=== PATIENT | male | born 1970 | race Two or more races ===

== ENCOUNTER 2024-09-03 20:46 | Emergency (ER) | payer MEDICAID, OTHER, SELFPAY ==
--- NOTE | ~2024-09-03 | XR_ITS ---
CLINICAL HISTORY: sob 1 view chest x-ray Comparison: None Findings: No consolidation or effusion. Mild bilateral emphysematous changes. No pneumothorax. Cardiac silhouette and mediastinal contours are at the upper limits of normal for technique. Osseous structures are unremarkable for technique. IMPRESSION: No consolidation. This document has been electronically signed by: Raul Robetrs MD on 09/03/2024 21:26:20
[2024-09-03 20:51] VITALS: BP 141/98; PULSE 89; RESP 18; TEMP 36.3; O2SAT 97; BMI 29.6
--- NOTE | 2024-09-03 20:51 | ECG_ITS ---
Test Reason : TACHYCARDIA Blood Pressure : */* mmHG Vent. Rate : 74 BPM Atrial Rate : 74 BPM P-R Int : 166 ms QRS Dur : 86 ms QT Int : 368 ms P-R-T Axes : 41 48 21 degrees QTcB Int : 408 ms Normal sinus rhythm Normal ECG No previous ECGs available Referred By: Josseline Gunter Electronically Signed By: Corbin Meraz
--- NOTE | 2024-09-03 20:53 | ED.GENADULT ---
HPI - General Adult General Chief complaint: General Medical Stated complaint: tachycardia Time Seen by Provider: 09/03/24 21:41 Source: patient Mode of arrival: ambulatory Limitations: no limitations History of Present Illness ED Provider: HPI narrative: Patient's history of hypertension and palpitation came from [place] unable to get his medication filled asking for refill of the medication patient did not take his medication for last 2 days on arrival patient's blood pressure was 141/98 pulse rate of 89 no chest pain no shortness a breath Related Data Previous Rx's ?Medication ?Instructions ?Recorded olmesartan 40 mg tablet 40 mg PO DAILY #90 tabs 09/03/24 propranolol 10 mg tablet 10 mg PO BID #180 tabs 09/03/24 Allergies Allergy/AdvReac Type Severity Reaction Status Date / Time No Known Allergies Allergy Verified 09/03/24 20:52 Review of Systems Review of Systems: Yes all other systems are reviewed and are negative [facility] Social History Social History Smoked in Last 30 Days: No Use of substances other than those prescribed or required for medical reasons: No Advance Directives: No Advance Directives Information Provided: No Do you have a plan to hurt others: No Plan Physical Exam ED Vital Signs: Vital Signs - 24 hr 09/03/24 20:51 09/03/24 22:29 09/03/24 22:36 Temperature 97.4 F 98.9 F 98.9 F Pulse Rate 89 83 83 Respiratory Rate 18 18 18 Blood Pressure 141/98 H 141/94 H 141/94 H Pulse Oximetry 97 96 96 Oxygen Delivery Method Room Air Room Air Room Air BMI result Body Mass Index 29.6 Appearance: Alert. Oriented X3. No acute distress. Eyes: PERRLA, No Nystagmus ENT: Pharynx normal. Oral Mucosa moist Neck: Normal inspection. Neck supple. CVS: Normal heart rate and rhythm. Pulses normal. Respiratory: No respiratory distress. Equal air entry bilateral, no wheezing/rales/rhonchi Abdomen: Soft and nontender. Bowel sounds are present, no mass palpable, no CVA tenderness Skin: Skin warm and dry. Normal skin color. Normal skin turgor. Extremities: No lower extremity edema. No calf tenderness Neuro: Oriented X 3. No motor deficit. No sensory deficit.No cerebellar signs , cranial nerves II-XII intact Course Course Course Narrative: This is a rapid medical exam performed by Josseline Guntre PA-C. The patient is a 54-year-old male with a history of hypertension, who is here with the tachycardia. Patient states he is visiting the area, he ran out of his blood pressure medication, he is noted to have palpitations. He denies chest pain. To note the patient does take beta-blockers. Plan to screen basic labs, a troponin EKG and chest x-ray. The patient was stable and can return to the waiting room pending his full medical assessment. Medications Administered Discontinued Medications Generic Name Dose Route Start Last Admin Trade Name Freq PRN Reason Stop Dose Admin Losartan Potassium 50 mg 09/03/24 22:14 09/03/24 22:21 Losartan Potassium 50 Mg Tablet PO 09/03/24 22:15 50 mg ONCE ONE Administration Protocol Propranolol HCl 10 mg 09/03/24 22:14 09/03/24 22:21 Propranolol Hcl 10 Mg Tablet PO 09/03/24 22:15 10 mg ONCE ONE Administration Protocol Medical Decision Making Medical Decision Making MDM Narrative: Patient's medication was refilled feeling much better , labs are stable Lab Data [facility] Lab Attestation statement: I reviewed the patient's lab results. 09/03/24 21:19 09/03/24 21:19 Labs: Lab Results 09/03/24 Range/Units 21:19 WBC 5.9 (4.8-10.8) X10*3/uL RBC 5.03 (4.60-5.80) X10*6/uL Hgb 13.9 L (14.0-18.0) g/dl Hct 41.3 L (42.0-52.0) % MCV 82.1 (80.0-98.0) fL MCH 27.6 (27.0-33.0) pg MCHC 33.7 (31.0-36.0) g/dl RDW 15.9 (11.0-16.0) % Plt Count 415 H (160-400) X10*3/uL MPV 8.8 L (9.4-12.4) fL Immature Gran % (Auto) 0.3 (0.0-0.4) % Neut % (Auto) 47.8 (45-73) % Lymph % (Auto) 35.0 (20-40) % Mercer % (Auto) 12.0 H (2-11) % Eos % (Auto) 3.9 (0-4) % Baso % (Auto) 1.0 (0-2) % Lymph # (Auto) 2.1 (1.2-4.9) X10*3/uL Mercer # (Auto) 0.7 (0.1-1.2) X10*3/uL Eos # (Auto) 0.2 (0.0-0.4) X10*3/uL Baso # (Auto) 0.1 (0.0-0.2) X10*3/uL Abs Immat Gran (auto) 0.02 (0.00-0.03) X10*3/uL Absolute Neuts (auto) 2.8 (2.0-8.3) x10*3/uL Absolute Nucleated RBC 0.000 (0.0-0.012) X10*3/uL Nucleated RBC % (auto) 0.0 (0.0-0.2) /100WBC Sodium 137 (135-145) mmol/L Potassium 4.7 (3.3-5.1) mmol/L Chloride 105 (96-108) mmol/L Carbon Dioxide 24 (22-29) mmol/L Anion Gap 13 (12-20) BUN 14 (9-16) mg/dL Creatinine 1.04 (0.5-1.4) mg/dL Estim Creat Clear Calc 98.9 Estimated GFR > 60 Random Glucose 98 (60-115) mg/dL Calcium 9.8 (8.4-10.2) mg/dL Magnesium 2.0 (1.6-2.6) mg/dL Total Bilirubin 0.3 (0.0-1.0) mg/dL AST 41 H (5-37) U/L ALT 54 H (0-40) U/L Alkaline Phosphatase 129 H (39-117) U/L Troponin I High Sens < 2.7 (<3.5-35.0) ng/L Total Protein 8.1 H (6.5-8.0) g/dL Albumin 4.4 (3.5-5.0) g/dL Discharge Plan Discharge Clinical Impression: Hypertension, Palpitations Patient Disposition: Home, Self-Care Instructions: Heart Palpitations (ED), Chronic Hypertension (DC) Additional Instructions: Take medication as prescribed Follow with PCP Prescriptions: New propranolol 10 mg tablet 10 mg PO BID Qty: 180 3RF olmesartan 40 mg tablet 40 mg PO DAILY Qty: 90 3RF Interventions: ED Discharge Assessment Last Done: 09/03/24 22:36 Discharge Date/Time: 09/03/24 22:36 Print Language: Portuguese
[2024-09-03 21:31] LABS: MANUAL DIFF FLAG NO
[2024-09-03 21:35] LABS: Basophils Absolute Auto 0.1 X10*3/uL (0.0-0.2); Eosinophils Absolute Auto 0.2 X10*3/uL (0.0-0.4); Eosinophils Percent Auto 3.9 % (0-4); Hematocrit 41.3 % (42.0-52.0); Hemoglobin 13.9 g/dl (14.0-18.0); Imm Gran Abs Auto 0.02 X10*3/uL (0.00-0.03); Imm Gran Pct Auto 0.3 % (0.0-0.4); Lymphocytes Absolute Auto 2.1 X10*3/uL (1.2-4.9); Mean Corpuscular HGB Conc 33.7 g/dl (31.0-36.0); Mean Corpuscular Hemoglobin 27.6 pg (27.0-33.0); Mean Corpuscular Volume 82.1 fL (80.0-98.0); Mean Platelet Volume 8.8 fL (9.4-12.4); Monocytes Absolute Auto 0.7 X10*3/uL (0.1-1.2); Neutrophils Absolute Auto 2.8 x10*3/uL (2.0-8.3); Neutrophils Percent Auto 47.8 % (45-73); Platelet Count 415 X10*3/uL (160-400); Red Blood Count 5.03 X10*6/uL (4.60-5.80); Red Cell Distribution Width 15.9 % (11.0-16.0); White Blood Count 5.9 X10*3/uL (4.8-10.8)
[2024-09-03 21:49] LABS: Alanine Aminotransferase 54 U/L (0-40); Albumin Level 4.4 g/dL (3.5-5.0); Alkaline Phosphatase 129 U/L (39-117); Anion Gap 13 (12-20); Aspartate Amino Transferase 41 U/L (5-37); Bilirubin Total 0.3 mg/dL (0.0-1.0); Blood Urea Nitrogen 14 mg/dL (9-16); Calcium 9.8 mg/dL (8.4-10.2); Carbon Dioxide 24 mmol/L (22-29); Chloride 105 mmol/L (96-108); Creatinine Clr Calc Pharmacy 98.9; Estimated Glomerular Filt Rate > 60; Glucose Random 98 mg/dL (60-115); Potassium 4.7 mmol/L (3.3-5.1); Sodium 137 mmol/L (135-145); Total Protein 8.1 g/dL (6.5-8.0)
[2024-09-03 21:58] LABS: Troponin-I High Sensitivity < 2.7 ng/L (<3.5-35.0)
--- NOTE | 2024-09-03 22:03 | PC.NURSE ---
[place] [facility] [place] assumed care at this time. Pt reports he ran out of meds while here visiting his mom. Denies any symptoms. Provider to bedside for primary eval.
[2024-09-03] MEDS: Propranolol HCL 10 MG TABLET PO (22:21)
[2024-09-03] MEDS: Losartan Potassium 50 MG TABLET PO (22:21)
[2024-09-03 22:29] VITALS: BP 141/94; PULSE 83; RESP 18; TEMP 37.2; O2SAT 96
[2024-09-03 22:36] VITALS: BP 141/94; PULSE 83; RESP 18; TEMP 37.2; O2SAT 96
== END 2024-09-03 22:36 | disposition home or self-care (01) ==
PROVIDERS: Physician Assistant Medical; Emergency Provider Internal Medicine
DX: R00.0 Tachycardia, unspecified (principal); I10 Essential (primary) hypertension; R00.2 Palpitations; Z79.899 Other long term (current) drug therapy
CPT/HCPCS: 36415; 71045; 80053; 83735; 84484; 85025; 93005; 99283; 99284

== ENCOUNTER → 2024-09-03 20:51 | Outpatient (BNV) | payer SELFPAY | PROVIDERS: Emergency Provider Internal Medicine; Visit Provider Internal Medicine Cardiovascular Disease | DX: R00.0 Tachycardia, unspecified (principal) | CPT/HCPCS: 93010 ==

== ENCOUNTER → 2024-09-03 20:51 | Outpatient (BNV) | payer SELFPAY | PROVIDERS: Emergency Provider Internal Medicine; Visit Provider Radiology Neuroradiology | DX: R06.02 Shortness of breath (principal) | CPT/HCPCS: 71045 ==

== ENCOUNTER → 2024-12-30 22:31 | Outpatient (BNV) | payer MEDICAID, SELFPAY | PROVIDERS: Emergency Provider Emergency Medicine; Visit Provider Radiology Diagnostic Radiology | DX: M25.522 Pain in left elbow (principal) | CPT/HCPCS: 73080 ==

== ENCOUNTER 2024-12-30 23:18 | Emergency (ER) | payer MEDICAID, OTHER, SELFPAY ==
--- NOTE | ~2024-12-30 | XR_ITS ---
CLINICAL HISTORY: pain 3 views left elbow Comparison: None Findings: There is an ossific fragment which appears corticated posterior to the elbow joint in the region of the triceps tendon likely heterotopic ossification or chronic avulsion fracture. There may be mild posterior soft tissue swelling. Joint spaces and joint alignment are normal. No elbow effusion is seen. 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 This document has been electronically signed by: Sohan Oneill MD on 12/31/2024 00:15:38
[2024-12-30 23:21] VITALS: BP 133/72; PULSE 72; RESP 20; TEMP 36.6; O2SAT 99; BMI 32.4
--- NOTE | 2024-12-31 01:14 | ED.EXTPRO ---
HPI - Extremity Problem General Chief complaint: Extremity Injury, Upper Stated complaint: right elbow pain Time Seen by Provider: 12/31/24 00:37 Source: patient Mode of arrival: ambulatory Limitations: no limitations History of Present Illness ED Provider: Dr. Lima Pham HPI Narrative: Patient comes to the emergency room complaining of left elbow pain. 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 Patient states that he has been using ibuprofen without any significant relief. Patient states that at home he tried lifting a box and heard a crack at his elbow. Patient states that he called his orthopedic surgeon in [facility] and he was asked to try avoiding moving his arm/immobilize and NSAIDs. Patient states that he has history of bilateral bicipital tears. However, patient states that he did not get surgery because he can not afford. Related Data Previous Rx's ?Medication ?Instructions ?Recorded olmesartan 40 mg tablet 40 mg PO DAILY #90 tabs 09/03/24 propranolol 10 mg tablet 10 mg PO BID #180 tabs 09/03/24 ketorolac 10 mg tablet 10 mg PO Q8H PRN pain #12 tabs 12/31/24 Allergies Allergy/AdvReac Type Severity Reaction Status Date / Time No Known Allergies Allergy Verified 12/30/24 23:26 Review of Systems Review of Systems: Constitutional : No Weight loss, No Fever, No Chills, No Night Sweats, No Fatigue, No Malaise ENT/Mouth : No Hearing loss, No Ear Pain, No Nasal Congestion, No Sinus Pain, No Hoarseness, No sore throat, No Rhinorrhea, No Swallowing Difficulty Eyes: No Eye Pain, No Swelling, No Redness, No Foreign Body, No Discharge, No Vision Changes Cardiovascular : No Chest Pain, No SOB, No Dyspnea on Exertion, No Orthopnea, No Edema, No Palpitations Respiratory : No Cough, No Sputum, No Wheezing, No Smoke Exposure, No Dyspnea Gastrointestinal : No Nausea, No Vomiting, No Diarrhea, No Constipation, No abdominal Pain, No Hematochezia, No Melena Genitourinary : no irregular bleeding, No Dysuria, No Urinary Frequency, No Hematuria, No Urinary Incontinence, No Urgency, No Flank Pain, No Urinary Flow Changes, No Hesitancy Musculoskeletal : Complaining of left elbow pain, No Myalgias, No Joint Swelling Skin : No Skin Lesions, No rash Neuro : No Weakness, No Numbness, No Paresthesias, No Loss of Consciousness, No Dizziness, No Headache Psych : No Anxiety/Panic, No Depression, No SI/HI/AH/VH, No Social Issues, Heme/Lymph: No Bruising, No Bleeding,No Lymphadenopathy Endocrine : No Polyuria, No Polydipsia, No Temperature Intolerance [facility] Social History Social History Advance Directives: No Do you have a plan to hurt others: No Plan Physical Exam Vital Signs: Vital Signs: Last Vital Signs Temp 97.8 F 12/30/24 23:21 Pulse 72 12/30/24 23:21 Resp 20 12/30/24 23:21 BP 133/72 12/30/24 23:21 Pulse Ox 99 12/30/24 23:21 O2 Del Method Room Air 12/30/24 23:21 BMI result Body Mass Index 32.4 Const: Other: Appearance: Alert. Oriented X3. No acute distress. Eyes: Pupils equal, round and reactive to light. ENT: Pharynx normal. Neck: Normal inspection. Neck supple. No lymph nodes noted. No crepitus CVS: Normal heart rate and rhythm. Pulses normal. Normal S1 and S2 Respiratory: No respiratory distress. Breath sounds normal. No Wheezing. No rales Abdomen: Soft and nontender. No rigidity. No distention. Skin: Skin warm and dry. Normal skin color. Normal skin turgor. Extremities: No lower extremity edema. No Lacerations. No Rash. Patient is able to flex and extend the elbows with normal range of motion. However, it hurts doing so on the left. Patient has a small effusion. No ecchymosis, no erythema, no additional warmth to palpation over the joint. Neuro: Oriented X 3. No motor deficit. No sensory deficit. Moving all extremities. No slurred speech. CN 2 through 12 grossly intact Psych: calm, cooperative, normal affect Medical Decision Making Medical Decision Making MDM Narrative: X-rays of the elbow did not show any acute abnormality. Patient will have a chronic appearing ossific fragment in the region of the triceps tendon, likely a chronic avulsion fracture Given patient's history and physical exam, it is likely that patient has a trace tendon rupture/tear. Patient instructed to follow-up with orthopedics. Patient was given a dose of IM ketorolac and also a sling Patient will likely need an MRI. Differential Diagnosis Differential Diagnoses: The differential diagnosis associated with the presentation includes (Triceps tendon tear, olecranon fracture, bursitis, contusion) Radiology Impression Discussion of test interpretation with radiology: I have reviewed the radiologist's reading. Radiologist Impression: There is an ossific fragment which appears corticated posterior to the elbow joint in the region of the triceps tendon likely heterotopic ossification or chronic avulsion fracture. There may be mild posterior soft tissue swelling. Joint spaces and joint alignment are normal. No elbow effusion is seen. 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 Discharge Plan Discharge Clinical Impression: Injury of tendon of triceps Patient Disposition: Home, Self-Care Instructions: How to Use a Sling (ED) Additional Instructions: Please follow-up with your primary care physician tomorrow. If you have any worsening or new symptoms, please return to the emergency room or call 911 Prescriptions: New ketorolac 10 mg tablet 10 mg PO Q8H PRN (Reason: pain) Qty: 12 0RF Rx Instructions: Do not take this medication with ibuprofen or NSAIDs, only Tylenol if needed. No Action propranolol 10 mg tablet 10 mg PO BID Qty: 180 3RF olmesartan 40 mg tablet 40 mg PO DAILY Qty: 90 3RF Referrals: Bessie Alanis PA-C [Physician [facility], Orthopedics] Referral Note: Chronic avulsion fracture versus triceps tendon rupture/injury Stand Alone Forms: Work/School Release Print Language: Emirati
[2024-12-31 01:40] VITALS: BP 132/78; PULSE 75; RESP 16; TEMP 36.8; O2SAT 99
== END 2024-12-31 01:40 | disposition home or self-care (01) ==
PROVIDERS: Emergency Provider Emergency Medicine
DX: S46.301A Unspecified injury of muscle, fascia and tendon of triceps, right arm, initial encounter (principal); M25.522 Pain in left elbow; X50.0XXA Overexertion from strenuous movement or load, initial encounter; Y93.9 Activity, unspecified; Y92.9 Unspecified place or not applicable; Y99.0 Civilian activity done for income or pay
CPT/HCPCS: 73080; 96372; 99283; 99284; J1885

== ENCOUNTER 2025-01-05 14:02 | Outpatient (AMB) | payer MEDICAID, SELFPAY ==
--- NOTE | 2025-01-05 14:05 | MHC.OFFVIS ---
Vital Signs 01/05/25 14:22 Height 6 ft Weight 225 lb BMI 30.5 Intake Visit Reasons: left bicep injury, DOI 12/30/24 Intake Note: Guerrero is a 54 year old right hand dominant male who presents today for a evaluation of his left elbow pain, DOI 12/30/24. History of right shoulder surgery Patient states he lives in a 3rd floor which has a couple steps. He was coming down stairs with his phone in his left hand and his right hand was holding the bar which his slipped one the last couple steps until her tried to brace himself. He is taking naproxen with relief. 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 Remote Encoding Operations Supervisor Services: Remote Encoding Operations Supervisor Present (Latoya ([id number])) Allergies No Known Allergies Allergy (Verified 01/05/25 14:17) HPI HPI left bicep injury, DOI 12/30/24: Details: Mr. Bimal Lemus is a 54-year-old right-hand dominant male who presents to the office today for a left tricep injury that he sustained on 12/30/2024 after falling down the stairs. He felt immediate pain and developed bruising along the posterior medial aspect of the elbow. He also reports weakness with the left upper extremity after this injury. He denies any numbness or tingling. 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 Palpable defect of the triceps tendon insertion. Weakness with resisted extension. Denies numbness or tingling. NVI. Assessment & Plan Assessment & Plan (1) Rupture of left triceps tendon: Code(s): S46.312A - Strain of muscle, fascia and tendon of triceps, left arm, initial encounter Category: Medical Plan Dr. Mancia was available to see the patient with me in the office today in a collaborative treatment plan was created. Dr. Mancia and I discussed in detail the procedure and what to expect pre and post operatively. We discussed the risks, benefits and alternatives to the surgery as well as the rehabilitation course. The risks; which include, but are not limited to infection, bleeding, nerve injury, ongoing pain, swelling, and stiffness, perioperative risk of injury to bones and soft tissues, and blood clots. I?ve answered all questions and with their understanding they have consented to move forward with a left triceps tendon repair with Dr. Mancia. Additionally, I have ordered a stat MRI to evaluate the left triceps tendon rupture. Orders: Orders MR elbow LT w con Today S46.312A - Strain of muscle, fascia and tendon of triceps, left arm, initial encounter Coding Level of Care Code New Pt Level 4 (19257) Diagnoses Rupture of left triceps tendon S46.312A
[2025-01-05 14:22] VITALS: BMI 30.5
--- OUTSIDE RECORDS SUMMARY | 2025-01-05 14:54 | XMS_ITS | Clinical Summary ---
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 Name Role Phone Unavailable Primary Care Provider Unavailabl e Social History Tobacco Use Types Packs/Day Years Used Date Smoking Tobacco: Never Assessed Sex and Gender Information Value Date Recorded Sex Assigned at Not on file Legal Sex Male 12:39 PM EDT Gender Identity Not on file Sexual Orientation Not on file Plan of Treatment Upcoming Encounters Date Type Department Care Team ([facility] st Contact Info) Description 01/12/2025 1:45 PM EDT Telemedicine [facility] [address] [place] [address] Viktor Kelley MD [address] [place], [place] [id number] Health Maintenance Due Date Last Done Comments CT Colonography 1970 Colonoscopy 1970 Colorectal Cancer Screening 1970 Depression Screening 1970 FIT DNA/Cologuard 1970 FIT 1970 FOBT 1970 HIV Screening 1970 Lipid Panel 1970 SDOH Screening 1970 Sigmoidoscopy 1970 Disability Screening 1970 Alcohol/Substance Use Screening 1982 Tobacco Screening 1982 Hepatitis C Screening 1988 DTaP/Tdap/Td Vaccines (1 - Tdap) 1989 Hepatitis B Vaccines (1 of 3 - 19+ 3-dose series) 1989 Pneumococcal Vaccine: 50+ Ye ars (1 of 1 - PCV) 2020 Zoster Vaccines (1 of 2) 2020 COVID-19 Vaccine ( - 2023-2 5 season) 2024 Influenza Vaccine (#1) 2025 RSV Patients and Pa tients Aged 60 years or older (1 - 1-dose 75+ series) 2045 HIB Vaccines Aged Out No longer eligi ble based on patient's age to complete this topic HPV Vaccines Aged Out No longer eligi ble based on patient's age to complete this topic Hepatitis A Vaccines Aged Out No long er eligible based on patient's age to complete this topic IPV Vaccines Aged Out No longer eligi ble based on patient's age to complete this topic Meningococcal B Vaccine Aged Out No l onger eligible based on patient's age to complete this topic Meningococcal Vaccine Aged Out No berna rogelio eligible based on patient's age to complete this topic RSV under 20 months Aged Out No longe r eligible based on patient's age to complete this topic Rotavirus Vaccines Aged Out No longer eligible based on patient's age to complete this topic Insurance [facility]
== END 2025-01-05 15:22 | disposition home or self-care (01) ==
LOC: HO.HOS 14:03
PROVIDERS: Visit Provider Physician Assistant
DX: S46.312A Strain of muscle, fascia and tendon of triceps, left arm, initial encounter (principal)
CPT/HCPCS: 99204

== ENCOUNTER → 2025-01-05 14:02 | Outpatient (BNVA) | payer MEDICAID, OTHER, SELFPAY | PROVIDERS: Visit Provider Physician Assistant | DX: M25.522 Pain in left elbow (principal); S46.312A Strain of muscle, fascia and tendon of triceps, left arm, initial encounter | CPT/HCPCS: 99212 ==

== ENCOUNTER 2025-02-02 14:02 | Outpatient (REF) | payer MEDICAID, OTHER, SELFPAY ==
[2025-02-02 16:25] LABS: MANUAL DIFF FLAG NO
[2025-02-02 16:55] LABS: Hematocrit 36.3 % (42.0-52.0); Hemoglobin 11.6 g/dl (14.0-18.0); Imm Gran Abs Auto 0.05 X10*3/uL (0.00-0.03); Imm Gran Pct Auto 0.9 % (0.0-0.4); Lymphocytes Absolute Auto 2.2 X10*3/uL (1.2-4.9); Mean Corpuscular HGB Conc 32.0 g/dl (31.0-36.0); Mean Corpuscular Hemoglobin 26.2 pg (27.0-33.0); Mean Corpuscular Volume 82.1 fL (80.0-98.0); NRBC Abs Auto 0.000 X10*3/uL (0.0-0.012); NRBC Pct Auto 0.0 /100WBC (0.0-0.2); Platelet Count 392 X10*3/uL (160-400); Red Blood Count 4.42 X10*6/uL (4.60-5.80); White Blood Count 5.9 X10*3/uL (4.8-10.8)
[2025-02-02 17:25] LABS: Alanine Aminotransferase 38 U/L (0-40); Albumin Level 4.4 g/dL (3.5-5.0); Alkaline Phosphatase 92 U/L (39-117); Anion Gap 14 (12-20); Aspartate Amino Transferase 26 U/L (5-37); Blood Urea Nitrogen 18 mg/dL (9-16); Calcium 9.0 mg/dL (8.4-10.2); Carbon Dioxide 23 mmol/L (22-29); Chloride 105 mmol/L (96-108); Cholesterol 237 mg/dL (<200); Estimated Glomerular Filt Rate > 60; HDL Cholesterol 60 mg/dL (>40); Potassium 3.9 mmol/L (3.3-5.1); Sodium 138 mmol/L (135-145); Total Protein 7.1 g/dL (6.5-8.0); Triglycerides 91 mg/dL (<150)
== END 2025-02-02 14:03 | disposition home or self-care (01) ==
LOC: HO.HHCL 14:02
PROVIDERS: Referring Provider Nurse Practitioner Family; Visit Provider Nurse Practitioner Family
DX: I10 Essential (primary) hypertension (principal)
CPT/HCPCS: 36415; 80053; 80061; 85025

== ENCOUNTER 2025-02-26 13:56 | Outpatient (RCR) | payer MEDICAID, OTHER, SELFPAY ==
--- NOTE | 2025-02-05 14:58 | MHC.OT.EP ---
[facility] Office [address] [phone] F: [phone] F: [phone] Occupational Therapy Plan of Care Patient Name: Guerrero Lemus Date of Evaluation: 02/05/25 Diagnosis: Left Tricep Tendon Rupture Pain Location: Minimal pain in posterior elbow at distal tricep (medially), tender to palpate Pain Score: 3 Pain Scale Used: Numeric (0 - 10) Aggravating Factors: Avoiding heavy lifting Alleviating Factors: Ibuprofen, ice Assessment: 54 yo male presents to OT for conservative treatment of left tricep tendon rupture. He was initially seen in ED and referred for surgery, but no-showed for surgery x2 and now referred to OT. MRI ordered (not completed because of work limitations). On assessment today, he has mild pain in distal tricep with tenderness to palpate and soft tissue mass present at posterior elbow. He has full AROM on elbow, MMT NT, but gross grasp intact and patient avoiding heavy use. We will continue OT for conservative treatment and progress strengthening through protocol. Frequency and Duration: The patient will be seen 2x/wk for 6 weeks Short Term Goals: Ind w/ soft tissue massage and edema management Ind w/ joint protection/activity modification for protection Alf Goals: Ind w/ progression of strengthening Ease w/ IADL and work tasks Treatment Plan: Therapeutic Exercise Therapeutic Activity Home Exercise Program Patient Education Edema Control ADL Training Ultrasound MHP Cold Packs Soft Tissue Mobilization Kinesiotaping Electronically Signed By: Toshia Jurado OTR/L CHT Please Sign and return to therapist. Thank you once again for your referral.
--- NOTE | 2025-03-03 14:56 | MHC.OT.DC ---
[facility] Office [address] [phone] F: [phone] F: [phone] Occupational Therapy Discharge Note Patient Name: Guerrero Lemus Provider: Bessie Alanis PA-C Diagnosis: Left Tricep Tendon Rupture Date of Evaluation: 02/05/25 Date of Discharge: 03/02/25 Treatments to Date: 3 Cancellations to Date: 3 No Shows to Date: 4 Discharge Status: Independent with HEP Visit Non-compliance Discharge Summary: Guerrero was referred to OT for left elbow pain, had left tricep tendon rupture, missed two surgical appts and no longer surgical candidate. He was seen for initial OT eval and had two follow up visits, but has missed several appts (3 cancels and 4 no-shows). At last visit reported low pain in elbow, not localized to posterior arm but moreso in lateral and medial elbow and reports he continues to lift heavy at work. We have had difficulty redirecting back to task through therapy, somewhat limiting and vague at times w/ history and use. Continues to do heavy lifting and reports 40-45lb lifting daily, but it is unclear if it is for work or as a favor for employer. He has been educated on joint protection and activity modification, but we will be discharging from therapy at this time per policy. Electronically Signed By: CIERRA Meléndez/Tabatha CHT Reviewed/agree with student documentation: Therapist: Please Sign and return to therapist, thank you for your referral.
== END 2025-03-03 14:56 | disposition home or self-care (01) ==
LOC: HO.OT 13:56
PROVIDERS: Visit Provider Physician Assistant
DX: S46.312D Strain of muscle, fascia and tendon of triceps, left arm, subsequent encounter (principal)
CPT/HCPCS: 97110; 97140; 97165

== ENCOUNTER 2025-04-08 11:10 | Outpatient (AMB) | payer OTHER, MEDICAID, SELFPAY ==
--- NOTE | 2025-04-08 11:11 | MHC.OFFVISWM ---
Intake Visit Reasons: Colonoscopy Screening Intake Note: Patient new consult for 1st pre Colonoscopy screening. Patient cc: Physician Assistant Certified Required: No Accompanied by: Self / Same As Patient Allergies No Known Allergies Allergy (Verified 04/08/25 11:11) PFSH Social History Alcohol intake: never Patient Tobacco Use Status: Never used Tobacco Current occupational status: employed Current occupation: [employer]
--- NOTE | 2025-04-08 11:14 | A.OFFVIS_ITS ---
Vital Signs 04/08/25 11:17 Height 6 ft Weight 226 lb BMI 30.6 BP 124/73 Blood Pressure Location Lt brachial Position Sitting Pulse 79 Pulse Oximetry (%) 98 Oxygen Delivery Method Room Air Intake Visit Reasons: Colonoscopy Screening Intake Note: Patient new consult for pre Colonoscopy screening. Patient cc: acid reflux, between diarrhea and constipation with some rectal bleeding in the pass. Senior Mortgage Underwriter Required: Yes Senior Mortgage Underwriter Services: Senior Mortgage Underwriter Present Senior Mortgage Underwriter Name: [id number] Accompanied by: Self / Same As Patient Allergies No Known Allergies Allergy (Verified 04/08/25 11:11) HPI HPI Colonoscopy Screening: Details: Patient is a 55-year-old Upper Sorbian speaking male with PMH of diabetes, hypertension, hyperlipidemia. Referred for pre colonoscopy screening. Somewhat of a difficult visit as patient arrived late and initially declined need for cone runner services. Challenges with HPI despite use of cone runner. Guerrero reports a lifelong pattern of alternating diarrhea and constipation, with diarrhea predominating. Current bowel movements are typically each morning, but there is occasional loss of control noted. The most recent episode of diarrhea reportedly lasted about three days and spontaneously resolved. Two years ago, there was an episode of rectal bleeding as well as hematemesis, with associated hospitalization at that time. The patient denies ongoing rectal bleeding. Abdominal pain is present during changes in bowel habits and resolves after bowel movements. There is intermittent morning nausea without vomiting, often improved with cold water or omeprazole; however, the patient notes minimal relief from omeprazole overall. No significant regurgitation except after late meals or certain foods (beans, vegetables, meat); symptoms appear to be exacerbated by stress. The patient has a remote diagnosis of erosive (non- ulcerative) gastritis via prior upper endoscopy in [facility], with two negative H. pylori biopsies. No history of colonoscopy. The patient?s appetite is stable, but diet is limited to intermittent fasting with minimal breakfast (oats with coffee and milk, some bread). Weight gain from 170 to 236 lbs since moving to the is noted, attributed to lifestyle changes and associated with development of prediabetes and obesity. Relevant comorbidities include prediabetes and self-reported obesity. Patient denies: fever/chills, vomiting, appetite changes, dysphasia, unintentional wt loss or melena/hematochezia. 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 Physical Exam Vital Signs: Last Vital Signs Pulse 79 04/08/25 11:17 BP 124/73 04/08/25 11:17 Pulse Ox 98 04/08/25 11:17 Oxygen Delivery Method Room Air 04/08/25 11:17 BMI result Body Mass Index 30.6 Const General: healthy appearing, no acute distress and well developed Nutritional Appearance: average body habitus Orientation/consciousness: patient oriented x3 HEENT Head: Yes normal to inspection, Yes normocephalic and Yes atraumatic Face and sinus: Yes normal facial exam Eyes General: appearance normal, both eyes and all related structures Neck Neck: Yes normal visual inspection Resp Effort & Inspection: normal respiratory effort, able to speak in complete sentences, no tracheal deviation and symmetric chest movement Neuro General: patient oriented x3 Gait exam (Neuro): Normal gait present Psych Appearance: grossly normal Mental Status: mental status grossly normal Speech and movement: Normal speech and movement present Affect: Anxious affect present Attitude: cooperative Thought process: Normal thought process present Thought content: Normal thought content present Insight: Fair insight present (Psych) Judgement: Good judgement present (Psych) Assessment & Plan Assessment & Plan (1) Colon cancer screening: Code(s): Z12.11 - Encounter for screening for malignant neoplasm of colon Category: Medical Plan: age-appropriate; personal hx of chronic bowel changes. Family hx colon ca (maternal cousin, aunt) Colonoscopy ordered for CRC screening and evaluation of symptoms Education provided on colonoscopy process and importance of screening. Will review prep at follow up. (2) Acid reflux: Code(s): K21.9 - Gastro-esophageal reflux disease without esophagitis Category: Medical Qualifiers: Esophagitis presence: esophagitis presence not specified Qualified Code(s): K21.9 - Gastro-esophageal reflux disease without esophagitis Plan: Past EGD with subjective erosive mucosal changes, negative H. pylori; ongoing dyspeptic symptoms responsive to acid suppression Additional Testing: - Monitor for recurrence of overt GI bleeding or new symptoms post-colonoscopy Medication Management: - Omeprazole 40 mg QD; effectiveness variable per patient, monitor for continued need/adherence Lifestyle Recommendations: - Avoid known food triggers; continue avoidance of NSAIDs Follow-Up: - Further upper GI evaluation if new symptoms or bleeding recurs (3) Diarrhea: Code(s): R19.7 - Diarrhea, unspecified Category: Medical Qualifiers: Diarrhea type: unspecified type Qualified Code(s): R19.7 - Diarrhea, unspecified Plan: Lifelong alternating bowel habit, recent diarrhea; family history of colon cancer; age-appropriate for CRC screening Additional Testing: - Stool studies ordered: screen for inflammation, celiac serology - Colonoscopy planned for diagnostic and screening purposes Medication Management: - Continue omeprazole PRN for upper GI symptoms Lifestyle Recommendations: - Reinforce importance of balanced diet, regular meal times, weight loss counseling may be indicated at follow-up Follow-Up: - Schedule follow-up after lab and stool study results for colonoscopy preparation and further evaluation Plan Follow-up next available appt to review prep. Time: I spent a total of 45 minutes on the date of encounter which includes: Preparing to see the patient (reviewed previous documentation, test results and medical history) Performing a medically appropriate exam and/or evaluation Ordering medications, tests, and procedures Documenting clinical information in the health record Orders: Orders Transglutaminase IgA 04/08/25 R19.7 - Diarrhea, unspecified Calprotectin, Fecal 04/08/25 R19.7 - Diarrhea, unspecified C Reactive Protein 04/08/25 R19.7 - Diarrhea, unspecified IRON PROFILE Today D64.9 - Anemia, unspecified Vitamin B12 and Folate Today D64.9 - Anemia, unspecified Referrals GI Procedure Notification K21.9 - Gastro-esophageal reflux disease without esophagitis, Z12.11 - Encounter for screening for malignant neoplasm of colon Coding Level of Care Code New Pt New Pt Level 4 (28223) Patient Type New Diagnoses Colon cancer screening Z12.11 Gastroesophageal reflux disease, unspecified whether esophagitis present K21.9 Esophagitis presence: esophagitis presence not specified Diarrhea, unspecified type R19.7 Diarrhea type: unspecified type
[2025-04-08 11:17] VITALS: BP 124/73; PULSE 79; O2SAT 98; BMI 30.6
--- OUTSIDE RECORDS SUMMARY | 2025-04-08 15:11 | XMS_ITS | Clinical Summary ---
Author Organization [employer] Address [address] [place] [address] Care Team Providers Care Clockmaker Name Role Phone Viktor Kelley MD Primary Care Prov ider Allergies No known active allergies Medications propranolol (Inderal) 20 MG tablet Take 1 tablet (20 mg) by mouth Once per day. 90 tablet 5 Active hydrALAZINE (Apresoline) 25 MG tablet Take 25 mg by mouth Once per day. Active metFORMIN (Glucophage) 500 MG tablet Take 1 tablet by mouth every 6 (six) hours during the day. 5 Active valsartan (Diovan) 320 MG tabletIndication s:Hypertension, unspecified type Take 1 tablet (320 mg) by mouth Once per day. 30 tablet 1 5 Active lidocaine (Lidoderm) 5 % patchIndications :Left elbow pain Apply 1 patch topically Once per day. Remove & discard patch within 12 hours or as directed by . 30 patch 2 5 02/12/20 26 Active tiZANidine (Zanaflex) 2 MG tablet Take 1 tablet (2 mg) by mouth every 8 (eight) hours if needed for muscle spasms for up to 10 days. 30 tablet 5 Active Active Problems Problem Noted Date Diagnosed Date Chronic pain of both knees 03/11/2025 Assessment & Plan (03/11/2025 7:44 PM EDT): Will refer to ortho for evaluation Hypertension 02/02/2025 Assessment & Plan (02/02/2025 4:02 PM EDT): Pt reports usually at control with olmesartan 40 mg, propranolol LA 20 mg, recently elevated bp and with advice from product development scientist from home pt increased to BID temporarily, due to this, pt is out of meds and bp is now elevated See note for previous med trials Will change to valsartan due to early fill Consider adding hydrochlorothiazide. If not at goal Pt already has referral placed for cardiology Family history of hypercholesterolemia Encounter for medical examination to establish c are 01/12/2025 Assessment & Plan (01/12/2025 2:34 PM EDT): ER last year: august due to running out of medication Hospitalization: PMHx: HTN, cholesterol, prediabetes, biceps tear, gastric ulcer Pshx: left rotator cuff All: - Meds: olmersartan 40mg daily, propanolol 10mg 2 tabs, omega 3, esomeprazole Colonoscopy: due Primary hypertension 01/12/2025 Assessment & Plan (03/11/2025 7:43 PM EDT): Controlled, continue low sodium diet and exercise as tolerated, follow up in 4 months Assessment & Plan (01/12/2025 2:37 PM EDT): Will renew olmersartan 40mg and propanolol, continue low sodium diet and exercise as tolerated Screening for colon cancer 01/12/2025 Epigastric pain 01/12/2025 Encounters Date Type Department Care Team Description 03/09/2025 3:30 PM EDT Office Visit [facility] [address] [place] [address] Viktor Kelley MD Primary hypertension (Primary Dx); Chronic pain of both knees; Varicose veins of bilateral lower extremities with other complications 03/09/2025 Travel 03/06/2025 Telephone [facility] [address] [place] [address] Viktor Kelley MD chart prep 03/02/2025 Travel 02/12/2025 Telephone [facility] [address] [place] [address] Erasmo Cee MD PA 02/11/2025 4:00 PM EDT Office Visit [facility] [address] [place] [address] Erasmo Cee MD Left elbow pain (Primary Dx); Injury of left elbow, initial encounter 02/11/2025 Travel 02/02/2025 3:40 PM EDT Office Visit [facility] [address] [place] [address] Adelita Knutson NP Hypertension, unspecified type (Primary Dx); Family history of hypercholesterolemia 02/02/2025 Travel 01/12/2025 1:45 PM EDT Telemedicine [facility] [address] [place] [address] Viktor Kelley MD Encounter for medical examination to establish care (Primary Dx); Primary hypertension; Screening for colon cancer; Epigastric pain; Eye exam, routine 01/12/2025 Travel from Last 3 Months Family History Medical History Relation Name Comments Hypertension Brother Hypertension Father Leukemia Mother Prostate cancer Mother's Brother Colon cancer Mother's Sister Relation Name Status Comments Brother Father Mother Mother's Brother Mother's Sister Social History Tobacco Use Types Packs/Day Years Used Date Smoking Tobacco: Never Passive Smoke Exposure: Never Smokeless Tobacco: Never Tobacco Cessation:Counseling Given: Not Answered Alcohol Use Standard Drinks/Week Comments Never 0 (1 standard drink = 0.6 oz pur e alcohol) Depression Answer Date Recorded Patient Health Questionnaire-9 Score 1 01/12/2025 Patient Health Questionnaire-9 Score 1 01/12/2025 Last PHQ-9: Questionnaire Data Not on file 0 01/12/2025 Housing Stability Answer Date Recorded What is your housing situation today? I have janice barboza 01/12/[address] you li ve. Do you have problems with any of the following? None of the above 01/12/2025 Food Insecurity Answer Date Recorded Within the past 12 months, y ou worried that your food would run out before you got money to buy more: Never True 01/12/2025 Within the past 12 months,th e food you bought just didn't last and you didn't have enough money to get more: Never True Transportation Answer Date Recorded In the past 12 months, has l ack of transportation kept you from medical appts, meetings, work or from getting things needed for daily living? No 01/12/2025 Utilities Answer Date Recorded In the past 12 months, has t he electric, gas, oil or water company threatened to shut off services in your home? No 01/12/2025 Depression Answer Date Recorded Patient Health Questionnaire-2 Score 1 01/12/2025 Internet Access Answer Date Recorded Internet Access Q1 Yes 01/12/2025 Internet Access Q2 Not on file 01/12/2025 Sex and Gender Information Value Date Recorded Sex Assigned at Male 01/09/2025 3:50 PM EDT Legal Sex Male 12:39 PM EDT Gender Identity Male 01/09/2025 3:50 PM EDT Sexual Orientation Don't know 01/09/2025 3: 51 PM EDT Last Filed Vital Signs Vital Sign Reading Time Taken Comments Blood Pressure 132/80 03/09/2025 3:39 PM EDT Pulse 78 03/09/2025 3:39 PM EDT Temperature 36.6 C (97.8 F) 03/09/2025 3:39 PM EDT Respiratory Rate 18 03/09/2025 3:39 PM EDT Oxygen Saturation 97% 03/09/2025 3:39 PM EDT Inhaled Oxygen Concentration - - Weight 104 kg (230 lb) 03/09/2025 3:39 PM EDT Height - - Body Mass Index - - Plan of Treatment Upcoming Encounters Date Type Department Care Team (Late st Contact Info) Description 04/30/2025 1:45 PM EST Office Visit [facility] [address] [place] [address] Katie Roque, OD [address] [place] [address] Health Maintenance Due Date Last Done Comments CT Colonography 1970 Colonoscopy 1970 Colorectal Cancer Screening 1970 FIT DNA/Cologuard 1970 FIT 1970 FOBT 1970 HIV Screening 1970 Sigmoidoscopy 1970 Hepatitis C Screening 1988 DTaP/Tdap/Td Vaccines (1 - Tdap) 1989 Hepatitis B Vaccines (1 of 3 - 19+ 3-dose series) 1989 Pneumococcal Vaccine: 50+ Years (1 of 1 - PCV) 2020 Zoster Vaccines (1 of 2) 2020 COVID-19 Vaccine (1 - 2023-2 5 season) 2025 Influenza Vaccine (#1) 2025 Alcohol/Substance Use Screening 01/12/2026 01/12/2025 Depression Screening 01/12/2026 01/12/2025, 01/12/2025 SDOH Screening 01/12/2026 01/12/2025 Tobacco Screening 02/11/2026 02/11/2025 Disability Screening 03/02/2026 03/02/2025 Lipid Panel 02/02/2030 02/02/2025 RSV Patients and Patients Aged 60 years or older (1 - [...] on patient's age to complete this topic Procedures Procedure Name Priority Date/Time Associated Diagnosis Comments LIPID PANEL, STANDARD Routine 02/02/2025 2:11 PM EDT Hypertension, unspecified type CBC WITH AUTO DIFFERENTIAL Routine 02/02/2025 2:11 PM EDT Hypertension, unspecified type COMPREHENSIVE METABOLIC PANEL Routine 02/02/2025 2:11 PM EDT Hypertension, unspecified type from Last 3 Months Results * (ABNORMAL) CBC auto differential (02/02/2025 2:11 PM EDT) White Blood Count 5.9 4.8 - 10.8 X10*3/uL [facility] Red Blood Count 4.42(L) 4.60 - 5.80 X10*6/uL [facility] Hemoglobin 11.6(L) 14.0 - 18.0 g/dl [facility] Hematocrit 36.3(L) 42.0 - 52.0 % [facility] Mean Corpuscular Volume 82.1 80.0 - 98.0 fL [facility] Mean Corpuscular Hemoglobin 26.2(L) 27.0 - 33.0 pg [facility] Mean Corpuscular HGB Conc 32.0 31.0 - 36.0 g/dl [facility] Red Cell Distribution Width 16.1(H) 11.0 - 16.0 % [facility] Platelet Count 392 160 - 400 X10*3/uL [facility] Mean Platelet Volume 9.4 9.4 - 12.4 fL [facility] Neutrophils Percent Auto 48.5 45 - 73 % [facility] Imm Gran Pct Auto 0.9(H) 0.0 - 0.4 % [facility] Lymphocytes Percent Auto 38.0 20 - 40 % [facility] Monocytes Percent Auto 10.9 2 - 11 % [facility] Eosinophils Percent Auto 1.2 0 - 4 % [facility] Basophils Percent Auto 0.5 0 - 2 % [facility] NRBC Pct Auto 0.0 0.0 - 0.2 /100WBC [facility] Neutrophils Absolute Auto 2.9 2.0 - 8.3 x10*3/uL [facility] Imm Gran Abs Auto 0.05(H) 0.00 - 0.03 X10*3/uL [facility] Lymphocytes Absolute Auto 2.2 1.2 - 4.9 X10*3/uL [facility] Monocytes Absolute Auto 0.6 0.1 - 1.2 X10*3/uL [facility] Eosinophils Absolute Auto 0.1 0.0 - 0.4 X10*3/uL [facility] Basophils Absolute Auto 0.0 0.0 - 0.2 X10*3/uL [facility] NRBC Abs Auto 0.000 0.0 - 0.012 X10*3/uL [facility] Blood Venous blood specimen / Unknown 02/02/2025 2:11 PM EDT 02/02/2025 4:24 PM EDT us Adelita Knutson [employer] LAB BLOOD ORDERABLES Final Resul t Performing Organization Address [facility] de Phone Number [facility] [address] [place] [phone] * (ABNORMAL) Lipid Panel, Standard (02/02/2025 2:11 PM EDT) Triglycerides 91 <150 mg/dL [facility] Comment:Desirable Triglyceri de: less than 150 mg/dLBorderline High Triglyceride 150-199 mg/dLHigh Triglyceride: 200-499 mg/dLVery High Triglyceride: greater than or equal to 5OO mg/dL Cholesterol 237(H) <200 mg/dL [facility] Comment:Desirable Cholestero l: less than 200 mg/dLBorderline High Cholesterol: 200-239 mg/dLHigh Cholesterol: greater than 239 mg/dL LDL Cholesterol Calculated 159(H) <100 mg/dL [facility] Comment:Desirable LDL: less than 100 mg/dLNear Optimal/Above Optimal LDL: 110- 129 mg/dLBorderline High LDL: 130-159 mg/dLHigh LDL: 160-189 mg/dLVery High LDL: greater than or equal to 190 mg/dL HDL Cholesterol 60 >40 mg/dL [facility] Comment:Desirable HDL: great er than 40 mg/dL Note: This HDL assay may give artificially low results in patients with liver disease. Blood Venous blood specimen / Unknown 02/02/2025 2:11 PM EDT 02/02/2025 4:27 PM EDT us Adelita Knutson NP LAB BLOOD ORDERABLES Final Resul t Performing Organization Address [facility] Co de Phone Number [facility] [address] [place] [phone] * (ABNORMAL) Comprehensive Metabolic Panel (02/02/2025 2:11 PM EDT) Sodium 138 135 - 145 mmol/L [facility] Potassium 3.9 3.3 - 5.1 mmol/L [facility] Chloride 105 96 - 108 mmol/L [facility] Carbon Dioxide 23 22 - 29 mmol/L [facility] Anion Gap 14 12 - 20 [facility] Urea Nitrogen (BUN) 18(H) 9 - 16 mg/dL [facility] Creatinine, Serum 0.91 0.5 - 1.4 mg/dL [facility] Estimated Glomerular Filt Rate >60 [facility] Comment:Chronic Kidney Disea se: Estimated GFR < 60 mL/min/[id number] Kidney Disease: Estimated GFR < 15 mL/min/1.73m2 Glucose 107 60 - 115 mg/dL [facility] Calcium 9.0 8.4 - 10.2 mg/dL [facility] Bilirubin, Total 0.2 0.0 - 1.0 mg/dL [facility] Aspartate Amino Transferase 26 5 - 37 U/L [facility] Alanine Aminotransferase 38 0 - 40 U/L [facility] Total Protein 7.1 6.5 - 8.0 g/dL [facility] Albumin Level 4.4 3.5 - 5.0 g/dL [facility] Alkaline Phosphatase 92 39 - 117 U/L [facility] Blood Venous blood specimen / Unknown 02/02/2025 2:11 PM EDT 02/02/2025 4:27 PM EDT us Adelita Knutson NP LAB BLOOD ORDERABLES Final Resul t [facility] [address] [place] [phone] from Last 3 Months Insurance [facility] Care Teams Clockmaker Relationship Specialty Start Date End Date Viktor Kelley MD [address] [place] [phone] PCP - General Internal Medicine 02/11/25
== END 2025-04-08 12:08 | disposition home or self-care (01) ==
LOC: HO.HGI 11:10
PROVIDERS: PCP Internal Medicine; Visit Provider Nurse Practitioner Family
DX: Z01.818 Encounter for other preprocedural examination (principal); Z12.11 Encounter for screening for malignant neoplasm of colon; R19.7 Diarrhea, unspecified; K21.9 Gastro-esophageal reflux disease without esophagitis
CPT/HCPCS: 99204

== ENCOUNTER → 2025-04-08 11:10 | Outpatient (BNVA) | payer OTHER, SELFPAY | PROVIDERS: PCP Internal Medicine; Visit Provider Nurse Practitioner Family | DX: Z01.818 Encounter for other preprocedural examination (principal); K21.9 Gastro-esophageal reflux disease without esophagitis; R19.7 Diarrhea, unspecified; Z80.0 Family history of malignant neoplasm of digestive organs | CPT/HCPCS: 99202 ==

== ENCOUNTER 2025-05-01 10:54 | Outpatient (REF) | payer OTHER, SELFPAY ==
[2025-05-01 13:47] LABS: Iron 32 mcg/dL (45-160); Percent Iron Saturation 9 % (15-50); Total Iron Binding Capacity 375 mcg/dL (228-428); Unsaturated Iron Binding 343 ug/dL
[2025-05-01 14:25] LABS: PSA,Total (Free>4and<10) 1.19 ng/mL (0.00-4.00)
[2025-05-01 14:43] LABS: Folate 14.3 ng/mL (> or = 4.0); Vitamin B12 697 pg/mL (200-900)
[2025-05-12 14:38] LABS: Testosterone, Free 74.7 pg/mL (35.0-155.0)
== END 2025-05-01 10:55 | disposition home or self-care (01) ==
LOC: HO.HHCL 10:54
PROVIDERS: PCP Internal Medicine; Referring Provider Nurse Practitioner Family; Visit Provider Internal Medicine
DX: I10 Essential (primary) hypertension (principal); R19.7 Diarrhea, unspecified; D64.9 Anemia, unspecified; Z76.89 Persons encountering health services in other specified circumstances
CPT/HCPCS: 36415; 82306; 82607; 82746; 83036; 83540; 84153; 84402; 84403; 86140; 86364

== ENCOUNTER 2025-05-05 07:43 | Outpatient (REF) | payer OTHER, MEDICAID, SELFPAY ==
--- OUTSIDE RECORDS SUMMARY | 2025-05-01 09:30 | XMS_ITS | Encounter Summary ---
Author Organization [employer] Address [address] [place] [id number] Care Team Providers Care Apartment Coordinator Name Role Phone Raul Emerson Primary Care Provider [phone] Reason for Referral * Consultation (Routine) - Authorized Specialty Diagnoses / Procedures Referred By Christy smiley Referred To Contact Dental Coal Bagger / Dentistry Diagnoses Encounter to establish care with new doctor Raul Emerson FNP [address] [place] [address] Phone: tel: fax: Referral ID Status Reason Start Date Expiration Date Visits Requested Visits Authorized [id number] Authorized Consult and Treat 05/01/2025 05/01/2026 1 1 * Consultation (Routine) - Authorized Specialty Diagnoses / Procedures Referred By Christy smiley Referred To Contact Nutrition Diagnoses Primary hypertension Prediabetes Class 1 obesity due to excess calories without serious comorbidity with body mass index (BMI) of 31.0 to 31.9 in adult Raul Emerson FNP [address] [place] [address] Phone: tel: fax: Referral ID Status Reason Start Date Expiration Date Visits Requested Visits Authorized [id number] Authorized Consult and Treat 05/01/2025 05/01/2026 1 1 Encounter Details Date Type Department Care Team (Latest Contact Info) Description 05/01/2025 9:30 AM EST Office Visit [facility] MEDICINE [address] [place] [address] iK Raul, ANESTHESIOLOGY FACULTY [address] [place] [address] Primary hypertension (Primary Dx); Moderate mixed hyperlipidemia not requiring statin therapy; Prediabetes; Class 1 obesity due to excess calories without serious comorbidity with body mass index (BMI) of 31.0 to 31.9 in adult; Coronary artery disease due to lipid rich plaque; Chronic bilateral low back pain without sciatica; Encounter to establish care with new doctor; Newly diagnosed diabetes (HCC) Social History Tobacco Use Types Packs/Day Years Used Date Smoking Tobacco: Never Passive Smoke Exposure: Never Smokeless Tobacco: Never Alcohol Use Standard Drinks/Week Comments Never 0 (1 standard drink = 0.6 oz pur e alcohol) Alcohol Answer Date Recorded How often do you have a drink containing alcohol ? 0 05/01/2025 How many drinks containing a lcohol do you have on a typical day when you are drinking? 0 05/01/2025 How often do you have six or more drinks on one occasion? 0 05/01/2025 Depression Answer Date Recorded Patient Health Questionnaire-9 Score 0 05/01/2025 Patient Health Questionnaire-9 Score 0 05/01/2025 Last PHQ-9: Questionnaire Data Not on file 1 07/01/2024 Housing Stability Answer Date Recorded What is [...] Answer Date Recorded Patient Health Questionnaire-2 Score 0 05/01/2025 Internet Access Answer Date Recorded Internet Access Q1 No 05/01/2025 Internet Access Q2 I do not want or need it 04/18 Sex and Gender Information Value Date Recorded Sex Assigned at Male 01/09/2025 3:50 PM EDT Legal Sex Male 12:39 PM EDT Gender Identity Male 01/09/2025 3:50 PM EDT Sexual Orientation Don't know 01/09/2025 3: 51 PM EDT documented as of this encounter Last Filed Vital Signs Vital Sign Reading Time Taken Comments Blood Pressure 128/80 05/01/2025 10:27 AM EST Pulse 97 05/01/2025 9:42 AM EST Temperature 37 C (98.6 F) 05/01/2025 9:42 AM EST Respiratory Rate 16 05/01/2025 9:42 AM EST Oxygen Saturation 98% 05/01/2025 9:42 AM EST Inhaled Oxygen Concentration - - Weight 105 kg (232 lb 3.2 oz) 05/01/2025 9:42 AM EST Height 182.9 cm (6') 05/01/2025 9:42 AM EST Body Mass Index 31.49 05/01/2025 9:42 AM EST documented in this encounter Functional Status * Over the past 2 weeks, how often have you been bothered by any of the following problems? Question Answer Date of Assessment Author Patient Health Questionnaire -2 Score 0 05/01/2025 9:44 AM Taras Jara [place] * Little interest or pleasure in doing things Answer Date of Assessment Author Not at all 05/01/2025 9:44 AM Arvind Jara [place] * Feeling down, depressed, or hopeless Answer Date of Assessment Author Not at all 05/01/2025 9:44 AM Arvind Jara [place] * Trouble falling or staying asleep, or sleeping too much Answer Date of Assessment Author Not at all 05/01/2025 9:44 AM Arvind Jara [place] * Feeling tired or having little energy Answer Date of Assessment Author Not at all 05/01/2025 9:44 AM Arvind Jara MA * Poor appetite or overeating Answer Date of Assessment Author Not at all 05/01/2025 9:44 AM Arvind Jara [place] * Feeling bad about yourself - or that you are a failure or have let yourself or your family down Answer Date of Assessment Author Not at all 05/01/2025 9:44 AM Arvind Jara [place] * Trouble concentrating on things, such as reading the newspaper or watching television Answer Date of Assessment Author Not at all 05/01/2025 9:44 AM Arvind Jara [place] * Moving or speaking so slowly that other people could have noticed? Or the opposite - being so fidgety or restless that you have been moving around a lot more than usual. Answer Date of Assessment Author Not at all 05/01/2025 9:44 AM Arvind Jara MA * Thoughts that you would be better off or hurting yourself in some way Answer Date of Assessment Author Not at all 05/01/2025 9:44 AM Arvind Jara MA * Patient Health Questionnaire-9 Score Answer Date of Assessment Author 0 05/01/2025 9:44 AM Arvind Jara MA * Over the last 2 weeks, how often have you been bothered by any of the following problems? Question Answer Date of Assessment Author Feeling nervous, anxious, or on edge 0 05/01/2025 9:44 AM Taras Jara MA Not being able to stop or co ntrol worrying 0 05/01/2025 9:44 AM Taras Jara MA Worrying too much about diff erent things 0 05/01/2025 9:44 AM Taras Jara MA Trouble relaxing 0 05/01/2025 9:44 AM Taras Nava MA Being so restless that it is hard to sit still 0 05/01/2025 9:44 AM Taras Jara MA Becoming easily annoyed or irritable 0 05/01/2025 9:44 AM Taras Jara MA Feeling afraid as if somethi ng awful might happen 0 05/01/2025 9:44 AM Taras Jara MA HARRISON-7 Total Score 0 05/01/2025 9:44 AM EST Taras Gayle MA documented as of this encounter Progress Notes * KAVYA Hernandez - 05/01/2025 9:30 AM EST Subjective: Guerrero Lemus is a 55 y.o. male who presents to the office for a transfer patient visit. Previous PCP [facility]. Interim history: 03/11/25 Referral to vascular surgery for varicose veins 02/05/25 OTC: Identified Left triceps tendon rupture [Continues to do heavy lifting at work] 12/30/24 ED Left elbow & bicep pain s/p fall (also history of right shoulder surgery) X-ray: ossific fragment posterior to elbow joint in region of triceps tendon Generally feeling better 09/09/24 SOB, chest x-ray: Mild bilateral emphysematous changes 09/03/24 ECG , Normal sinus rhythm Current concerns: Hypertension Hyperlipidemia Prediabetes Chronic gastritis Guerrero Lemus, 55 years Hypertension - History of hypertension, monitoring blood pressure daily in the morning, at 11 AM, and at 4 PM - Previously taking olmesartan for 10 years, recently ran out about one week ago - Switched to valsartan, took first dose at 8:00 AM on the day prior to the encounter - Reports olmesartan works better for blood pressure control - Has used propranolol intermittently for supraventricular arrhythmia, not taken on the day of encounter - Received hydralazine in the emergency department in the past, discontinued - Family history of cardiac attack and hypertension Type 2 Diabetes Mellitus - Diagnosed with diabetes, started metformin 3 years ago - Currently taking metformin 500 mg three times daily, sometimes 1000 mg - Reports high A1c, referred to endocrinology for management - Family history of diabetes Musculoskeletal Pain - Reports bilateral knee pain, described as gonadotropin for water and inside war so hard - History of left shoulder surgery in 2014 - Reports back pain, sometimes radiating down the legs - Uses naproxen and tizanidine for pain and muscle relaxation, taken as needed - Reports jaw locking and muscle discomfort, uses tizanidine rarely Gastritis - History of acute and chronic gastritis - Reports stomach mucus and discomfort - Prefers gentle medications for digestive comfort Dental Pain - Reports pain in teeth, history of dental caries and tooth extraction - Recent episode of significant dental pain Vision Issues - Reports difficulty focusing, especially when driving - [place] [facility] [place] in January, no details of injury provided - No current employment, actively seeking work - Denies alcohol, tobacco, and drug use - Denies current sexual activity Problem List[1] Surgical History[2] Left shoulder (2013) Family History[3] Social History Living situation: by self Employment/Education: Looking for work; 2 Masters Diet/exercise: Meat, cheese, beans, fruit / walking Substance use: -alcohol Never -tobacco Never -opioids Never Sexual activity: No Partners last 12 months: 0 STI Panel: Pt does not wish these tests Mental health: Patient Health Questionnaire-9 Score: 0 (05/01/2025 9:44 AM) Patient Health Questionnaire-2 Score: 0 (05/01/2025 9:44 AM) Thoughts that you would be better off or hurting yourself in some way: Not at all (05/01/2025 9:44 AM) Allergies[4] Review of Systems Constitutional: Negative. Negative for activity change, appetite change, fatigue and fever. HENT: Negative. Negative for congestion, dental problem, ear pain, rhinorrhea, sinus pressure, sinus pain, sore throat and tinnitus. Eyes: Negative. Respiratory: Negative. Negative for cough, chest tightness, shortness of breath and wheezing. Cardiovascular: Negative for chest pain and leg swelling. Gastrointestinal: Negative for abdominal pain, blood in stool, constipation, diarrhea, nausea and vomiting. Endocrine: Negative. Negative for polydipsia, polyphagia and polyuria. Genitourinary: Negative. Negative for decreased urine volume, difficulty urinating, frequency, hematuria, testicular pain and urgency. Musculoskeletal: Positive for back pain. Negative for joint swelling and neck pain. Chronic knee pain has an appointment with orthopedics Skin: Negative. Negative for pallor and rash. Allergic/Immunologic: Negative. Neurological: Negative for dizziness, tremors, syncope, weakness and headaches. Hematological: Negative. Psychiatric/Behavioral: Negative. Negative for agitation, confusion, self- injury, sleep disturbanceand suicidal ideas. The patient is not nervous/anxious. Vitals: 05/01/25 0942 BP: (!) 140/89 BP Location: Left arm Patient Position: Sitting BP Cuff Size: Adult Pulse: 97 Resp: 16 Temp: 98.6 ??F (37 ??C) TempSrc: Oral SpO2: 98% Weight: 232 lb 3.2 oz (105 kg) Height: 6' (1.829 m) Physical Exam Constitutional: Appearance: Normal appearance. He is obese. HENT: Head: Normocephalic. Right Ear: Tympanic membrane, ear canal and external ear normal. Left Ear: Tympanic membrane, ear canal and external ear normal. Nose: Nose normal. Mouth/Throat: Mouth: Mucous membranes are moist. Pharynx: Oropharynx is clear. Eyes: Extraocular Movements: Extraocular movements intact. Pupils: Pupils are equal, round, and reactive to light. Cardiovascular: Rate and Rhythm: Normal rate and regular rhythm. Pulses: Normal pulses. Heart sounds: Normal heart sounds. No murmur heard. No gallop. Pulmonary: Effort: Pulmonary effort is normal. No respiratory distress. Breath sounds: Normal breath sounds. No stridor. No wheezing or rhonchi. Abdominal: General: Bowel sounds are normal. There is no distension. Palpations: Abdomen is soft. There is no mass. Tenderness: There is no abdominal tenderness. There is no right CVA tenderness, left CVA tendernessor guarding. Hernia: No hernia is present. Musculoskeletal: General: Normal range of motion. Cervical back: Normal range of motion and neck supple. Skin: General: Skin is warm. Capillary Refill: Capillary refill takes less than 2 seconds. Neurological: General: No focal deficit present. Mental Status: He is alert and oriented to person, place, and time. Cranial Nerves: No cranial nerve deficit. Sensory: No sensory deficit. Motor: No weakness. Psychiatric: Mood and Affect: Mood normal. Behavior: Behavior normal. Primary hypertension: - Hypertension managed with olmesartan and valsartan. Blood pressure measured at 140/89 mmHg duringencounter. Patient prefers olmesartan, reports difficulty obtaining medication, and has been alternating with valsartan. Hydralazine discontinued. - Adjust antihypertensive regimen. Recommended to avoid obtaining medications from outside the country. Continue monitoring blood pressure at home three times daily. Will review regimen at next follow-up in one month. Moderate mixed hyperlipidemia not requiring statin therapy: - Hyperlipidemia present, not currently requiring statin therapy. Prediabetes: - Prediabetes managed with metformin. Fhxrr-uk-[id number] A1c measured at 6.7%. Advised to lower A1c to 5.7%. Patient taking metformin 500 mg three times daily. - May increase metformin dosage. Recommended dietary modification and referral to polytechnic registrar. Follow-up in one month to reassess A1c. Class 1 obesity due to excess calories without serious comorbidity with BMI of 31.0 to 31.9 in adult: - Obesity present, BMI 31.0-31.9. No serious comorbidity. - Referral to polytechnic registrar for dietary counseling. Encouraged walking for exercise. Coronary artery disease due to lipid rich plaque: - Coronary artery disease present, managed with aspirin 81 mg daily per boiler fitter recommendationfor prevention of thromboembolic events. - Continue aspirin 81 mg daily. Advised to take naproxen only as needed and avoid combining with aspirin. Monitor for symptoms. Chronic bilateral low back pain without sciatica: - Chronic bilateral low back pain without sciatica. Pain managed with naproxen and tizanidine as needed. - Prescribed tizanidine 2 mg for muscle relaxation, to be used rarely and preferably at night. Advised to take naproxen only when needed and not to combine with aspirin. Encounter to establish care with new doctor: - Establishing care with new provider. - Scheduled follow-up in one month to review hypertension and diabetes management. Chronic gastritis: - Chronic gastritis reported, patient prefers medications gentle on digestive system. Dental pain: - Dental pain present, reports pain and history of caries. - Referral made to dentist. Advised to call if not contacted within one week. Dental appointment scheduled for June 04, 2025. Vision concerns: - Difficulty with focus and vision reported. - Optometry appointment scheduled for June 04, 2025. Assessment & Plan Primary hypertension Orders: Referral to Nutrition Therapy; Future olmesartan (Benicar) 40 MG tablet; Take 1 tablet (40 mg) by mouth Once per day. Moderate mixed hyperlipidemia not requiring statin therapy Prediabetes Orders: POCT Hgb A1c POCT glucose manually resulted Referral to Nutrition Therapy; Future Class 1 obesity due to excess calories without serious comorbidity with body mass index (BMI) of 31.0 to 31.9 in adult Orders: Referral to Nutrition Therapy; Future Coronary artery disease due to lipid rich plaque Orders: aspirin chewable tablet 81 mg Chronic bilateral low back pain without sciatica Orders: naproxen (Naprosyn) 500 MG tablet; Take 1 tablet (500 mg) by mouth 2 times daily. Encounter to establish care with new doctor Orders: Referral to [facility] Dental Adult; Future Vitamin D, 25-Hydroxy, Total, Immunoassay; Future Newly diagnosed diabetes (HCC) Orders: metFORMIN (Glucophage) 1000 MG tablet; Take 1 tablet (1,000 mg) by mouth with breakfast and with evening meal. Routine Screening and Health Maintenance Optometry: Yes appointment in May Dental: Yes Made referral ASCVD risk: 55 y.o. male Lab Review: labs reviewed, I note that lipids LDL result does not yet meet goal, liver functions are normal, comprehensive metabolic panel normal, Hgb 11.6, Plt normal. Routine Cancer Screening Colon CA: Appointment in June PSA: Current Medications[5] There is no immunization history on file for this patient. Patient would like to put off immunizations for a future visit. Follow up in about 4 weeks (around 05/29/2025). [facility] GREEN CHAIN OFF BEARER Attestation GREEN CHAIN OFF BEARER Resident Attestation: Patient was seen and evaluated by Raul HOFF, in collaboration with Zulay Chavez MD who has reviewed my assessment and plan. I, Zulay Chavez MD , have reviewed the resident's note and agree with the assessment &plan of care as documented above. This note was drafted using Wally (AI) technology. The patient/patient's guardian has been informed and has consented to the use of this technology: Yes [1] Patient Active Problem List Diagnosis Encounter for medical examination to establish care Primary hypertension Screening for colon cancer Epigastric pain Hypertension Family history of hypercholesterolemia Chronic pain of both knees [2] No past surgical history on file. [3] Family History Problem Relation Name Age of Onset Leukemia Mother Hypertension Father Hypertension Brother Colon cancer Mother's Sister Prostate cancer Mother's Brother [4] No Known Allergies [5] Current Outpatient Medications Medication Sig Dispense Refill lidocaine (Lidoderm) 5 % patch Apply 1 patch topically Once per day. Remove & discard patch within 12 hours or as directed by MD. 30 patch 2 metFORMIN (Glucophage) 500 MG tablet Take 1 tablet by mouth every 6 (six) hours during the day. naproxen (Naprosyn) 500 MG tablet Take 1 tablet (500 mg) by mouth 2 times daily. 60 tablet 1 propranolol (Inderal) 20 MG tablet TAKE 1 TABLET BY MOUTH EVERY DAY 90 tablet 0 tiZANidine (Zanaflex) 2 MG tablet Take 1 tablet (2 mg) by mouth every 8 (eight) hours if needed formuscle spasms (Chronic lower back pain). 30 tablet 0 valsartan (Diovan) 320 MG tablet Take 1 tablet (320 mg) by mouth Once per day. 30 tablet 1 Current Facility-Administered Medications Medication Dose Route Frequency Provider Last Rate Last Admin aspirin chewable tablet 81 mg 81 mg Oral Once KAVYA Hrenandez documented in this encounter Miscellaneous Notes * Assessment & Plan Note - KAVYA Hernandez - 05/01/2025 9:30 AM EST Associated Problem(s): Primary hypertension Orders: Referral to Nutrition Therapy; Future olmesartan (Benicar) 40 MG tablet; Take 1 tablet (40 mg) by mouth Once per day. documented in this encounter Plan of Treatment Upcoming Encounters Date Type Department Care Team (Late st Contact Info) Description 05/11/2025 1:00 PM EST Office Visit [facility] OPTOMETRY [address] [place] [address] Katie Roque, OD [address] [place] [address] 06/05/2025 10:30 AM EST Office Visit [facility] MEDICINE [address] [place] [address] Raul Emerson FNP [address] [place] [address] Scheduled Referrals Name Type Priority Associated Diagnoses Orde r Schedule Referral to Nutrition Therapy Outpatient Referral Routine Primary hypertension Prediabetes Class 1 obesity due to excess calories without serious comorbidity with body mass index (BMI) of 31.0 to 31.9 in adult Expected: 05/01/2025 (Approximate), Expires: 05/01/2026 Referral to [facility] Dental Adult Outpatient Referral Routine Encounter to establish care with new doctor Expected: 05/01/2025 (Approximate), Expires: 05/01/2026 documented as of this encounter Procedures Procedure Name Priority Date/Time Associated Diagnosis Comments VITAMIN D,25-OH,TOTAL,IA Routine 05/01/2025 11:05 AM EST Encounter to establish care with new doctor POCT GLYCATED HEMOGLOBIN, TOTAL Routine 05/01/2025 9:45 AM EST Prediabetes POCT GLUCOSE Routine 05/01/2025 9:44 AM EST Prediabetes documented in this encounter Results * Vitamin D, 25-Hydroxy, Total, Immunoassay (05/01/2025 11:05 AM EST) Vitamin D 25-OH Total 118.2 >30 ng/mL [facility] Comment: Health Based Reference Values*< 20 ng/mL [id number] ng/mL Insufficient> 30 ng/mL Sufficient*Rebeka TREADWELL. N Engl J Med. 2007;357:266-280There is no well-established upper level of normal vitamin Dlevels. Some laboratories use 50 ng/mL as an upper limit ofnormal. However, toxicity is patient-dependent and may occurat any level. Careful correlation with the patient'spresentation is necessary and, if there is concern forvitamin D toxicity, treatment should be consideredirrespective of the serum level.Care must be taken in interpreting Vitamin D results fromdifferent laboratories and methodologies. Published datademonstrated that results from patients undergoinghemodialysis may show a negative bias when tested withvarious automated 25-OH vitamin D assays when compared toLC-MS/MS.When testing samples from patients whose predominant form ofVitamin D is Vitamin D2, such as patients receiving VitaminD2 supplementation, results that are subtherapeutic shouldbe confirmed with another method such as LC-MS/MS. Blood Venous blood specimen / Unknown 05/01/2025 11:05 AM EST 05/01/2025 1:11 PM EST Result [facility] Raul Emerson ANESTHESIOLOGY FACULTY LAB BLOOD ORDERABLES Final Re sult [facility] [address] [place] [address] [phone] * (ABNORMAL) POCT Hgb A1c (05/01/2025 9:45 AM EST) Hemoglobin A1C 6.7(A) 4.0 - 5.7 % QC Media Lot # [id number] Lot# Expiration Date ,764,[id number] Blood 05/01/2025 9:45 AM EST Result [facility] Raul SCHNEIDERP POINT OF CARE TEST ENTER/EDIT ORDERABLES Final Result * (ABNORMAL) POCT glucose manually resulted (05/01/2025 9:44 AM EST) Pathologist [facility] Glucose Blood, POC 212(A) 60 - 200 mg/dL QC Media Lot # [id number] Lot# Expiration Date 992,026 Blood Capillary blood specimen / Unknown 05/01/2025 9:44 AM EST Result [facility] Raul SCHNEIDERP POINT OF CARE TEST ENTER/EDIT ORDERABLES Final Result documented in this encounter Visit Diagnoses Diagnosis Primary hypertension- Primary Unspecified essential hypertension Moderate mixed hyperlipidemia not requiring statin therapy Prediabetes Other abnormal glucose Class 1 obesity due to excess calories without serious comorbidity with body mass index (BMI) of 31.0 to 31.9 in adult Coronary artery disease due to lipid rich plaque Chronic bilateral low back pain without sciatica Encounter to establish care with new doctor Newly diagnosed diabetes (HCC) Type II or unspecified type diabetes mellitus without mention of complication, not stated as uncontrolled documented in this encounter Additional Health Concerns Assessment Noted Time PHQ-9 Depression Total Score: 0 05/01/20 25 9:44 AM EST documented as of this encounter Care Teams Apartment Coordinator Relationship Specialty Start Date End Date Raul Emerson FNP [address] [place] [address] PCP - General Family Medicine 05/01/25 documented as of this encounter
--- OUTSIDE RECORDS SUMMARY | 2025-05-06 02:19 | XMS_ITS | Encounter Summary ---
Author Organization [employer] Address [address] [place] [address] Care Team Providers Care Net Mobile Developer Name Role Phone Raul Emerson KAVYA Primary Care Provider [phone] Encounter Details Date Type Department Care Team (Latest Contact Info) Description 05/04/2025 Travel Social History Tobacco Use Types Packs/Day Years [...] PM EDT documented as of this encounter Plan of Treatment Upcoming Encounters Date Type Department Care Team (Late st Contact Info) Description 05/11/2025 1:00 PM EST Office Visit [facility] OPTOMETRY [address] [place] [address] Katie Roque, OD [address] [place] [address] 06/05/2025 10:30 AM EST Office Visit [facility] MEDICINE [address] [place] [address] Raul Emerson FNP [address] [place] [address] documented as of this encounter Visit Diagnoses Not on filedocumented in this encounter Additional Health Concerns Assessment Noted Time PHQ-9 Depression Total Score: 0 05/01/20 9:44 AM EST documented as of this encounter Care Teams Net Mobile Developer Relationship Specialty Start Date End Date Raul Emerson FNP [address] [place] [address] PCP - General Family Medicine 05/01/25 documented as of this encounter
--- OUTSIDE RECORDS SUMMARY | 2025-05-06 02:19 | XMS_ITS | Encounter Summary ---
Author Organization [employer] Address [address] [place] [address] 7 [place] [address] Care Team Providers Care Guest Experience Representative Name Role Phone Raul Emerson Primary Care Provider [phone] Encounter Details Date Type Department Care Team ([facility] st Contact Info) Description 05/04/2025 Results Follow-Up [facility] MEDICINE [address] [place] [address] Raul Emerson FNP [address] [place] [address] POCT Hgb A1c, POCT glucose manually resulted, Vitamin D, 25-Hydroxy, Total, Immunoassay Social History Tobacco Use Types Packs/Day Years [...] the past 12 months, has t he [employer], gas, oil or water company threatened to [...] PM EDT documented as of this encounter Miscellaneous Notes * Telephone Encounter - Billie Miner RN - 05/05/2025 9:56 AM EST Tc to pt to let them know per PCP Please contact Mr. Lemus and communicate the followin) Tellhim to stop taking Vitamin D supplementation for now; his Vit D levels are very high. 2) Ask him how much Vitamin D he is taking daily; and please let me know how much. 3) Let him know that the following tests were normal: CRP (indicating a lack of abnormal inflammation), B12 levels, PSA (Good level; NOT concerning for prostate cancer); standard screening again in 1 - 2 years. 4) Iron was low; I've ordered an iron supplement to be taken with vitamin C; take these together every other day. 5) I've also ordered two more lab tests: 1) a CBC w/ differential to look at his Red blood cells and a Fecal occult blood test; he'll need to stop by the lab to have these done. 6) I'd like to see him in 4weeks around mid May. Thank you, Raul . No answer, lvm to return call and ask to speak to [facility] nurses. * Telephone Encounter - Billie Miner RN - 05/05/2025 9:56 AM EST ----- Message from Raul Emerson sent at 05/04/2025 6:59 AM EST ----- Please contact Mr. Lemus and communicate the followin) Tell him to stop taking Vitamin D supplementation for now; his Vit D levels are very high. 2) Ask him how much Vitamin D he is taking daily; and please let me know how much. 3) Let him know that the following tests were normal: CRP (indicating a lack of abnormal inflammation), B12 levels, PSA (Good level; NOT concerning for prostate cancer); standard screening again in 1 - 2 years. 4) Iron was low; I've ordered an iron supplement to be taken with vitamin C; take these together every other day. 5) I've also ordered two more lab tests: 1) a CBC w/ differential to look at his Red blood cells and a Fecal occult blood test; he'll need to stop by the lab to have these done. 6) I'd like to see him in 4 weeks around may. Thank you, Raul ----- Message ----- From: Taras Gayle MA Sent: 05/01/2025 9:45 AM EST To: KAVYA Hernandez * Result Encounter Note - KAVYA Hernandez - 05/04/2025 6:59 AM EST Please contact Mr. Lemus and communicate the followin) Tell him to stop taking Vitamin D supplementation for now; his Vit D levels are very high. 2) Ask him how much Vitamin D he is taking daily; and please let me know how much. 3) Let him know that the following tests were normal: CRP (indicating a lack of abnormal inflammation), B12 levels, PSA (Good level; NOT concerning for prostate cancer); standard screening again in 1- 2 years. 4) Iron was low; I've ordered an iron supplement to be taken with vitamin C; take these together every other day. 5) I've also ordered two more lab tests: 1) a CBC w/ differential to look at his Red blood cells and a Fecal occult blood test; he'll need to stop by the lab to have these done. 6) I'd like to see him in 4 weeks around mid May. Thank you, Raul documented in this encounter Plan of Treatment Upcoming Encounters Date Type Department Care Team (Late st Contact Info) Description 05/11/2025 1:00 PM EST Office Visit [facility] OPTOMETRY [address] [place], [place] [id number] Katie Roque, OD [address] [place] [address] 06/05/2025 10:30 AM EST Office Visit [facility] MEDICINE [address] [place] [address] Raul Emerson FNP [address] [place] [address] Scheduled Orders Name Type Priority Associated Diagnoses Orde r Schedule CBC auto differential Lab Routine Encounter to establish care with new doctor Expected: 05/04/2025 (Approximate), Expires: 05/04/2026 Fecal Globin By Immunochemistry Lab Routine Encounter to establish care with new doctor Expected: 05/04/2025 (Approximate), Expires: 05/04/2026 PTH, Intact (ICMA) And Ionized Calcium Lab Routine High vitamin D level Expected: 05/04/2025 (Approximate), Expires: 05/04/2026 documented as of this encounter Visit Diagnoses Diagnosis Encounter to establish care with new doctor- Primary Low iron Unspecified iron deficiency anemia High vitamin D level Hypervitaminosis D documented in this encounter Additional Health Concerns Assessment Noted Time PHQ-9 Depression Total Score: 0 05/01/20 25 9:44 AM EST documented as of this encounter Care Teams Guest Experience Representative Relationship Specialty Start Date End Date Raul Emerson FNP [address] [place] [address] PCP - General Family Medicine 05/01/25 documented as of this encounter
--- OUTSIDE RECORDS SUMMARY | 2025-05-06 02:20 | XMS_ITS | Encounter Summary ---
Author Organization [employer] Address [address] [place] [address] 7 [place] [address] Care Team Providers Care Financial Project Manager Name Role Phone Raul Emerson Primary Care Provider [phone] Reason for Visit * Reason Onset Date Comments Med Refill 05/04/2025 Encounter Details Date Type Department Care Team ([facility] st Contact Info) Description 05/04/2025 Telephone [facility] [address] [place] [address] Raul Emerson FNP [address] [place] [address] Med Refill Social History Tobacco Use Types Packs/Day Years [...] encounter Miscellaneous Notes * Telephone Encounter - Samina Hernandez LPN - 05/04/2025 3:21 PM EST Received fax from Pharmacy, Vitamin C is not available in 100 mg comes as 250 mg 500mg documented in this encounter Plan of Treatment Upcoming Encounters Date Type Department Care Team (Late st Contact Info) Description 05/11/2025 1:00 PM EST Office Visit [facility] OPTOMETRY [address] [place] [address] Katie Roque, OD [address] [place] [address] 06/05/2025 10:30 AM EST Office Visit [facility] MEDICINE [address] [place] [address] Raul Emerson, KAVYA [address] [place] [address] documented as of this encounter Visit Diagnoses Not on filedocumented in this encounter Additional Health Concerns Assessment Noted Time PHQ-9 Depression Total Score: 0 05/01/20 9:44 AM EST documented as of this encounter Care Teams Financial Project Manager Relationship Specialty Start Date End Date Raul Emerson FNP [address] [place] [address] PCP - General Family Medicine 05/01/25 documented as of this encounter
--- OUTSIDE RECORDS SUMMARY | 2025-05-06 02:20 | XMS_ITS | Encounter Summary ---
Author Organization [employer] Address [address] [facility] 7 [place] [address] Care Team Providers Care Rn Registry Name Role Phone Raul Emerson KAVYA Primary Care Provider Encounter Details Date Type Department Care Team (Latest Contact Info) Description 05/01/2025 Travel Social History Tobacco Use Types Packs/Day [...] PM EDT documented as of this encounter Functional Status * Over the [...] Jara [place] documented as of this encounter Plan of Treatment Upcoming Encounters Date Type Department Care Team (Late st Contact Info) Description 05/11/2025 1:00 PM EST Office Visit [facility] OPTOMETRY [address] [place] [address] Katie Roque, OD [address] [place] [address] 06/05/2025 10:30 AM EST Office Visit [facility] MEDICINE [address] [place] [address] Raul Emerson FNP [address] [place] [address] documented as of this encounter Visit Diagnoses Not on filedocumented in this encounter Additional Health Concerns Assessment Noted Time PHQ-9 Depression Total Score: 0 05/01/20 9:44 AM EST documented as of this encounter Care Teams Rn Registry Relationship Specialty Start Date End Date Raul Emerson FNP [address] [place] [phone] PCP - General Family Medicine 05/01/25 documented as of this encounter
--- OUTSIDE RECORDS SUMMARY | 2025-05-06 02:22 | XMS_ITS | Clinical Summary ---
Author Organization [employer] Address [address] [place] [address] 7 [place] [address] Care Team Providers Care Material Spreader Name Role Phone Raul Emerson KAVYA Primary Care Provider [phone] Allergies No known active allergies Medications lidocaine (Lidoderm) 5 % patchIndication s:Left elbow pain Apply 1 patch topically Once per day. Remove & discard patch within 12 hours or as directed by MD. 30 patch 2 02/12/20 25 026 Active naproxen (Naprosyn) 500 MG tabletIndicatio ns:Chronic bilateral low back pain without sciatica Take 1 tablet (500 mg) by mouth 2 times daily. 60 tablet 1 5 12:10 PM EST 05/01/20 25 026 Active tiZANidine (Zanaflex) 2 MG tablet Take 1 tablet (2 mg) by mouth every 8 (eight) hours if needed for muscle spasms (Chronic lower back pain). 30 tablet 05/01/20 25 Active olmesartan (Benicar) 40 MG tabletIndicatio ns:Primary hypertension Take 1 tablet (40 mg) by mouth Once per day. 30 tablet 3 05/01/20 25 026 Active metFORMIN (Glucophage) 1000 MG tabletIndicatio ns:Newly diagnosed diabetes (HCC) Take 1 tablet (1,000 mg) by mouth with breakfast and with evening meal. 60 tablet 11 5 12:10 PM EST 05/01/20 25 026 Active ferrous sulfate, as mg of FE, (Conor-In-Veronica) 75 (15 Fe) MG/ML dropsIndication s:Low iron Take 4 mL every other day on an empty stomach; take with vitamin C. 150 mL 1 05/04/20 25 Active Ascorbic Acid (vitamin C) 100 MG tabletIndicatio ns:Low iron Take this vitamin C 1 x every other day with the iron supplement 30 tablet 1 05/04/20 25 Active propranolol (Inderal) 20 MG tablet Take 1 tablet (20 mg) by mouth Once per day. 90 tablet 01/13/20 25 025 Discontinued(R eorder (will not trigger notification to Pharmacy)) hydrALAZINE (Apresoline) 25 MG tablet Take 25 mg by mouth Once per day. 025 Discontinued(O ther) metFORMIN (Glucophage) 500 MG tablet Take 1 tablet by mouth every 6 (six) hours during the day. 01/29/20 025 Discontinued(A lternate therapy) valsartan (Diovan) 320 MG tabletIndicatio ns:Hypertension , unspecified type Take 1 tablet (320 mg) by mouth Once per day. 30 tablet 1 02/03/20 25 025 Discontinued(A lternate therapy) tiZANidine (Zanaflex) 2 MG tablet Take 1 tablet (2 mg) by mouth every 8 (eight) hours if needed for muscle spasms for up to 10 days. 30 tablet 02/12/20 25 025 Discontinued propranolol (Inderal) 20 MG tablet TAKE 1 TABLET BY MOUTH EVERY DAY 90 tablet 04/20/20 25 025 Discontinued tiZANidine (Zanaflex) 2 MG tablet TAKE 1 TABLET BY MOUTH EVERY 8 HOURS NEEDED FOR MUSCLE SPASMS FOR UP TO 10 DAYS 30 tablet 04/23/20 25 025 Discontinued(R eorder (will not trigger notification to Pharmacy)) Hospital, Clinic, or Other Facility Administered Medication Ordered Dose Route Frequency Start Date End Date Status aspirin chewable tablet 81 mgIndications:Coronary artery disease due to lipid rich plaque 81 mg PO Once 05/01/2025 Active Active Problems Problem Noted Date Diagnosed Date Chronic pain of both knees 03/11/2025 Assessment & Plan (03/11/2025 7:44 PM EDT): Will refer to ortho for evaluation Hypertension 02/02/2025 Assessment & Plan (02/02/2025 4:02 PM EDT): Pt reports usually at control with olmesartan 40 mg, propranolol LA 20 mg, recently elevated bp and with advice from seasonal tax preparer from home pt increased to BID temporarily, [...] due Primary hypertension 01/12/2025 Assessment & Plan (05/01/2025 11:50 AM EST): Orders: Referral to Nutrition Therapy; Future olmesartan (Benicar) 40 MG tablet; Take 1 tablet (40 mg) by mouth Once per day. Assessment & Plan (03/11/2025 7:43 PM EDT): Controlled, continue low sodium diet and exercise as tolerated, follow up in 4 months Assessment & Plan (01/12/2025 2:37 PM EDT): Will renew olmersartan 40mg and propanolol, continue low sodium diet and exercise as tolerated Screening for colon cancer 01/12/2025 Epigastric pain 01/12/2025 Encounters Date Type Department Care Team Description 05/04/2025 Telephone [facility] MED & PEDS [address] [place] [address] Raul Emerson FNP Med Refill 05/04/2025 Travel 05/04/2025 Results Follow-Up [facility] MEDICINE [address] [place] [address] Raul Emerson FNP POCT Hgb A1c, POCT glucose manually resulted, Vitamin D, 25-Hydroxy, Total, Immunoassay 05/01/2025 9:30 AM EST Office Visit [facility] MEDICINE [address] [place] [phone] Raul Emerson FNP Primary hypertension (Primary Dx); Moderate mixed hyperlipidemia not requiring statin therapy; Prediabetes; Class 1 obesity due to excess calories without serious comorbidity with body mass index (BMI) of 31.0 to 31.9 in adult; Coronary artery disease due to lipid rich plaque; Chronic bilateral low back pain without sciatica; Encounter to establish care with new doctor; Newly diagnosed diabetes (HCC) 05/01/2025 Travel 04/30/2025 Telephone [facility] MEDICINE [address] [place] [phone] Viktor Kelley MD Chart Prep 04/30/2025 Orders Only [facility] MED & PEDS [address] [place] [address] Viktor Kelley MD Primary hypertension (Primary Dx) 04/24/2025 Travel 04/23/2025 Travel 04/22/2025 Refill [facility] WALK-IN CENTER [address] [place] [phone] Erasmo Cee MD 04/21/[address] [address] Viktor Kelley MD Results 04/17/2025 Refill [facility] MED & PEDS [address] [place] [address] Viktor Kelley MD 03/09/2025 3:30 PM EDT Office Visit [facility] MED & PEDS [address] [place] [address] Viktor Kelley MD Primary hypertension (Primary Dx); Chronic pain of both knees; Varicose veins of bilateral lower extremities with other complications 03/09/2025 Travel 03/06/2025 Telephone [facility] MED & PEDS [address] [place] [address] Viktor Kelley MD chart prep 03/02/2025 Travel 02/12/2025 Telephone [facility] WALK-IN CENTER [address] [place] [address] Erasmo Cee MD PA 02/11/2025 4:00 PM EDT Office Visit [facility] WALK-IN CENTER [address] [place] [address] Erasmo Cee MD Left elbow pain (Primary Dx); Injury of left elbow, initial encounter 02/11/2025 Travel from Last 3 Months Family History [...] Mass Index 31.49 05/01/2025 9:42 AM EST Plan of Treatment Upcoming Encounters Date Type Department Care Team (Late st Contact Info) Description 05/11/2025 1:00 PM EST Office Visit [facility] OPTOMETRY [address] [place] [address] Katie Roque, OD [address] [place] [address] 06/05/2025 10:30 AM EST Office Visit [facility] MEDICINE [address] [place] [address] Raul Emerson FNP [address] [place] [address] Health Maintenance Due Date Last Done Comments CT Colonography 1970 Colonoscopy 1970 Colorectal Cancer Screening 1970 FIT DNA/Cologuard 1970 FIT 1970 FOBT 1970 HIV Screening 1970 Sigmoidoscopy 1970 Diabetes: Foot Exam 1980 Eye Exam 1980 Hepatitis C Screening 1988 DTaP/Tdap/Td Vaccines (1 - Tdap) 1989 Diabetes: Urine Protein Screening 1989 Hepatitis B Vaccines (1 of 3 - 19+ 3-dose series) 1989 Pneumococcal Vaccine: 50+ Years (1 of 2 - PCV) 1989 RSV Patients and Patients Aged 60 years or older (1 - Risk 50-74 years 1-dose series) 2020 Zoster Vaccines (1 of 2) 2020 COVID-19 Vaccine (1 - 2024-2 6 season) 2025 Influenza Vaccine (#1) 2025 Diabetes: Hemoglobin A1C 08/01/2025 025, 05/01/2025 Lipid Panel 02/02/2026 02/02/2025 Alcohol/Substance Use Screening 05/01/2026 05/01/2025 Depression Screening 05/01/2026 05/01/2025, 05/01/2025 Disability Screening 05/01/2026 05/01/2025 SDOH Screening 05/01/2026 05/01/2025 Tobacco Screening 05/01/2026 05/01/2025 HIB Vaccines Aged Out No longer eligi [...] Procedure Name Priority Date/Time Associated Diagnosis Comments TISSUE TRANSGLUTAMINASE AB, IGA Routine 05/01/2025 11:05 AM EST Primary hypertension VITAMIN B12/FOLATE, SERUM PANEL Routine 05/01/2025 11:05 AM EST Primary hypertension C-REACTIVE PROTEIN Routine 05/01/2025 11 :05 AM EST Primary hypertension IRON AND TOTAL IRON BINDING CAPACITY Routine 05/01/2025 11:05 AM EST Primary hypertension VITAMIN D,25-OH,TOTAL,IA Routine 025 11:05 AM EST Encounter to establish care with new doctor PSA, TOTAL WITH REFLEX TO PSA, FREE Routine 05/01/2025 11:05 AM EST Primary hypertension HEMOGLOBIN A1C Routine 05/01/2025 11:05 AM EST Primary hypertension POCT GLYCATED HEMOGLOBIN, TOTAL Routine 05/01/2025 9:45 AM EST Prediabetes POCT GLUCOSE Routine 05/01/2025 9:44 AM EST Prediabetes LIPID PANEL, STANDARD Routine 02/02/2025 2:11 PM EDT Hypertension, unspecified type from Last 3 Months or Most Recently Relevant to Health Maintenance Results * Vitamin D, 25-Hydroxy, Total, Immunoassay (05/01/2025 11:05 AM EST) Vitamin D 25-OH Total 118.2 >30 ng/mL [facility] Comment: Health Based Reference Values*< 20 ng/mL Zlopicnlj13-55 ng/mL Insufficient> 30 ng/mL Sufficient*Rebeka TREADWELL. N [...] 11:05 AM EST 05/01/2025 1:11 PM EST Raul Emerson [employer]OTEL SERVICES SALES REPRESENTATIVE LAB BLOOD ORDERABLES Final Re sult Performing Organization Address [facility]/ZIP Co de Phone Number [facility] [address] [place] [phone] * Vitamin B12 (Cobalamin) and Folate Panel, Serum (05/01/2025 11:05 AM EST) Vitamin B12 697 200 - 900 pg/mL [facility] Comment:NORMAL 200-900 PG/ML INDETERMINATE 160-199 PG/ML DEFICIENT < 160 PG/ML Folate 14.3 > or = 4.0 ng/mL [facility] Comment:Reference Values:> o r = 4.0 ng/mL< 4.0 ng/mL suggests folate deficiency Methotrexate, aminopterin and folinic acid(leucovorin) are chemotherapeutic agents whose molecularstructures are similar to folate; therefore, the Architectfolate assay cannot be used for patients using these drugs. 05/01/2025 11:0 5 AM EST 05/01/2025 1:11 PM EST Generic External Data Provider LAB BLOOD ORDERAB LES Final Result Performing Organization Address [facility] Co de Phone Number [facility] [address] [place] [phone] * PSA, Total With Reflex to PSA, Free (05/01/2025 11:05 AM EST) PSA,Total (Free>4and<10) 1.19 0.00 - 4.00 ng/mL [facility] Comment:A Free PSA was not p erformed: The percentage of Free PSA can be used to enhance the differentiation of prostate cancer from benign prostatic disease in subjects whose PSA levels are between 4.0 and 10.0 ng/mL. For subjects whose PSA levels are below 4.0 or above 10.0 ng/mL, the risk of prostate cancer is determined on the basis of the PSA alone. Therefore the % Free PSA is recommended only for those subjects whose PSA levels are between 4.0 and 10.0 ng/mL.PSA methodology: Rae Alinity i ChemiluminescentMicroparticle Immunoassay (CMIA) 05/01/2025 11:0 5 AM EST 05/01/2025 1:16 PM EST us Viktor Ch MD LAB BLOOD ORDERABL ES Final Result Performing Organization Address [facility] de Phone Number [facility] [address] [place] [phone] * (ABNORMAL) Iron And Total Iron Binding Capacity (05/01/2025 11:05 AM EST) Iron 32(L) 45 - 160 mcg/dL [facility] Total Iron Binding Capacity 375 228 - 428 mcg/dL [facility] Percent Iron Saturation 9(L) 15 - 50 % [facility] Unsaturated Iron Binding 343 ug/dL [facility] 05/01/2025 11:0 5 AM EST 05/01/2025 1:16 PM EST us Generic External Data Provider LAB BLOOD ORDERAB LES Final Result Performing Organization Address [facility] Co de Phone Number [facility] [address] [place] [phone] * Tissue Transglutaminase Antibody, IgA (05/01/2025 11:05 AM EST) Transglutaminase IgA <1.0 U/mL [facility] Comment:Value Interpretation ----- <15.0 Antibody not detected> or = 15.0 Antibody detectedTHIS TEST WAS PERFORMED AT:[employer] [place] [id number] NAIR MD 05/01/2025 11:0 5 AM EST 05/01/2025 1:16 PM EST Generic External Data Provider LAB BLOOD ORDERAB LES Final Result Performing Organization Address [facility] Co de Phone Number [facility] [address] [place] [phone] * C-reactive Protein (05/01/2025 11:05 AM EST) C Reactive Protein 0.20 < or = 0.50 mg/dL [facility] 05/01/2025 11:0 5 AM EST 05/01/2025 1:16 PM EST Point Blank Range External Data Provider LAB BLOOD ORDERAB LES Final Result Performing Organization Address [facility] de Phone Number [facility] [address] [place] [phone] * (ABNORMAL) Hemoglobin A1c (05/01/2025 11:05 AM EST) Hemoglobin A1c 7.0(H) <6.0 % [facility] Comment:Hemoglobin A1C Refer ence Range Adults: 4.8 - 6.0 % Non diabetic: < 6.0 % Goal: < 7.0 %Additional Action Suggested: > 8.0 %Note: Hemoglobin A1c results are invalid for patients with abnormal amounts of HbF. Blood transfusions may impact the HbA1c concentration in the patient sample. Estimated Average Glucose 154 mg/dL [facility] Comment:eAG = Estimated ave rage glucose which is %A1C expressed asaverage glucose, using the formula of the [id number] Glucose study (ADAG), Diabetes Care, Vol.31,#8,2007 Blood Venous blood specimen / Unknown 05/01/2025 11:05 AM EST 05/01/2025 1:11 PM EST Viktor Ch MD LAB BLOOD ORDERABL ES Final Result [facility] [address] [place] [phone] * (ABNORMAL) POCT Hgb A1c (05/01/2025 9:45 AM EST) Hemoglobin A1C 6.7(A) 4.0 - 5.7 % QC Media Lot # [id number] Lot# Expiration Date 762 Blood 05/01/2025 9:45 AM EST Raul Emerson [facility] POINT OF CARE TEST ENTER/EDIT ORDERABLES Final Result * (ABNORMAL) POCT glucose manually resulted (05/01/2025 9:44 AM EST) Glucose Blood, POC 212(A) 60 - 200 mg/dL QC Media Lot # [id number] Lot# Expiration Date 06, Blood Capillary blood specimen / Unknown 05/01/2025 9:44 AM EST Raul Emerson [facility] POINT OF CARE TEST ENTER/EDIT ORDERABLES Final Result * (ABNORMAL) Lipid Panel, Standard (02/02/2025 2:11 PM EDT) Triglycerides 91 <150 mg/dL [facility] Comment:Desirable Triglyceri de: less than 150 mg/dLBorderline High Triglyceride 150-199 mg/dLHigh Triglyceride: 200-499 mg/dLVery High Triglyceride: greater than or equal to 5OO mg/dL Cholesterol 237(H) <200 mg/dL [facility] Comment:Desirable Cholestero l: less than 200 mg/dLBorderline High Cholesterol: 200-239 mg/dLHigh Cholesterol: greater than 239 mg/dL LDL Cholesterol Calculated 159(H) <100 mg/dL [facility] Comment:Desirable LDL: less than 100 mg/dLNear Optimal/Above Optimal LDL: 110- 129 mg/dLBorderline High LDL: 130-159 mg/dLHigh LDL: 160-189 mg/dLVery High LDL: greater than or equal to 190 mg/dL HDL Cholesterol 60 >40 mg/dL [facility] Comment:Desirable HDL: great er than 40 mg/dL Note: This HDL assay may give artificially low results in patients with liver disease. Blood Venous blood specimen / Unknown 02/02/2025 2:11 PM EDT 02/02/2025 4:27 PM EDT us Adelita Knutson SENIOR QC TECHNICIAN LAB BLOOD ORDERABLES Final Resul t [facility] [address] [place] [phone] from Last 3 Months or Most Recently Relevant to Health Maintenance Insurance [facility] Care Teams Material Spreader Relationship Specialty Start Date End Date Raul Emerson FNP [address] [place] [phone] PCP - General Family Medicine 05/01/25
== END 2025-05-05 07:44 | disposition home or self-care (01) ==
LOC: HO.HOSX 07:43
PROVIDERS: Visit Provider Physician Assistant
DX: I83.11 Varicose veins of right lower extremity with inflammation (principal)
CPT/HCPCS: 99202

== ENCOUNTER 2025-05-05 13:37 | Outpatient (AMB) | payer OTHER, SELFPAY ==
--- NOTE | 2025-05-05 13:39 | A.OFFVIS_ITS ---
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 Wears compression stocking and elevates when possible. 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 He reports a long history of leg symptoms, including heaviness and edema at the ankles, which began approximately 20 years ago. His symptoms are exacerbated by prolonged standing for 2-3 hours without a break. A Doppler ultrasound performed approximately 10 years ago reportedly showed deep venous reflux described as borderline and incompetent iliac vein valves. His prior treatment regimen included Hesperidin (diosmin), vitamin C, vitamin E, low-dose aspirin for hypertension, and compression socks. The patient reports that the edema has increased over time, and he has used compression stockings for the last 2 years. 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 His work history includes physically demanding jobs that have contributed to his symptoms. It has been affecting there daily activities including doing physically demanding work. It is noted more so in right leg. Patient denies any previous venous surgery or injections. Patient denies any history of DVT/ PE. Patient denies any history of phlebitis. Trial of compression includes - [id number] They now present for vascular evaluation regarding their varicose veins. 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 Review of Systems Const Reports as per HPI ENT Reports no additional complaints Card Denies chest pain, Denies chest pain at rest and Denies chest pain with activity Resp Denies chest congestion and Denies cough GI Reports no additional complaints Musc Details: pain over varicosities, aching of lower extremities, swelling, cramping, heaviness and tiredness, itching Denies abnormal gait Skin/Breast Reports pruritus and Denies wounds Neuro Reports no additional complaints and Denies abnormal gait Psych Denies no additional complaints Physical Exam Vital Signs: BMI result Body Mass Index 30.6 Const General: cooperative, healthy appearing and comfortable Orientation/consciousness: oriented to person, oriented to place and oriented to time Neck Carotids: no bruits Chest Chest palpation & inspection: normal inspection of the chest and normal palpation of entire chest wall Resp Effort & Inspection: normal respiratory effort and able to speak in complete sentences Cardio Rate: regular rate Heart sounds: S1 normal heart sound present and S2 normal heart sound present Peripheral pulses: Peripheral pulses 2+ throughout GI Inspection: Yes normal to inspection Skin Other: +2 edema, multiple spider telangiectasias CEAP Classification C4 - skin color changes Ep - Etiology Primary As - superficial veins P - reflux General skin exam: dry skin Neuro General: oriented to person, oriented to place and oriented to time Extrem Right lower extremity: full ROM, normal capillary refill and edema Left lower extremity: full ROM, normal capillary refill and edema Psych Mental Status: mental status grossly normal Assessment & Plan Assessment & Plan (1) Varicose veins of right lower extremity with inflammation: Code(s): I83.11 - Varicose veins of right lower extremity with inflammation Category: Medical Plan: In short, the patient has evidence of venous insufficiency. I have discussed the pathophysiology with the patient. In addition I have provided informational material regarding venous disease to the patient. We have discussed conservative measures including compression, elevation, and exercise. I have also provided a handout regarding appropriate use of compression stockings and where to purchase good compression stockings as well. I have taken the liberty of ordering venous insufficiency testing with the patient. They will follow up with me after testing. The patient had an opportunity to ask questions regarding the treatment plan. All questions were answered. Imaging studies, laboratory studies and physical exam results were discussed and reviewed in detail. No major barriers to understanding were identified. The patient expressed understanding and agreement with the above treatment plan. The patient is aware they should contact our office by phone for worsening of the current condition or the appearance of new symptoms. Thank you for allowing me to participate in the vascular care of this patient. If you have any questions or concerns regarding the treatment for the above condition please do not hesitate to contact me. The office telephone contact is [phone]. This note is constructed using voice recognition software. While every effort has been made to ensure accuracy, insulation blanket maker errors may have been included. Thank you for allowing me to participate in the care of your patient. Yours sincerely, Dharmesh Hills MD, FACS, R.P.V.I. Orders: Orders US venous duplex LE Today I83.11 - Varicose veins of right lower extremity with inflammation Coding Level of Care Code New Pt Level 4 (85176) Diagnoses Varicose veins of right lower extremity with inflammation I83.11
[2025-05-05 13:44] VITALS: BMI 30.6
== END 2025-05-05 14:24 | disposition home or self-care (01) ==
LOC: HO.HVS 13:37
PROVIDERS: PCP Internal Medicine; Visit Provider Surgery Vascular Surgery
DX: I83.11 Varicose veins of right lower extremity with inflammation (principal)
CPT/HCPCS: 99204

== ENCOUNTER 2025-05-11 14:04 | Outpatient (REF) | payer OTHER, SELFPAY ==
--- NOTE | ~2025-05-11 | XR_ITS ---
EXAMINATION: X-ray bilateral knees CLINICAL INFORMATION: Pain COMPARISON: None TECHNIQUE: Right knee 3 views. Left knee 4 views. FINDINGS: Right knee: Mild medial compartment arthritis. Marginal spurring in the lateral compartment. Mild genu varus. Patellofemoral arthritis seen on the lateral view, limited evaluation. No visible acute fracture or dislocation. Possible small effusion. Left knee: Mild medial compartment arthritis. There appears to be undulation of the lateral aspect of the tibial articular surface, which may be degenerative. Mild lateral compartment arthritis. Patellofemoral arthritis on the lateral view, suboptimally evaluated. No visible acute fracture or dislocation. Small effusion. XR/XR knee LT 3V IMPRESSION: Right knee: Tricompartment arthritis. Small effusion. Left knee: Tricompartment arthritis. Apparent undulation/bony depression of the medial aspect of the tibial plateau, could be degenerative. Small effusion. Electronically signed by: Kenyon Frye MD 05/11/2025 03:16 PM [facility]
--- NOTE | ~2025-05-11 | XR_ITS ---
EXAMINATION: X-ray bilateral knees CLINICAL INFORMATION: Pain COMPARISON: None TECHNIQUE: Right knee 3 views. Left knee 4 views. FINDINGS: Right knee: Mild medial compartment arthritis. Marginal spurring in the lateral compartment. Mild genu varus. Patellofemoral arthritis seen on the lateral view, limited evaluation. No visible acute fracture or dislocation. Possible small effusion. Left knee: Mild medial compartment arthritis. There appears to be undulation of the lateral aspect of the tibial articular surface, which may be degenerative. Mild lateral compartment arthritis. Patellofemoral arthritis on the lateral view, suboptimally evaluated. No visible acute fracture or dislocation. Small effusion. XR/XR knee RT 3V IMPRESSION: Right knee: Tricompartment arthritis. Small effusion. Left knee: Tricompartment arthritis. Apparent undulation/bony depression of the medial aspect of the tibial plateau, could be degenerative. Small effusion. Electronically signed by: Kenyon Frye MD 05/11/2025 03:16 PM [facility]
--- OUTSIDE RECORDS SUMMARY | 2025-05-11 13:00 | XMS_ITS | Encounter Summary ---
Author Organization [employer] Address [address] [place] [address] [address] [place] [address] Care Team Providers Care Fitness Supervisor Name Role Phone Raul Emerson KAVYA Primary Care Provider [phone] Encounter Details Date Type Department Care Team (Latest Contact Info) Description 05/11/2025 1:00 PM EST Office Visit [facility] OPTOMETRY [address] [place] [address] TarkaKatie, OD [address] [place] [address] Type 2 diabetes mellitus 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 [...] Exam Right Left Vitreous Clear Clear Disc [place] with distinct margins, (-) NVD [place] with distinct margins, (-) NVD C/D Ratio [...] film Refraction Manifest Refraction (Subjective) Sphere Cylinder [place] Dist VA Add Right [place] -0.25 088 20/20 +2.25 Left [place] -0.50 180 20/20 +2.25 Near VA Both: 20/20 Final Rx Sphere Cylinder [place] Right +2.25 -0.25 088 Left +2.25 -0.50 [...] Description 06/05/2025 10:30 AM EST Office Visit [facility] MEDICINE [address] [place] [address] Raul Emerson FNP [address] [place] [address] 07/31/2025 11:00 AM EST Nutrition [facility] DIABETES/NUTRITION [address] [place] [address] [place] [address] documented as of this encounter Goals Goal [...] documented as of this encounter Care Teams Fitness Supervisor Relationship Specialty Start Date End Date Raul Emerson FNP [address] [place] [address] PCP - General Family Medicine 05/01/25 documented as of this encounter
--- OUTSIDE RECORDS SUMMARY | 2025-05-11 19:01 | XMS_ITS | Encounter Summary ---
Author Organization [employer] Address [address] [facility] [address] [place] [address] Care Team Providers Care Sales Facilitator Name Role Phone Raul Emerson KAVYA Primary Care Provider [phone] Encounter Details Date Type Department Care Team (Latest Contact Info) Description 05/11/2025 Travel Social History Tobacco Use Types Packs/Day [...] Description 06/05/2025 10:30 AM EST Office Visit [facility] MEDICINE [address] [place] [id number] Raul Emerson FNP [address] [place] [address] 07/31/2025 11:[address] [facility] DIABETES/NUTRITION [address] [place] [id number] [place] [address] documented as of this encounter Goals Goal [...] Roque OD documented as of this encounter Visit Diagnoses Not on filedocumented in this encounter Additional Health Concerns Active [...] documented as of this encounter Care Teams Sales Facilitator Relationship Specialty Start Date End Date Raul Emerson FNP [address] [place] [phone] PCP - General Family Medicine 05/01/25 documented as of this encounter
--- OUTSIDE RECORDS SUMMARY | 2025-05-11 19:01 | XMS_ITS | Clinical Summary ---
Author Organization [employer] Address [address] [place] [address] 7 [place] [address] Care Team Providers Care Band Builder Name Role Phone Raul Emerson KAVYA Primary Care Provider [phone] Allergies No known active allergies Medications lidocaine [...] recently elevated bp and with advice from delivery mgr from home pt increased to BID temporarily, [...] Encounters Date Type Department Care Team Description 05/11/2025 1:00 PM EST Office Visit [facility] [address] [place] [address] Katie Roque, OD 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) (Primary Dx); Dry eyes, bilateral; Presbyopia 05/11/2025 Travel 05/08/2025 Telephone [facility] [address] [place] [phone] Raul Emerson FNP Referral (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 book referral for paper core machine operator left voicemail to call back to book appointment ) 05/04/2025 Telephone [facility] [address] [place] [address] Raul Emerson FNP Med Refill 05/04/2025 Travel 05/04/2025 Results Follow-Up [facility] [address] [place] [phone] Raul Emerson FNP POCT Hgb A1c, POCT glucose manually resulted, Vitamin D, 25-Hydroxy, Total, Immunoassay 05/01/2025 9:30 AM EST Office Visit [facility] [address] [place] [address] Raul Emerson FNP Primary hypertension (Primary Dx); [...] diagnosed diabetes (HCC) 05/01/2025 Travel 04/30/2025 Telephone [facility] [address] [place] [phone] Viktor Kelley MD Chart Prep 04/30/2025 Orders Only [facility] [address] [place] [address] Viktor Kelley MD Primary hypertension (Primary Dx) 04/24/2025 Travel 04/23/2025 Travel 04/22/2025 Refill [facility] [address] [place] [phone] Erasmo Cee MD 04/21/2025 Telephone [facility] [address] [place] [address] Viktor Kelley MD Results 04/17/2025 Refill [facility] [address] [place] [address] Viktor Kelley MD 03/09/2025 3:30 PM EDT Office Visit [facility] [address] [place] [address] Viktor Kelley MD Primary hypertension (Primary Dx); Chronic pain of both knees; Varicose veins of bilateral lower extremities with other complications 03/09/2025 Travel 03/06/2025 Telephone [facility] [address] [place] [address] Viktor Kelley MD chart prep 03/02/2025 Travel 02/12/2025 Telephone [facility] [address] [place] [address] Erasmo Cee MD PA 02/11/2025 4:00 PM EDT Office Visit [facility] [address] [place] [address] Erasmo Cee MD Left elbow pain (Primary Dx); Injury of left elbow, initial encounter 02/11/2025 Travel from Last 3 Months Family History Medical History Relation Name Comments Hypertension Brother Ocular albinism Brother Hypertension Father Leukemia Mother Prostate cancer [...] Description 06/05/2025 10:30 AM EST Office Visit [facility] [address] [place] [address] Raul Emerson FNP [address] [place] [address] 07/31/2025 11:00 AM EST Nutrition [facility] [address] [place] [address] Camila Garcia, RD [address] [place] [address] Health Maintenance Due Date Last Done Comments CT Colonography 1970 Colonoscopy 1970 Colorectal Cancer Screening 1970 FIT DNA/Cologuard 1970 FIT 1970 FOBT 1970 HIV Screening 1970 Sigmoidoscopy 1970 Diabetes: Foot Exam 1980 Hepatitis C Screening 1988 DTaP/Tdap/Td [...] of 2) 2020 COVID-19 Vaccine (1 - season) 2025 Influenza Vaccine (#1) 2025 Diabetes: Hemoglobin A1C 08/01/2025 05/01/2025, 04/18 Lipid Panel 02/02/2026 02/02/2025 Alcohol/Substance Use Screening 05/01/2026 05/01/2025 Depression Screening 05/01/2026 05/01/2025, 05/01/20 25 Disability Screening 05/01/2026 05/01/2025 SDOH Screening 05/01/2026 05/01/2025 Tobacco Screening 05/11/2026 05/11/2025 Eye Exam 05/11/2027 05/11/2025, 04/19, 05/11/2025, Additional history exists HIB Vaccines Aged Out No longer eligi [...] on patient's age to complete this topic Goals Goal Patient Goal Type Associated Problems [...] chronic kidney disease No Katie Roque OD Procedures Procedure Name Priority Date/Time Associated Diagnosis Comments XR KNEE 3 VIEWS RIGHT Routine 05/11/2025 2:52 PM EST XR KNEE 3 VIEWS LEFT Routine 05/11/2025 2:50 PM EST TISSUE TRANSGLUTAMINASE AB, IGA Routine 05/01/2025 11:05 [...] Recently Relevant to Health Maintenance Results * XR Knee 3 Views Right (05/11/2025 2:52 PM EST) Anatomical Region Laterality Modality Lower Extremities, Knee Right Radiogra phic Imaging 05/11/2025 2:52 PM EST Narrative 05/11/2025 3:19 PM EST [address] [address] XRay Report Signed Patient: Guerrero Baird MR#: [id number] : 1970 Acct:[id number] Age/Sex: 55 / M ADM Date: 05/11/25 Loc: HO.HHCX Attending Dr: Bessie Alanis PA-C Ordering Physician: Bessie Alanis PA-C Date of Service: 05/11/25 Procedure(s): XR knee RT 3V Accession Number(s): [id number] cc: Raul Emerson COTTON BALER; Bessie Alanis PA-C Reason for Exam: M25.569 - Pain in unspecified knee EXAMINATION: X-ray bilateral knees CLINICAL INFORMATION: Pain COMPARISON: None TECHNIQUE: Right knee 3 views. Left knee 4 views. FINDINGS: Right knee: Mild medial compartment arthritis. Marginal spurring in the lateral compartment. Mild genu varus. Patellofemoral arthritis seen on the lateral view, limited evaluation. No visible acute fracture or dislocation. Possible small effusion. Left knee: Mild medial compartment arthritis. There appears to be undulation of the lateral aspect of the tibial articular surface, which may be degenerative. Mild lateral compartment arthritis. Patellofemoral arthritis on the lateral view, suboptimally evaluated. No visible acute fracture or dislocation. Small effusion. XR/XR knee RT 3V IMPRESSION: Right knee: Tricompartment arthritis. Small effusion. Left knee: Tricompartment arthritis. Apparent undulation/bony depression of the medial aspect of the tibial plateau, could be degenerative. Small effusion. Electronically signed by: Kenyon Frye MD 05/11/2025 03:16 PM EST Dictated By: Kenyon Frye MD Signed By: <Electronically signed by Kenyon Frye MD in OV> 05/11/25 1516 DD/ 1452 TD/TT: 05/11/25 1510 Chucking And Sawing Machine Operator: SHELBY Procedure Note Donotuseinterpreter, Image - 05/11/[address] [address] XRay Report Signed Patient: Vaishali Baird#: [id number] : 1970Acct:[id number] Age/Sex: 55 / MADM Date: 05/11/25 Loc: HO.HHCX Attending Dr: Bessie Alanis PA-C Ordering Physician: Bessie Alanis PA-C Date of Service: 05/11/25 Procedure(s): XR knee RT 3V Accession Number(s): [id number] cc: Raul Emerson COTTON BALER; Bessie Alanis PA-C Reason for Exam: M25.569 - Pain in unspecified knee EXAMINATION: X-ray bilateral knees CLINICAL INFORMATION: Pain COMPARISON: None TECHNIQUE: Right knee 3 views. Left knee 4 views. FINDINGS: Right knee: Mild medial compartment arthritis. Marginal spurring in the lateral compartment. Mild genu varus. Patellofemoral arthritis seen on the lateral view, limited evaluation. No visible acute fracture or dislocation. Possible small effusion. Left knee: Mild medial compartment arthritis. There appears to be undulation of the lateral aspect of the tibial articular surface, which may be degenerative. Mild lateral compartment arthritis. Patellofemoral arthritis on the lateral view, suboptimally evaluated. No visible acute fracture or dislocation. Small effusion. XR/XR knee RT 3V IMPRESSION: Right knee: Tricompartment arthritis. Small effusion. Left knee: Tricompartment arthritis. Apparent undulation/bony depression of the medial aspect of the tibial plateau, could be degenerative. Small effusion. Electronically signed by: Kenyon Frye MD 05/11/2025 03:16 PM EST RP Dictated By: Kenyon Frye MD Signed By: <Electronically signed by Kenyon Frye MD in OV> 05/11/25 1516 DD/ 1452 TD/TT: 05/11/25 1510 Chucking And Sawing Machine Operator: SHELBY [facility] External Provider IMG XR PROCEDURES Final Result * XR Knee 3 Views Left (05/11/2025 2:50 PM EST) Anatomical Region Laterality Modality Lower Extremities, Knee Left [facility] 05/11/2025 2:50 PM EST Narrative 05/11/2025 3:19 PM EST [address] [address] XRay Report Signed Patient: Guerrero Baird MR#: [id number] : 1970 Acct:[id number] Age/Sex: 55 / M ADM Date: 05/11/25 Loc: HO.HHCX Attending Dr: Bessie Alanis PA-C Ordering Physician: Bessie Alanis PA-C Date of Service: 05/11/25 Procedure(s): XR knee LT 3V Accession Number(s): [id number] cc: Raul Emerson COTTON BALER; Bessie Alanis PA-C Reason for Exam: M25.569 - Pain in unspecified knee EXAMINATION: X-ray bilateral knees CLINICAL INFORMATION: Pain COMPARISON: None TECHNIQUE: Right knee 3 views. Left knee 4 views. FINDINGS: Right knee: Mild medial compartment arthritis. Marginal spurring in the lateral compartment. Mild genu varus. Patellofemoral arthritis seen on the lateral view, limited evaluation. No visible acute fracture or dislocation. Possible small effusion. Left knee: Mild medial compartment arthritis. There appears to be undulation of the lateral aspect of the tibial articular surface, which may be degenerative. Mild lateral compartment arthritis. Patellofemoral arthritis on the lateral view, suboptimally evaluated. No visible acute fracture or dislocation. Small effusion. XR/XR knee LT 3V IMPRESSION: Right knee: Tricompartment arthritis. Small effusion. Left knee: Tricompartment arthritis. Apparent undulation/bony depression of the medial aspect of the tibial plateau, could be degenerative. Small effusion. Electronically signed by: Kenyon Frye MD 05/11/2025 03:16 PM EST Dictated By: Kenyon Frye MD Signed By: <Electronically signed by Kenyon Frye MD in OV> 05/11/25 1516 DD/ 1450 TD/TT: 05/11/25 1510 Chucking And Sawing Machine Operator: SHELBY Procedure Note Donotuseinterpreter, Image - 05/11/[address] [address] XRay Report Signed Patient: Vaishali Baird#: [id number] : 1970Acct:[id number] Age/Sex: 55 / MADM Date: 05/11/25 Loc: HO.HHCX Attending Dr: Bessie Alanis PA-C Ordering Physician: Bessie Alanis PA-C Date of Service: 05/11/25 Procedure(s): XR knee LT 3V Accession Number(s): [id number] cc: Raul Emerson COTTON BALER; Bessie Alanis PA-C Reason for Exam: M25.569 - Pain in unspecified knee EXAMINATION: X-ray bilateral knees CLINICAL INFORMATION: Pain COMPARISON: None TECHNIQUE: Right knee 3 views. Left knee 4 views. FINDINGS: Right knee: Mild medial compartment arthritis. Marginal spurring in the lateral compartment. Mild genu varus. Patellofemoral arthritis seen on the lateral view, limited evaluation. No visible acute fracture or dislocation. Possible small effusion. Left knee: Mild medial compartment arthritis. There appears to be undulation of the lateral aspect of the tibial articular surface, which may be degenerative. Mild lateral compartment arthritis. Patellofemoral arthritis on the lateral view, suboptimally evaluated. No visible acute fracture or dislocation. Small effusion. XR/XR knee LT 3V IMPRESSION: Right knee: Tricompartment arthritis. Small effusion. Left knee: Tricompartment arthritis. Apparent undulation/bony depression of the medial aspect of the tibial plateau, could be degenerative. Small effusion. Electronically signed by: Kenyon Frye MD 05/11/2025 03:16 PM EST Dictated By: Kenyon Frye MD Signed By: <Electronically signed by Kenyon Frye MD in OV> 05/11/25 1516 DD/ 1450 TD/TT: 05/11/25 1510 Chucking And Sawing Machine Operator: SHELBY [facility] External Provider IMG XR PROCEDURES Final Result * Vitamin D, 25-Hydroxy, Total, Immunoassay (05/01/2025 11:05 AM EST) Vitamin D 25-OH Total 118.2 >30 ng/mL [facility] Comment: Health Based Reference Values*< 20 ng/mL Lplebdomt10-59 ng/mL Insufficient> 30 ng/mL Sufficient*Rebeka TREADWELL. N [...] EST 05/01/2025 1:11 PM EST Raul Emerson MIGRATION AGENT LAB BLOOD ORDERABLES Final Re sult Performing Organization Address [facility] Co de Phone Number [facility] [address] [place] [address] [phone] * Vitamin B12 (Cobalamin) and Folate Panel, Serum (05/01/2025 11:05 AM EST) Vitamin B12 697 200 - 900 pg/mL [facility] Comment:NORMAL 200-900 PG/ML INDETERMINATE 160-199 PG/ML DEFICIENT < 160 PG/ML Folate 14.3 > or = 4.0 ng/mL [facility] Comment:Reference Values:> o r = 4.0 ng/mL< 4.0 ng/mL suggests folate deficiency Methotrexate, aminopterin and folinic acid(leucovorin) are chemotherapeutic agents whose molecularstructures are similar to folate; therefore, the Architectfolate assay cannot be used for patients using these drugs. 05/01/2025 11:0 5 AM EST 05/01/2025 1:11 PM EST Generic External Data Provider LAB BLOOD ORDERAB LES Final Result Performing Organization Address [facility] Co de Phone Number [facility] [address] [place] [phone] * PSA, Total With Reflex to PSA, Free (05/01/2025 11:05 AM EST) PSA,Total (Free>4and<10) 1.19 0.00 - 4.00 ng/mL [facility] Comment:A Free PSA was not [...] 5 AM EST 05/01/2025 1:16 PM EST Viktor Ch MD LAB BLOOD ORDERABL ES Final Result Performing Organization Address [facility] de Phone Number [facility] [address] [place] [phone] * (ABNORMAL) Iron And Total Iron Binding Capacity (05/01/2025 11:05 AM EST) Iron 32(L) 45 - 160 mcg/dL [facility] Total Iron Binding Capacity 375 228 - 428 mcg/dL [facility] Percent Iron Saturation 9(L) 15 - 50 % [facility] Unsaturated Iron Binding 343 ug/dL [facility] 05/01/2025 11:0 5 AM EST 05/01/2025 1:16 PM EST us Generic External Data Provider LAB BLOOD ORDERAB LES Final Result Performing Organization Address [facility] de Phone Number [facility] [address] [place] [phone] * Tissue Transglutaminase Antibody, IgA (05/01/2025 11:05 AM EST) Transglutaminase IgA <1.0 U/mL [facility] Comment:Value Interpretation ----- <15.0 Antibody not detected> or = 15.0 Antibody detectedTHIS TEST WAS PERFORMED AT:[facility] [place] [phone] NAIR MD 05/01/2025 11:0 5 AM EST 05/01/2025 1:16 PM EST Generic External Data Provider LAB BLOOD ORDERAB LES Final Result Performing Organization Address [facility]/ZIP Co de Phone Number [facility] [address] [place] [phone] * C-reactive Protein (05/01/2025 11:05 AM EST) C Reactive Protein 0.20 < or = 0.50 mg/dL [facility] 05/01/2025 11:0 5 AM EST 05/01/2025 1:16 PM EST Generic External Data Provider LAB BLOOD ORDERAB LES Final Result Performing Organization Address [facility] de Phone Number [facility] [address] [place] [phone] * (ABNORMAL) Hemoglobin A1c (05/01/2025 11:05 AM EST) Hemoglobin A1c 7.0(H) <6.0 % [facility] Comment:Hemoglobin A1C Refer ence Range Adults: 4.8 - 6.0 % Non diabetic: < 6.0 % Goal: < 7.0 %Additional Action Suggested: > 8.0 %Note: Hemoglobin A1c results are invalid for patients with abnormal amounts of HbF. Blood transfusions may impact the HbA1c concentration in the patient sample. Estimated Average Glucose 154 mg/dL [facility] Comment:eAG = Estimated ave rage glucose which is %A1C expressed asaverage glucose, using the formula of the A7J-VecxfloZyxduhd Glucose study (ADAG), Diabetes Care, Vol.31,#8,Jan. 2007 Blood Venous blood specimen / Unknown 05/01/2025 11:05 AM EST 05/01/2025 1:11 PM EST Viktor Ch MD LAB BLOOD ORDERABL ES Final Result [facility] [address] [place] [phone] [phone] * (ABNORMAL) POCT Hgb A1c (05/01/2025 9:45 AM EST) Hemoglobin A1C 6.7(A) 4.0 - 5.7 % QC Media Lot # [id number] Lot# Expiration Date 390,350 Blood 05/01/2025 9:45 AM EST Raul Emerson MIGRATION AGENT POINT OF CARE TEST ENTER/EDIT ORDERABLES Final Result * (ABNORMAL) POCT glucose manually resulted (05/01/2025 9:44 AM EST) Glucose Blood, POC 212(A) 60 - 200 mg/dL QC Media Lot # [id number] Lot# Expiration Date 31, Blood Capillary blood specimen / Unknown 05/01/2025 9:44 AM EST Raul SCHNEIDERP POINT OF CARE TEST ENTER/EDIT ORDERABLES Final Result * (ABNORMAL) Lipid Panel, Standard (02/02/2025 2:11 PM EDT) Triglycerides 91 <150 mg/dL [facility] Comment:Desirable Triglyceri de: less than 150 mg/dLBorderline High Triglyceride 150-199 mg/dLHigh Triglyceride: 200-499 mg/dLVery High Triglyceride: greater than or equal to 5OO mg/dL Cholesterol 237(H) <200 mg/dL [facility] Comment:Desirable Cholestero l: less than 200 mg/dLBorderline High Cholesterol: 200-239 mg/dLHigh Cholesterol: greater than 239 mg/dL LDL Cholesterol Calculated 159(H) <100 mg/dL [facility] Comment:Desirable LDL: less than 100 mg/dLNear Optimal/Above Optimal LDL: 110- 129 mg/dLBorderline High LDL: 130-159 mg/dLHigh LDL: 160-189 mg/dLVery High LDL: greater than or equal to 190 mg/dL HDL Cholesterol 60 >40 mg/dL [facility] Comment:Desirable HDL: great er than 40 mg/dL Note: This HDL assay may give artificially low results in patients with liver disease. Blood Venous blood specimen / Unknown 02/02/2025 2:11 PM EDT 02/02/2025 4:27 PM EDT us Adelita Knutson COTTON BALER LAB BLOOD ORDERABLES Final Resul t [facility] [address], [place] [phone] from Last 3 Months or Most Recently Relevant to Health Maintenance Additional Health Concerns Active Problems Noted Date Diagnosed Date Help patients manage their type 2 diabetes 05/11 Weekly blood pressure task 05/11/2025 Help patients manage their type 2 diabetes 05/11 Patient has chronic kidney disease 05/11/2025 Weekly blood pressure task 05/11/2025 Patient has chronic kidney disease 05/11/2025 Insurance [facility] Care Teams Band Builder Relationship Specialty Start Date End Date Raul Emerson FNP [address] [place] [address] PCP - General Family Medicine 05/01/25
--- OUTSIDE RECORDS SUMMARY | 2025-05-11 19:01 | XMS_ITS | Encounter Summary ---
Author Organization [employer] Address [address] [place] [address] [place] [address] Care Team Providers Care Web Worker Name Role Phone Raul Emerson Primary Care Provider [phone] Reason for Visit * Reason Onset Date Comments Referral 05/08/2025 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 odilon ruiz referral for employment appeals examiner left voicemail to call back to book appointment Encounter Details Date Type Department Care Team ([facility] st Contact Info) Description 05/08/[address] [facility] [address] [place] [address] Raul Emerson FNP [address] [place] [address] Referral (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 book referral for employment appeals examiner left voicemail to call back to book appointment ) Social History Tobacco Use Types Packs/Day Years [...] encounter Miscellaneous Notes * Telephone Encounter - Darcy Stevenson - 05/08/2025 2:28 PM EST 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 book referral for employment appeals examiner left voicemail to call back to book appointment documented in this encounter Plan of Treatment Upcoming Encounters Date Type Department Care Team (Late st Contact Info) Description 06/05/2025 10:30 AM EST Office Visit [facility] [address] [place] [phone] Raul Emerson FNP [address] [place] [address] 07/31/2025 11:[address] [facility] [address] [place] [phone] [place] [address] documented as of this encounter Visit Diagnoses Not on filedocumented in this encounter Additional Health Concerns Assessment Noted Time PHQ-9 Depression Total Score: 0 05/01/20 9:44 AM EST documented as of this encounter Care Teams Web Worker Relationship Specialty Start Date End Date Raul Emerson FNP [address] [place] [address] PCP - General Family Medicine 05/01/25 documented as of this encounter
== END 2025-05-11 14:05 | disposition home or self-care (01) ==
LOC: HO.HHCX 14:04
PROVIDERS: Visit Provider Physician Assistant
DX: M25.561 Pain in right knee (principal); M25.562 Pain in left knee
CPT/HCPCS: 73562

== ENCOUNTER → 2025-05-11 14:20 | Outpatient (BNV) | payer OTHER, SELFPAY | PROVIDERS: Visit Provider Radiology Diagnostic Ultrasound | DX: M25.561 Pain in right knee (principal); M25.562 Pain in left knee | CPT/HCPCS: 73562 ==

== ENCOUNTER 2025-05-13 10:26 | Outpatient (REF) | payer OTHER, SELFPAY ==
--- OUTSIDE RECORDS SUMMARY | 2025-05-01 09:30 | XMS_ITS | Encounter Summary ---
Author Organization [employer] Address [address] [place] [id number] Care Team Providers Care Senior Underwriting Assistant Name Role Phone Mavis Scott Primary Care Provider [phone] Reason for Referral * Consultation (Routine) - Closed Specialty Diagnoses / Procedures Referred By Christy smiley Referred To Contact Physical Therapy Diagnoses Arthritis of knee Mavis Scott FNP [address] [place] [address] Phone: tel: fax: [facility] [place] [address] [place] [address] Phone: tel: fax: Referral ID Status Reason Start Date Expiration Date V isits Requested Visits Authorized [id number] Closed Specialty Services Required 05/12/2025 05/12/2026 1 1 * Consultation (Routine) - Authorized Specialty Diagnoses / Procedures Referred By Christy smiley Referred To Contact Dental Bend Sorter / Dentistry Diagnoses Encounter to establish care with new doctor Mavis Scott FNP [address] [place] [address] Phone: tel: fax: Referral ID Status Reason Start Date Expiration Date Visits Requested Visits Authorized [id number] Authorized Consult and Treat 05/01/2025 05/01/2026 1 1 * Consultation (Routine) - Authorized Specialty Diagnoses / Procedures Referred By Christy smiley Referred To Contact Nutrition Diagnoses Primary hypertension Prediabetes Class 1 obesity due to excess calories without serious comorbidity with body mass index (BMI) of 31.0 to 31.9 in adult Mavis Scott FNP [address] [place] [address] Phone: tel: fax: Referral ID Status Reason Start Date Expiration Date Visits Requested Visits Authorized [id number] Authorized Consult and Treat 05/01/2025 05/01/2026 1 1 Encounter Details Date Type Department Care Team (Latest Contact Info) Description 05/01/2025 9:30 AM EST Office Visit [facility] MEDICINE [address] [place] [id number] Mavis Scott FNP [address] [place] [address] Primary hypertension (Primary Dx); Moderate mixed hyperlipidemia not requiring statin therapy; Prediabetes; Class 1 obesity due to excess calories without serious comorbidity with body mass index (BMI) of 31.0 to 31.9 in adult; Coronary artery disease due to lipid rich plaque; Chronic bilateral low back pain without sciatica; Encounter to establish care with new doctor; Newly diagnosed diabetes (HCC); Low iron; Arthritis of knee Social History Tobacco Use Types Packs/Day Years [...] Health Questionnaire -2 Score 0 05/01/2025 9:44 Taras Beard MA * Little interest or pleasure in doing things Answer Date of Assessment Author Not at all 05/01/2025 9:44 AM Arvind Jara MA * Feeling down, depressed, or hopeless Answer Date of Assessment Author Not at all 05/01/2025 9:44 AM Taras Jara MA * Trouble falling or staying [...] on edge 0 05/01/2025 9:44 AM Taras aJra MA Not being able to stop or co ntrol worrying 0 05/01/2025 9:44 AM Taras Jara MA Worrying too much about diff erent things 0 05/01/2025 9:44 AM Taras Jara MA Trouble relaxing 0 05/01/2025 9:44 AM Taras Nava MA Being so restless that it is hard to sit still 0 05/01/2025 9:44 AM Taars Jara MA Becoming easily annoyed or irritable 0 05/01/2025 9:44 AM Taras Jara MA Feeling afraid as if somethi ng awful might happen 0 05/01/2025 9:44 AM Taras Jara MA HARRISON-7 Total Score 0 05/01/2025 9:44 AM Taras Jara MA documented as of this encounter Progress [...] - History of left shoulder surgery in 2013 - Reports back pain, sometimes radiating down [...] when driving - Scheduled for optometry evaluation Mis - Reports fall down stairs in January, [...] therapy. Prediabetes: - Prediabetes managed with metformin. Tclpo-co-wmlk A1c measured at 6.7%. Advised to lower A1c to 5.7%. Patient taking metformin 500 mg three times daily. - May increase metformin dosage. Recommended dietary modification and referral to garbage truck driver. Follow-up in one month to reassess A1c. Class 1 obesity due to excess calories without serious comorbidity with BMI of 31.0 to 31.9 in adult: - Obesity present, BMI 31.0-31.9. No serious comorbidity. - Referral to garbage truck driver for dietary counseling. Encouraged walking for exercise. Coronary artery disease due to lipid rich plaque: - Coronary artery disease present, managed with aspirin 81 mg daily per bicycle technician recommendationfor prevention of thromboembolic events. - Continue [...] care with new doctor Orders: Referral to [facility] Dental Adult; Future Vitamin D, [...] up in about 4 weeks (around 05/29/2025). [facility] RN PATIENT SERVICES Attestation RN PATIENT SERVICES Resident Attestation: Patient was seen and evaluated by Mavis HOFF, in collaboration with Zulay Chavez MD who has reviewed my assessment and plan. I, Zulay Chavez MD , have reviewed the resident's note and agree with the assessment &plan of care as documented above. This note was drafted using Ambient (AI) technology. The patient/patient's guardian has been [...] as directed by . 30 patch 2 metFORMIN (Glucophage) 500 MG [...] 81 mg 81 mg Oral Once KAVYA Hernandez documented in this encounter Miscellaneous Notes * Assessment & Plan Note - KAVYA Hernandez - 05/01/2025 9:30 AM EST Associated Problem(s): Primary hypertension Orders: Referral to Nutrition Therapy; Future olmesartan (Benicar) 40 MG tablet; Take 1 tablet (40 mg) by mouth Once per day. * Addendum Note - KAVYA Hernandez - 05/01/2025 9:30 AM ESTAddended by: MAVIS SCOTT on: 05/12/2025 07:35 AM Modules accepted: Orders documented in this encounter Plan of Treatment Upcoming Encounters Date Type Department Care Team (Late st Contact Info) Description 06/05/2025 10:30 AM EST Office Visit [facility] MEDICINE [address] [place] [address] Mavis Scott FNP [address] [place] [address] 07/31/2025 11:00 AM EST Nutrition [facility] DIABETES/NUTRITION [address] [place] [address] [place] [address] Scheduled Orders Name Type Priority Associated Diagnoses Orde r Schedule Reticulocyte Count Lab Routine Low iron Expected: 05/12/2025, Expires: 05/12/2026 Ferritin Lab Routine Low iron Expected: 05/12/2025, Expires: 05/12/2026 Transferrin Lab Routine Low iron Expected: 05/12/2025 (Approximate), Expires: 05/12/2026 Scheduled Referrals Name Type Priority Associated Diagnoses Orde r Schedule Referral to Nutrition Therapy Outpatient Referral Routine Primary hypertension Prediabetes Class 1 obesity due to excess calories without serious comorbidity with body mass index (BMI) of 31.0 to 31.9 in adult Expected: 05/01/2025 (Approximate), Expires: 05/01/2026 Referral to [facility] Dental Adult Outpatient Referral Routine Encounter to establish care with new doctor Expected: 05/01/2025 (Approximate), Expires: 05/01/2026 Referral to Physical Therapy Outpatient Referral Routine Arthritis of knee Expected: 05/12/2025 (Approximate), Expires: 05/12/2026 documented as of this encounter Goals Goal Patient Goal Type Associated Problems Recent Progress Patient-Stated? Author Help patients manage their type 2 diabetes Care Plan Help patients manage their type 2 diabetes No Katie Roque OD Weekly blood pressure task Care Plan Weekly blood pressure task No Katie Roque OD Help patients manage their type 2 diabetes Care Plan Help patients manage their type 2 diabetes No Katie Roque OD Patient has chronic kidney disease Care Plan Patient has chronic kidney disease No Katie Roque OD Weekly blood pressure task Care Plan Weekly blood pressure task No Katie Roque OD Patient has chronic kidney disease Care Plan Patient has chronic kidney disease No Katie Roque OD documented as of this encounter Procedures Procedure [...] Vitamin D 25-OH Total 118.2 >30 ng/mL [facility] Comment: Health Based Reference Values*< 20 ng/mL [id number] ng/mL Insufficient> 30 ng/mL Sufficient*Rebeka TREADWELL. N [...] AM EST 05/01/2025 1:11 PM EST Result [facility] BLOOD ORDERABLES Final Re sult [facility] [address] [place] [phone] * (ABNORMAL) POCT Hgb A1c (05/01/2025 9:45 AM EST) Hemoglobin A1C 6.7(A) 4.0 - 5.7 % QC Media Lot # [id number] Lot# Expiration Date [id number] Blood 05/01/2025 9:45 AM EST Result [facility] Mavis [facility] POINT OF CARE TEST ENTER/EDIT ORDERABLES Final Result * (ABNORMAL) POCT glucose manually resulted (05/01/2025 9:44 AM EST) Glucose Blood, POC 212(A) 60 - 200 mg/dL QC Media Lot # [id number] Lot# Expiration Date [id number] Blood Capillary blood specimen / Unknown 05/01/2025 9:44 AM EST Result [facility] POINT OF CARE TEST ENTER/EDIT ORDERABLES Final [...] mention of complication, not stated as uncontrolled Low iron Unspecified iron deficiency anemia Arthritis of knee Unspecified arthropathy, lower leg documented in this encounter Additional Health Concerns Active Problems Noted Date Diagnosed Date Help patients manage their type 2 diabetes 05/11 Weekly blood pressure task 05/11/2025 Help patients manage their type 2 diabetes 05/11 Patient has chronic kidney disease 05/11/2025 Weekly blood pressure task 05/11/2025 Patient has chronic kidney disease 05/11/2025 Assessment Noted Time PHQ-9 Depression Total Score: 0 05/01/20 9:44 AM EST documented as of this encounter Care Teams Senior Underwriting Assistant Relationship Specialty Start Date End Date Mavis Scott FNP [address] [place] [address] PCP - General Family Medicine 05/01/25 documented as of this encounter
--- OUTSIDE RECORDS SUMMARY | 2025-05-11 13:00 | XMS_ITS | Encounter Summary ---
Author Organization [employer] Address [address] [place] [address] 7 [place] [address] Care Team Providers Care Adult Day Care Worker Name Role Phone Raul Emerson KAVYA Primary Care Provider [phone] Encounter Details Date Type Department Care Team (Latest Contact Info) Description 05/11/2025 1:00 PM EST Office Visit 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 male. HPI Patient presents for comprehensive eye exam. Patient was diagnosed with diabetes and started Metformin a few weeks ago. Patient's last A1c was 7.0% on 05/01/25. Patient reports blurry vision both eyes (OU) at near. Patient does not use any glasses Patient reports excessive tearing. He has tried using Ketotifen drops and Opcon A drops. ALESIA: 7 years ago Last edited by Katie Roque, OD on 05/11/2025 2:10 PM. Current Medications[1] Medical History[2] Surgical History[3] Family History[4] Tobacco Use: Low Risk (05/11/2025) Tobacco Smoking Tobacco Use: Never Smokeless Tobacco Use: Never Passive Exposure: Never Allergies[5] ROS Positive for: Eyes Negative for: Constitutional, Gastrointestinal, Neurological, Skin, Genitourinary, Musculoskeletal,HENT, Endocrine, Cardiovascular, Respiratory, Psychiatric, Allergic/Imm, Heme/Lymph Last edited by Katie Roque, OD on 05/11/2025 1:02 PM. Base Eye Exam Visual Acuity (Snellen - Linear) Right Left Dist sc 20/20 20/20-2 Tonometry ([facility]Care , 1:38 PM) Right Left Pressure 20 20 Pupils Pupils APD Right PERRL None Left PERRL None Visual Decker Left Right Full Full Grossly full to finger motion OD/OS Extraocular Movement Right Left Full Full Neuro/Psych Oriented x3: Yes Mood/Affect: Normal Dilation Both eyes: 1.0% tropicamide @ 1:38 PM Slit Lamp and Fundus Exam External Exam Right Left External Normal Normal Slit Lamp Exam Right Left Lids/Lashes Clean and clear Clean and clear Conjunctiva/Sclera White and quiet White and quiet Cornea Clear Clear Anterior Chamber Deep and quiet, angles open Deep and quiet, angles open Iris Flat, (-) NVI Flat, (-) NVI Lens Clear Clear Fundus Exam Right Left Vitreous Clear Clear Disc [place] with distinct margins, (-) NVD [place] with distinct margins, (-) NVD C/D Ratio Vertical 0.30 0.30 C/D Ratio Horizontal 0.30 0.30 Macula Flat with even pigmentation, (-) DME Flat with even pigmentation, (-) DME Vessels Normal course and caliber, (-) NVE Normal course and caliber, (-) NVE Periphery No holes/tears/detachments 360 No holes/tears/detachments 360 Lacrimal Exam Lacrimal OU: oily tear film, debris in tear film Refraction Manifest Refraction (Subjective) Sphere Cylinder [place] Dist VA Add Right [place] -0.25 088 20/20 +2.25 Left [place] -0.50 180 20/20 +2.25 Near VA Both: 20/20 Final Rx Sphere [place]ylinder [place] Right +2.25 -0.25 088 Left +2.25 -0.50 180 Type: Reading Expiration Date: 05/11/2027 Assessment and Plan Diagnoses and all orders for this visit: 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) - No diabetic retinopathy or diabetic macular edema both eyes (OU) - Discussed importance of tight blood glucose control, medication compliance and regular follow up with PCP. Today's exam notes will be made available for PCP to review. Dry eyes, bilateral - Oily tear film, debris in tear film both eyes (OU). Patient symptomatic for excessive tearing both eyes (OU) - Recommended use of warm compresses daily both eyes (OU). Patient given handout with instructions. - Recommended the use of artificial tears in both eyes 1gtt 2-4x/day. Patient given Refresh Andrés-3 sample Presbyopia - Dispensed updated spec Rx RTC in 1 year for comprehensive eye exam or sooner as needed Katie Roque, OD 05/11/2025, 2:14 PM [1] Current Outpatient Medications Medication Sig Dispense Refill Ascorbic Acid (vitamin C) 100 MG tablet Take this vitamin C 1 x every other day with the iron supplement 30 tablet 1 ferrous sulfate, as mg of FE, (Conor-In-Veronica) 75 (15 Fe) MG/ML drops Take 4 mL every other day on an empty stomach; take with vitamin C. 150 mL 1 lidocaine (Lidoderm) 5 % patch Apply 1 patch topically Once per day. Remove & discard patch within 12 hours or as directed by MD. 30 patch 2 metFORMIN (Glucophage) 1000 MG tablet Take 1 tablet (1,000 mg) by mouth with breakfast and with evening meal. 60 tablet 11 naproxen (Naprosyn) 500 MG tablet Take 1 tablet (500 mg) by mouth 2 times daily. 60 tablet 1 olmesartan (Benicar) 40 MG tablet Take 1 tablet (40 mg) by mouth Once per day. 30 tablet 3 tiZANidine (Zanaflex) 2 MG tablet Take 1 tablet (2 mg) by mouth every 8 (eight) hours if needed formuscle spasms (Chronic lower back pain). 30 tablet 0 Current Facility-Administered Medications Medication Dose Route Frequency Provider Last Rate Last Admin aspirin chewable tablet 81 mg 81 mg Oral Once KAVYA Hernandez [2] History reviewed. No pertinent past medical history. [3] History reviewed. No pertinent surgical history. [4] Family History Problem Relation Name Age of Onset Leukemia Mother Hypertension Father Hypertension Brother Ocular albinism Brother Colon cancer Mother's Sister Prostate cancer Mother's Brother [5] No Known Allergies documented in this encounter Plan of Treatment Upcoming Encounters Date Type Department Care Team (Late st Contact Info) Description 06/05/2025 10:30 AM EST Office Visit [facility] MEDICINE [address] [place] [address] Raul Emerson FNP [address] [place] [address] 07/31/2025 11:00 AM EST Nutrition [facility] DIABETES/NUTRITION [address] [place] [address] [place] [address] documented as of this encounter Goals Goal Patient Goal Type Associated Problems Recent Progress Patient-Stated? Author Help patients manage their type 2 diabetes Care Plan Help patients manage their type 2 diabetes No Tarka, Katie, OD Weekly blood pressure task Care Plan Weekly blood pressure task No Tarka, Katie, OD Help patients manage their type 2 diabetes Care Plan Help patients manage their type 2 diabetes No Tarka, Katie, OD Patient has chronic kidney disease Care Plan Patient has chronic kidney disease No Tarka, Katie, OD Weekly blood pressure task Care Plan Weekly blood pressure task No Tarka, Katie, OD Patient has chronic kidney disease Care Plan Patient has chronic kidney disease No Tarka, Katie, OD documented as of this encounter Visit Diagnoses Diagnosis 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)- Primary Dry eyes, bilateral Presbyopia documented in this encounter Additional Health Concerns [...] documented as of this encounter Care Teams Adult Day Care Worker Relationship Specialty Start Date End Date Raul Emerson FNP [address] [place] [address] PCP - General Family Medicine 05/01/25 documented as of this encounter
--- OUTSIDE RECORDS SUMMARY | 2025-05-13 12:25 | XMS_ITS | Encounter Summary ---
Author Organization [employer] Address [address] [place] [address] 7 [place] [address] Care Team Providers Care Residential Field Manager Name Role Phone Raul Emerson Primary Care Provider [phone] Encounter Details Date Type Department Care Team ([facility] st Contact Info) Description 05/12/2025 Results Follow-Up [facility] [address] [place] [address] Raul Emerson FNP [address] [place] [address] XR Knee 3 Views Right Social History Tobacco Use Types Packs/Day Years [...] Description 06/05/2025 10:30 AM EST Office Visit [facility] [address] [place] [phone] Raul Emerson FNP [address] [place] [address] 07/31/2025 11:00 AM EST Nutrition [facility] DIABETES/NUTRITION [address] [place] [phone] Camila Garcia, [place] [address] [place] [address] documented as of this encounter Goals Goal [...] documented as of this encounter Care Teams Residential Field Manager Relationship Specialty Start Date End Date Raul Emerson FNP [address] [place] [phone] PCP - General Family Medicine 05/01/25 documented as of this encounter
--- OUTSIDE RECORDS SUMMARY | 2025-05-13 12:25 | XMS_ITS | Encounter Summary ---
Author Organization [employer] Address [address] [place] [address] 7 [place] [address] Care Team Providers Care Textile Machine Mechanic Name Role Phone Raul Emerson Primary Care Provider [phone] Encounter Details Date Type Department Care Team ([facility] st Contact Info) Description 05/12/2025 Orders Only [facility] [address] [place] [address] Raul Emerson FNP 230 [place] [address] Low iron (Primary Dx) Social History Tobacco Use Types Packs/Day Years [...] Description 06/05/2025 10:30 AM EST Office Visit [facility] [address] [place] [address] Raul Emerson FNP [address] [place] [address] 07/31/2025 11:00 AM EST Nutrition [facility] DIABETES/NUTRITION [address] [place] [address] Camila Garcia, ANDRIA [address] [place] [address] Scheduled Orders Name Type Priority Associated Diagnoses Orde r Schedule Iron And Total Iron Binding Capacity Lab Routine Low iron Expected: 05/12/2025, Expires: 05/12/2026 documented as of this encounter [...] patients manage their type 2 diabetes No YahairamarisolKatie NISSA Patient has chronic kidney disease Care Plan Patient has chronic kidney disease No Katie Roque OD Weekly blood pressure task Care Plan Weekly blood pressure task No Jude Katie, NISSA Patient has chronic kidney disease Care Plan Patient has chronic kidney disease No Thais Roquecathryn NISSA documented as of this encounter Visit Diagnoses Diagnosis Low iron- Primary Unspecified iron deficiency anemia documented in this encounter Additional Health Concerns [...] documented as of this encounter Care Teams Textile Machine Mechanic Relationship Specialty Start Date End Date Raul Emerson FNP [address] [place] [phone] PCP - General Family Medicine 05/01/25 documented as of this encounter
--- OUTSIDE RECORDS SUMMARY | 2025-05-13 12:25 | XMS_ITS | Encounter Summary ---
Author Organization [employer] Address [address] [facility] 7 [place] [address] Care Team Providers Care Pan Reclaim Processor Name Role Phone Raul Emerson KAVYA Primary Care Provider [phone] Encounter Details Date Type Department Care Team [...] Description 06/05/2025 10:30 AM EST Office Visit [facility] MED[facility] [address] [place] [address] Raul Emerson FNP 230 [place] [address] 07/31/2025 11:00 AM EST Nutrition [facility] DIABETES/NUTRITION [address] [place] [address] 230 [place] [address] documented as of this encounter Goals Goal [...] documented as of this encounter Care Teams Pan Reclaim Processor Relationship Specialty Start Date End Date Raul Emerson FNP [address] [place] [address] PCP - General Family Medicine 05/01/25 documented as of this encounter
--- OUTSIDE RECORDS SUMMARY | 2025-05-13 12:25 | XMS_ITS | Encounter Summary ---
Author Organization [employer] Address [address] [facility] 7t [place] [address] Care Team Providers Care Paper Reel Operator Name Role Phone Raul Emerson KAVYA Primary Care Provider [phone] Reason for Visit * Reason Comments Med Refill Encounter Details Date Type Department Care Team ([facility] st Contact Info) Description 05/13/2025 Refill [facility] [address] [place] [address] Adelita Knutson NP 230 [place] [address] Hypertension, unspecified type Social History Tobacco Use Types Packs/Day Years [...] Description 06/05/2025 10:30 AM EST Office Visit [facility] [address] [place] [phone] Raul Emerson FNP 230 [place] [address] 07/31/2025 11:00 AM EST Nutrition [facility] DI[facility]ETES[facility]NUTRITION [address] [place] [address] Camila Garcia, ANDRIA 230 [place] [address] documented as of this encounter Goals Goal [...] Help patients manage their type 2 diabetes Katie Hansen OD Patient has chronic kidney disease Care Plan Patient has chronic kidney disease No Yahairamarisol Katie, NISSA Weekly blood pressure task Care Plan Weekly blood pressure task No JudeKatie NISSA Patient has chronic kidney disease Care Plan Patient has chronic kidney disease No Jude Katie, NISSA documented as of this encounter Visit Diagnoses Diagnosis Hypertension, unspecified type documented in this encounter Additional Health Concerns [...] documented as of this encounter Care Teams Paper Reel Operator Relationship Specialty Start Date End Date Raul Emerson FNP [address] [place] [address] PCP - General Family Medicine 05/01/25 documented as of this encounter
--- OUTSIDE RECORDS SUMMARY | 2025-05-13 12:26 | XMS_ITS | Encounter Summary ---
Author Organization [employer] Address [address] [place] [address] [place] [address] Care Team Providers Care Lead Cargoman Name Role Phone Raul Emerson Primary Care Provider [phone] Reason for Visit * Reason Onset Date Comments Referral 05/08/2025 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 odilon ruiz referral for historiographer left voicemail to call back to book appointment Encounter Details Date Type Department Care Team ([facility] st Contact Info) Description 05/08/2025 Telephone [facility] MEDICINE [address] [place] [address] Raul Emerson FNP [address] [place] [address] Referral (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 book referral for historiographer left voicemail to call back to book [...] EST 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 book referral for historiographer left voicemail to call back to book appointment documented in this encounter Plan of Treatment Upcoming Encounters Date Type Department Care Team (Late st Contact Info) Description 06/05/2025 10:30 AM EST Office Visit [facility] MEDICINE [address] [place] [address] Raul Emerson FNP [address] [place] [address] 07/31/2025 11:00 AM EST Nutrition [facility] DIABETES/NUTRITION [address] [place] [address] 230 [place] [address] documented as of this encounter Visit Diagnoses Not on filedocumented in this encounter Additional Health Concerns Assessment Noted Time PHQ-9 Depression Total Score: 0 05/01/20 9:44 AM EST documented as of this encounter Care Teams Lead Cargoman Relationship Specialty Start Date End Date Raul Emerson FNP [address] [place] [address] PCP - General Family Medicine 05/01/25 documented as of this encounter
--- OUTSIDE RECORDS SUMMARY | 2025-05-13 12:26 | XMS_ITS | Clinical Summary ---
Author Organization [employer] Address [address] [place] [address] 7 [place] [address] Care Team Providers Care Sweatband Cutting Machine Operator Name Role Phone Raul Emerson KAVYA Primary Care Provider [phone] Allergies No known active allergies Medications lidocaine [...] recently elevated bp and with advice from steel pan form placing supervisor from home pt increased to BID temporarily, [...] Encounters Date Type Department Care Team Description 05/13/2025 Refill [facility] [address] [place] [address] Adelita Knutson NP Hypertension, unspecified type 05/12/2025 Orders Only [facility] [address] [place] [address] Raul Emerson, AUTOMOTIVE DESIGNER Low iron (Primary Dx) 05/12/2025 Results Follow-Up [facility] [address] [place] [address] Raul Emerson FNP XR Knee 3 Views Right 05/11/2025 1:00 PM EST Office Visit [facility] OPTOMETRY [address] [place] [address] Jude, Katei, OD 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) (Primary Dx); Dry eyes, bilateral; Presbyopia 05/11/2025 Travel 05/08/2025 Telephone [facility] MED[facility] [address] [place] [address] Raul Emerson FNP Referral (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 book referral for rn anesthesiology left voicemail to call back to book appointment ) 05/04/2025 Telephone [facility] [address] [place], [place] [phone] Raul Emerson FNP Med Refill 05/04/2025 Travel 05/04/2025 Results Follow-Up [facility] [address] [place] [address] Raul Emerson FNP POCT Hgb A1c, POCT glucose manually resulted, Vitamin D, 25-Hydroxy, Total, Immunoassay 05/01/2025 9:30 AM EST Office Visit [facility] [address] [place] [address] Raul Emerson FNP Primary hypertension (Primary Dx); [...] diabetes (HCC); Low iron; Arthritis of knee 05/01/2025 Travel 04/30/2025 Telephone [facility] [address] [place] [address] Viktor Kelley MD Chart Prep 04/30/2025 Orders Only [facility] [address] [place], [place] [phone] Viktor Kelley MD Primary hypertension (Primary Dx) 04/24/2025 Travel 04/23/2025 Travel 04/22/2025 Refill [facility] [address] [place] [address] Erasmo Cee MD 04/21/2025 Telephone [facility] [address] [place] [address] Viktor Kelley MD Results 04/17/2025 Refill [facility] [address] [place] [address] Viktor Kelley MD 03/09/2025 3:30 PM EDT Office Visit [facility] [address] [place] [address] Viktor Kelley MD Primary hypertension (Primary Dx); Chronic pain of both knees; Varicose veins of bilateral lower extremities with other complications 03/09/2025 Travel 03/06/2025 Telephone [facility] [address] [place] [address] Viktor Kelley MD chart prep 03/02/2025 Travel 02/12/2025 Telephone [facility] [address] [place] [address] Erasmo Cee MD PA 02/11/2025 4:00 PM EDT Office Visit [facility] [address] [place] [address] Erasmo Cee MD Left elbow pain (Primary [...] Description 06/05/2025 10:30 AM EST Office Visit [facility] [address] [place] [address] Raul Emerson FNP [address] [place] [address] 07/31/2025 11:00 AM EST Nutrition [facility] DIABETES/NUTRITION [address] [place] [address] Camila Garcia, ANDRIA [address] [place] [address] Health Maintenance Due Date Last Done Comments [...] of 2) 2020 COVID-19 Vaccine (1 - 2024- season) 2025 Influenza Vaccine (#1) 2025 Diabetes: Hemoglobin A1C 08/01/2025 05/01/2025, 04/18 Lipid Panel 02/02/2026 02/02/2025 Alcohol/Substance Use Screening 05/01/2026 05/01/2025 Depression Screening 05/01/2026 05/01/2025, 05/01/20 Disability Screening 05/01/2026 05/01/2025 SDOH Screening 05/01/2026 [...] Encounter to establish care with new doctor TESTOSTERONE, FREE (DIALYSIS) AND TOTAL,MS Routine 05/01/2025 11:05 AM EST Primary hypertension PSA, TOTAL WITH REFLEX TO PSA, FREE [...] PM EST Narrative 05/11/2025 3:19 PM EST [address] [address] XRay Report Signed Patient: Guerrero Baird MR#: [id number] : 1970 Acct:[id number] Age/Sex: 55 / M ADM Date: 05/11/25 Loc: .HHX Attending Dr: Bessie Alanis PA-C Ordering Physician: Bessie Alanis PA-C Date of Service: 05/11/25 Procedure(s): XR knee RT 3V Accession Number(s): [id number] cc: Raul Emerson NP; Bessie Alanis PA-C Reason for Exam: M25.569 [...] by: Kenyon Frye MD 05/11/2025 03:16 PM [facility] Dictated By: Kenyon Frye MD Signed By: <Electronically signed by Kenyon Frye MD in OV> 05/11/25 1516 DD/ 1452 TD/TT: 05/11/25 1510 Room Service Server: Procedure Note Donotuseinterpreter, Image - 05/11/[address] [address] XRay Report Signed Patient: Vaishali Baird#: [id number] : 1970Acct:[id number] Age/Sex: 55 / MADM Date: 05/11/25 Loc: .HHCX Attending Dr: Bessie Alanis PA-C Ordering Physician: Bessie AlanisC Date of Service: 05/11/25 Procedure(s): XR knee RT 3V Accession Number(s): [id number] cc: Raul Emerson NP; Bessie Alanis PA-C Reason for Exam: M25.569 [...] 05/11/25 1516 DD/ 1452 TD/TT: 05/11/25 1510 Room Service Server: SHELBY [facility] External Provider IMG XR PROCEDURES Final Result * XR Knee 3 Views Left (05/11/2025 2:50 PM EST) Anatomical Region Laterality Modality Lower Extremities, Knee Left [facility] 05/11/2025 2:50 PM EST Narrative 05/11/2025 3:19 [place] [address] XRay Report Signed Patient: Guerrero Baird MR#: [id number] : 1970 Acct:[id number] Age/Sex: 55 / M ADM Date: 05/11/25 Loc: HO.HHCX Attending Dr: Bessie Alanis PA-C Ordering Physician: Bessie Alanis PA-C Date of Service: 05/11/25 Procedure(s): XR knee LT 3V Accession Number(s): [id number] cc: Raul Emerson PRECISION ASSEMBLER BENCH; Bessie Alanis PA-C Reason for Exam: M25.569 [...] by: Kenyon Frye MD 05/11/2025 03:16 PM [facility] Dictated By: Kenyon Frye MD Signed By: <Electronically signed by Kenyon Frye MD in OV> 05/11/25 1516 DD/ 1450 TD/TT: 05/11/25 1510 Room Service Server: SHELBY Procedure Note Donotuseinterpreter, Image - 05/11/[address] [address] XRay Report Signed Patient: Srinivas BairdDavid#: [id number] : 1970Acct:[id number] Age/Sex: 55 / MADM Date: 05/11/25 Loc: HO.HHCX Attending Dr: Bessie Alanis PA-C Ordering Physician: Bessie Alanis PA-C Date of Service: 05/11/25 Procedure(s): XR knee LT 3V Accession Number(s): [id number] cc: Raul Emerson PRECISION ASSEMBLER BENCH; Bessie Alanis PA-C Reason for Exam: M25.569 [...] 05/11/25 1516 DD/ 1450 TD/TT: 05/11/25 1510 Room Service Server: SHELBY [facility] External Provider IMG XR PROCEDURES Final Result * Vitamin D, 25-Hydroxy, Total, Immunoassay (05/01/2025 11:05 AM EST) Vitamin D 25-OH Total 118.2 >30 ng/mL [facility] Comment: Health Based Reference Values*< 20 ng/mL Gcpbqzlet19-63 ng/mL Insufficient> 30 ng/mL Sufficient*Rebeka TREADWELL. N [...] EST 05/01/2025 1:11 PM EST Raul Emerson [facility] LAB BLOOD ORDERABLES Final Re sult [facility] [address] [place] [phone] * Vitamin B12 (Cobalamin) and Folate Panel, Serum (05/01/2025 11:05 AM EST) Vitamin B12 697 200 - 900 pg/mL [facility] Comment:NORMAL 200-900 PG/ML INDETERMINATE 160-199 PG/ML DEFICIENT < 160 PG/ML Folate 14.3 > or = 4.0 ng/mL [facility] Comment:Reference Values:> o r = 4.0 ng/mL< 4.0 ng/mL suggests folate deficiency Methotrexate, aminopterin and folinic acid(leucovorin) are chemotherapeutic agents whose molecularstructures are similar to folate; therefore, the Architectfolate assay cannot be used for patients using these drugs. 05/01/2025 11:0 5 AM EST 05/01/2025 1:11 PM EST us Generic External Data Provider LAB BLOOD ORDERAB LES Final Result Performing Organization Address [facility] Co de Phone Number [facility] [address] [place] [phone] * PSA, Total With Reflex to PSA, Free (05/01/2025 11:05 AM EST) PSA,Total (Free>4and<10) 1.19 0.00 - 4.00 ng/mL [facility] Comment:A Free PSA was [...] ORDERABL ES Final Result Performing Organization Address [facility] Co de Phone Number [facility] [address] [place] [phone] * (ABNORMAL) Iron And Total Iron Binding Capacity (05/01/2025 11:05 AM EST) Iron 32(L) 45 - 160 mcg/dL [facility] Total Iron Binding Capacity 375 228 - 428 mcg/dL [facility] Percent Iron Saturation 9(L) 15 - 50 % [facility] Unsaturated Iron Binding 343 ug/dL [facility] 05/01/2025 11:0 5 AM EST 05/01/2025 1:16 PM EST us Generic External Data Provider LAB BLOOD ORDERAB LES Final Result Performing Organization Address [facility] Co de Phone Number [facility] [address] [place] [phone] * Tissue Transglutaminase Antibody, IgA (05/01/2025 11:05 AM EST) Transglutaminase IgA <1.0 U/mL [facility] Comment:Value Interpretatio n----- <15.0 Antibody not detected> or = 15.0 Antibody detectedTHIS TEST WAS PERFORMED AT:[employer] [place] [phone] NAIR MD 05/01/2025 11:0 5 AM EST 05/01/2025 1:16 PM EST Generic External Data Provider LAB BLOOD ORDERAB LES Final Result Performing Organization Address [facility] de Phone Number [facility] [address] [place] [phone] * Testosterone, Free (Dialysis) And Total, MS (05/01/2025 11:05 AM EST) Testosterone, Total 593 250 - 1100 ng/dL [facility] Comment:For additional infor chelsea, please refer [email or web address].[facility]/faq/[email or web address](This link is being provided for informational/educational purposes only.)This test was developed and its analytical performancecharacteristics have been determined by [employer] [place], [place]. It hasnot been cleared or approved by the U.S. Food and DrugAdministration. This assay has been validated pursuantto the CLIA regulations and is used for clinicalpurposes. Testosterone, Free 74.7 35.0 - 155.0 pg/mL [facility] Comment:This test was develo ped and its analytical performancecharacteristics have been determined by [employer] [place], [place]. It hasnot been cleared or approved by the U.S. Food and DrugAdministration. This assay has been validated pursuantto the CLIA regulations and is used for clinicalpurposes.THIS TEST WAS PERFORMED AT:[facility] [place] [phone] GARRIDO MD,PHD Blood Venous blood specimen / Unknown 05/01/2025 11:05 AM EST 05/01/2025 1:11 PM EST us Viktor Ch MD LAB BLOOD ORDERABL ES Final Result Performing Organization Address [facility]/ZIP Co de Phone Number [facility] [address] [place] [phone] * C-reactive Protein (05/01/2025 11:05 AM EST) C Reactive Protein 0.20 < or = 0.50 mg/dL [facility] 05/01/2025 11:0 5 AM EST 05/01/2025 1:16 PM EST Generic External Data Provider LAB BLOOD ORDERAB LES Final Result Performing Organization Address [facility]/ZIP Co de Phone Number [facility] [address] [place] [phone] * (ABNORMAL) Hemoglobin A1c (05/01/2025 11:05 AM EST) Hemoglobin A1c 7.0(H) <6.0 % [facility] Comment:Hemoglobin A1C Refer ence Range Adults: 4.8 - 6.0 % Non diabetic: < 6.0 % Goal: < 7.0 %Additional Action Suggested: > 8.0 %Note: Hemoglobin A1c results are invalid for patients with abnormal amounts of HbF. Blood transfusions may impact the HbA1c concentration in the patient sample. Estimated Average Glucose 154 mg/dL [facility] Comment:eAG = Estimated ave rage glucose which is %A1C expressed asaverage glucose, using the formula of the T9Y-TvpcspyLzqnytk Glucose study (ADAG), Diabetes Care, Vol.31,#8,Jan. 2007 Blood Venous blood specimen / Unknown 05/01/2025 11:05 AM EST 05/01/2025 1:11 PM EST Viktor Ch MD LAB BLOOD ORDERABL ES Final Result [facility] [address] [place] [phone] * (ABNORMAL) POCT Hgb A1c (05/01/2025 9:45 AM EST) Hemoglobin A1C 6.7(A) 4.0 - 5.7 % QC Media Lot # [id number] Lot# Expiration Date [id number] Blood 05/01/2025 9:45 AM EST Raul Emerson AUTOMOTIVE DESIGNER POINT OF CARE TEST ENTER/EDIT ORDERABLES Final Result * (ABNORMAL) POCT glucose manually resulted (05/01/2025 9:44 AM EST) Glucose Blood, POC 212(A) 60 - 200 mg/dL QC Media Lot # [id number] Lot# Expiration Date [id number] Blood Capillary blood specimen / Unknown 05/01/2025 9:44 AM EST Raul Emerson AUTOMOTIVE DESIGNER POINT OF CARE TEST ENTER/EDIT ORDERABLES Final Result * (ABNORMAL) Lipid Panel, Standard (02/02/2025 2:11 PM EDT) Triglycerides 91 <150 mg/dL [facility] Comment:Desirable Triglyceri de: less than 150 mg/dLBorderline High Triglyceride 150-199 mg/dLHigh Triglyceride: 200-499 mg/dLVery High Triglyceride: greater than or equal to 5OO mg/dL Cholesterol 237(H) <200 mg/dL [facility] Comment:Desirable Cholestero l: less than 200 mg/dLBorderline High Cholesterol: 200-239 mg/dLHigh Cholesterol: greater than 239 mg/dL LDL Cholesterol Calculated 159(H) <100 mg/dL [facility] Comment:Desirable LDL: less than 100 mg/dLNear Optimal/Above Optimal LDL: 110- 129 mg/dLBorderline High LDL: 130-159 mg/dLHigh LDL: 160-189 mg/dLVery High LDL: greater than or equal to 190 mg/dL HDL Cholesterol 60 >40 mg/dL [facility] Comment:Desirable HDL: great er than 40 mg/dL Note: This HDL assay may give artificially low results in patients with liver disease. Blood Venous blood specimen / Unknown 02/02/2025 2:11 PM EDT 02/02/2025 4:27 PM EDT Adelita Knutson NP LAB BLOOD ORDERABLES Final Resul t [facility] [address] [place] [phone] from Last 3 Months or Most Recently Relevant to Health Maintenance Additional Health Concerns Active Problems Noted Date Diagnosed Date Help patients manage their type 2 diabetes 05/11 Weekly blood pressure task 05/11/2025 Help patients manage their type 2 diabetes 05/11 Patient has chronic kidney disease 05/11/2025 Weekly blood pressure task 05/11/2025 Patient has chronic kidney disease 05/11/2025 Insurance [facility] Care Teams Sweatband Cutting Machine Operator Relationship Specialty Start Date End Date Raul Emerson FNP [address] [place] [phone] PCP - General Family Medicine 05/01/25
[2025-05-13 13:10] LABS: MANUAL DIFF FLAG NO
[2025-05-13 13:23] LABS: Hematocrit 34.8 % (42.0-52.0); Hemoglobin 10.7 g/dl (14.0-18.0); Imm Gran Abs Auto 0.10 X10*3/uL (0.00-0.03); Imm Gran Pct Auto 0.7 % (0.0-0.4); Lymphocytes Absolute Auto 2.5 X10*3/uL (1.2-4.9); Mean Corpuscular HGB Conc 30.7 g/dl (31.0-36.0); Mean Corpuscular Hemoglobin 23.4 pg (27.0-33.0); Mean Corpuscular Volume 76.0 fL (80.0-98.0); NRBC Abs Auto 0.000 X10*3/uL (0.0-0.012); NRBC Pct Auto 0.0 /100WBC (0.0-0.2); Platelet Count 509 X10*3/uL (160-400); Red Blood Count 4.58 X10*6/uL (4.60-5.80); Reticulocytes Absolute 0.080 X10*6/uL (0.026-0.095); White Blood Count 13.6 X10*3/uL (4.8-10.8)
[2025-05-13 13:56] LABS: Parathyroid Hormone Intact 24.8 pg/mL (8.7-77.1)
[2025-05-13 13:57] LABS: Iron 52 mcg/dL (45-160); Percent Iron Saturation 16 % (15-50); Total Iron Binding Capacity 334 mcg/dL (228-428); Unsaturated Iron Binding 282 ug/dL
[2025-05-13 14:13] LABS: Ferritin 22 ng/mL (20-250)
[2025-05-15 12:47] LABS: Transferrin 314 mg/dL (188-341)
== END 2025-05-13 10:27 | disposition home or self-care (01) ==
LOC: HO.HHCL 10:26
PROVIDERS: Internal Medicine
DX: E61.1 Iron deficiency (principal); Z76.89 Persons encountering health services in other specified circumstances
CPT/HCPCS: 36415; 82728; 83540; 83970; 84403; 84466; 85025; 85045

== ENCOUNTER 2025-05-21 15:04 | Outpatient (AMB) | payer OTHER, SELFPAY ==
--- OUTSIDE RECORDS SUMMARY | 2024-04-18 11:20 | XMS_ITS | Continuity of Care Document ---
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 Name Role Phone Marisela Diaz MD Unavailable Unavaila ble Allergies, Adverse Reactions, Alerts Substance Reaction Status Criticality DIPHENHYDRAMINE HCL Active No Infor mation Medications Medication Instructions Dosage Effective Dates (start - stop) Status Comments amoxicillin 875 mg-potassium clavulanate 125 mg tablet take 1 tablet by oral route every 12 hours FOR 10 DAYS - Active methylprednisolone 4 mg tablets in a dose pack take as directed - Active methylprednisolone 4 mg tablets in a dose pack take as directed - Active olmesartan 40 mg tablet take 1 tablet by oral route every day 40 MG - Active esomeprazole magnesium 40 mg capsule,delayed release take 1 capsule by oral route every day 40 MG - Active METFORMIN HCL (unknown strength) take 10 milliliter by oral route 2 times every day with meals Not Available - Active Procedures Procedure Date Flu Rapid Immunoas; Flu Rapid Immunoas; Soumya Antigen COVID19 Test Offic/outpt E&m Estab Mod-hi 2 24 Dexamethasone Na Phospate Per1 Mg Therapeutic, Prophylactic, Or Diagnostic Inj Sub Q Agt-immunassay Dir Obs; Strep 4 Offic/outpt E&m New Mod-hi 45 4 Dexamethasone Na Phospate Per1 Mg Therapeutic, Prophylactic, Or Diagnostic Inj Sub Q Results Test Name Date and Time Measure Units Reference Range Abnormal Flag Status Comments Panel Description: COVID-19 (Quidel Qu Final COVID-19 (Quidel QuickVue SARS Antigen Test) 15:30:25 negative Final Performed by:[facility] ([facility]dev) Panel Description: Flu Test Final Flu Test 15:30:24 A Negative & B Negative Final Performed by:[facility] ([facility]) Advance Directives Directive Yes / No Effective Date File Name No Information Encounters Encounter Description Practice Location Reason(s) For Visit Diagnoses Date Provider Providers Copied on Encounter Offic/outpt E&m [facility] 2 [facility], [address], [place], [place], [id number], tel:[phone] [facility] COVID-19 Evaluation (chief complaint) Contact with and (suspected) exposure to COVID-19Myalgi a, unspecified siteACUTE UPPER RESPIRATORY INFECTIONALLER GIC RHINITIS, UNSPECIFIED ALLERGIC RHINITIS TYPE 4 Joe Antonio. [address] [facility], [facility] [address], [place], [place], [id number], . tel:[phone] Referring [place]: [place], [address] [address], [place], [address]. tel:[phone] Offic/outpt E&m [facility] 45 [facility], [address], [place], [place], [id number], tel:[phone] [facility] sore throat (chief complaint) Pain in throatALLERGIC RHINITIS, UNSPECIFIED ALLERGIC RHINITIS TYPE 4 Joe Antonio. [address] [facility], [facility] [address], [place], [place], [id number], . tel:[phone] Referring [place]: [place], [address] [facility] [address], [place], [address]. tel:[phone] Family History Family Member Type Diagnosis Age At Onset No Information Payers Payer name Insurance type Covered green party ID Authoriza tijailene(s) Tee Vargas Nicole [employer] CI [id number] Social History Type Description Quantity Date Captured Comments Alcohol Use Details No Caffeine Use Details Unknown Tobacco Use Status No Information Smoking Status Never smoker Sex Male Vital Signs Date / Time: Height Weight BMI Pulse Rate Blood Pressure Temperature Respiratory Rate Body Surface Area Head Circumference Head Circ. Percentile Wt./Lee. Percentile BMI percentile Pulse Ox Inhaled Ox 5:10 PM 72.00 in 100.244 kg (221.00 lbs) 29.9 7 kg/m eter (2) 60 /min 138/84 mm[Hg] 97.50 F 18 /min 97 % Chief Complaint And Reason For Visit From encounter dated '04/18/2024 16:20'. COVID-19 Evaluation (chief complaint). Description: Onset of symptoms was 5 days ago. The duration is 5 Days. Symptoms are mild-moderate. Episodes occur constantly. The patient notes steady. Context:No known exposure to COVID-19 but lives in a community w/known transmission. The patient presents with cough, fever, nasal congestion and runny nose. The patient does not present with abdominal pain,anorexia, arthralgia, back pain, chills, diarrhea, fatigue, generalized weakness, headache, loss ofsmell, lymphadenopathy, myalgia, nausea, shortness of breath, sore throat, change in taste or vomiting. Denies aggravating factors. 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 Reason For Referral Reason For Referral No Information History Of Present Illness Encounter Date Complaint History Of Prese nt Illness COVID-19 Evaluation Onset of sym ptoms was 5 days ago. The duration is 5 Days. Symptoms are mild-moderate. Episodes occur constantly. The patient notes steady. Context: No known exposure to COVID-19 but lives in a community w/known transmission. The patient presents with cough, fever, nasal congestion and runny nose. The patient does not present with abdominal pain, anorexia, arthralgia, back pain, chills, diarrhea, fatigue, generalized weakness, headache, loss of smell, lymphadenopathy, myalgia, nausea, shortness of breath, sore throat, change in taste or vomiting. Denies aggravating factors. 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 sore throat Onset: 2 months ago. Severity level: 6. Duration: 2 Months. It occurs acutely. The problem has not changed. Context: tonsils present. Symptom is aggravated by allergens. There are no relieving factors. Associated symptoms include nasal congestion, post-nasal drainage and sore throat. Pertinent negatives include abdominal pain, chills, conjunctivitis, cough (barking), cough (productive), dehydration, diaphoresis, dyspnea, fever, halitosis, headache, hoarseness, joint pain, lymphadenopathy, malaise, not drinking, not eating, oral thrush, otalgia, rash, redness, trismus and vomiting. Additional information: PT STATES HE IS ALLERGIC TO [place]. Functional Status Date Functional Assessmen t No Information Instructions Date Instruction Additional Infor mation START STEROID DOSE P ACK TOMORROWTAKE AUGMENTIN WITH FOODCONTINUE ALLERGY MEDICATIONSNO STEROIDS WILL BE GIVEN FOR A FEW MONTHS DISCUSSED ( SIDE EFFECTS)CALL OR RETURN IF ANY CONCERNS Related to ALLERGIC RHINITIS, UNSPECIFIED ALLERGIC RHINITIS TYPE START STEROID PACK F ROM TOMORROWREST. FLUIDSCONTINUE MICHEL AND FLONASE CALL OR RETURN IF ANY CONCERNS Related to ALLERGIC RHINITIS, UNSPECIFIED ALLERGIC RHINITIS TYPE Assessments Type Assessment Date assessment Contact with and (suspected) exp osure to COVID-19 assessment Myalgia, unspecified site assessment ACUTE UPPER RESPIRATORY INFECTIO N assessment ALLERGIC RHINITIS, UNSPECIFIED A LLERGIC RHINITIS TYPE Mental Status Date Cognitive Assessment Orientation - [place] ed to time, place, person, situation. Patient Care Teams Name Effective Dates (start - stop) Status Members No Information
[2025-05-21 15:09] VITALS: BP 133/61; PULSE 92; BMI 30.2
--- NOTE | 2025-05-21 15:09 | A.OFFVIS_ITS ---
Vital Signs 05/21/25 15:09 Height 6 ft Weight 223 lb BMI 30.2 BP 133/61 Blood Pressure Location Lt brachial Position Sitting Pulse 92 Intake Visit Reasons: f/u Intake Note: Patient follow up for Acid reflux and lab results/no stool results Patient cc: abdominal pain with bloating, acid reflux, soft black stool with bad smell. 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 Instructions: Doctor's Order ketorolac 10 mg PO Q8H PRN metformin 500 mg PO BID olmesartan 40 mg PO DAILY omeprazole 40 mg PO DAILY propranolol 10 mg PO BID HPI HPI f/u: Details: Patient is a 55-year-old Faroese speaking male with PMH of diabetes, hypertension, hyperlipidemia. F/U for ongoing GI sx: previously alternating diarrhea/constipation (resolved since yesterday), upper GI reflux, intermittent epigastric pain, persistent morning nausea/vomiting Pt currently reports resolution in pattern of alternating diarrhea/constipation?now soft, daily bowel movements w/o recurrence since prior episode four days ago; recent episode of rectal bleeding occurred with soft stool and previously severe constipation. Morning nausea and vomiting persist; omeprazole provides partial relief for reflux but not heartburn. Sx exacerbated by stress; dietary modifications (inc. meat/egg intake) have seemingly improved prior low Fe and general malaise. Mild epigastric pain ongoing, responds best to sucralfate suspension in past (not currently on, requests restart). Brief fever and single-day arthralgia noted during period of loose/bloody stool; afebrile and baseline now. Did not complete stool studies yet due to timing of sx and work schedule. Denies hospitalizations/urgent care visits. Faith/cultural factors acknowledged. FHx notable for GI and other cancers on maternal side. Social hx: -denies ETOH use -denies recreational drug use -non-smoker - family hx as below -denies personal hx of CA -denies significant cardiopulmonary history -tolerated anesthesia in the past without difficulty. 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 Review of Systems Const Reports as per HPI ENT Reports as per HPI Card Reports as per HPI Resp Reports as per HPI GI Reports as per HPI Reports as per HPI Physical Exam Vital Signs: Last Vital Signs Pulse 92 05/21/25 15:09 BP 133/61 05/21/25 15:09 BMI result Body Mass Index 30.2 Const General: healthy appearing, no acute distress and well developed Nutritional Appearance: average body habitus Orientation/consciousness: patient oriented x3 HEENT Head: Yes normal to inspection, Yes normocephalic and Yes atraumatic Face and sinus: Yes normal facial exam Eyes General: appearance normal, both eyes and all related structures Neck Neck: Yes normal visual inspection Resp Effort & Inspection: normal respiratory effort, able to speak in complete sentences, no tracheal deviation and symmetric chest movement Cardio Jugular venous distension: no JVD GI Inspection: Yes normal to inspection, No distended and Yes obesity Palpation (GI): Soft to palpation, not firm, nontender and No hepatosplenomegaly present Auscultation: normal bowel sounds Neuro General: patient oriented x3 Gait exam (Neuro): Normal gait present Psych Appearance: grossly normal Mental Status: mental status grossly normal Speech and movement: Normal speech and movement present Affect: Anxious affect present Attitude: cooperative Thought process: Circumstantial thought process present Thought content: Normal thought content present Insight: Good insight present (Psych) Judgement: Good judgement present (Psych) Assessment & Plan Assessment & Plan (1) Acid reflux: Code(s): K21.9 - Gastro-esophageal reflux disease without esophagitis Category: Medical Qualifiers: Esophagitis presence: esophagitis presence not specified Qualified Code(s): K21.9 - Gastro-esophageal reflux disease without esophagitis Plan: Persistent morning N/V, reflux, burning. Partial response to omeprazole; only sucralfate provided full relief previously (not currently prescribed). Additional testing: - H. pylori breath (after 2-wk PPI hold; earliest Jun 05); r/o persistent infection/guide eradication Medications: - Stop omeprazole for 2 wks pre-H. pylori test - Rx sucralfate suspension?1g PO BID as bridge for ongoing GERD during PPI hold Lifestyle Recommendations: - Continue to avoid trigger foods (spicy, acidic, caffeinated, fried), sma ll/frequent meals, upright posture after eating, no food after 4 PM, sleep semi- upright, maintain hydration - Provided dietary/low-fiber handout and video link for lower GI prep Referrals / Coordination of Care: - None new F/U Plan: - H. pylori test after 2-wk PPI washout; discuss results and bx-proven need for therapy if positive - F/U after colonoscopy; monitor upper GI sx (2) Diarrhea: Code(s): R19.7 - Diarrhea, unspecified Category: Medical Qualifiers: Diarrhea type: unspecified type Qualified Code(s): R19.7 - Diarrhea, unspecified Plan: Alternating diarrhea/constipation resolved as of yesterday; isolated episode of rectal bleeding with soft stool, resolved; denied ongoing sx. No new constipation/diarrhea since dietary and stress modifications. Strong FHx GI CA and prior rectal bleeding necessitate colonoscopic eval. Stool studies outstanding. Additional testing: - Complete outstanding stool studies (occult blood, calprotectin) - Colonoscopy scheduled w/ [facility] prep, clear liquid diet/laxative/gas tablet protocol Medications: - OTC simethicone for bloating; caution with fiber type/amount to avoid exac erbation of bloating. Lifestyle Recommendations: - Continue diet high in meats/eggs as tolerated, avoid gas-forming veg/beans, Low FODMAP encouraged - Stress reduction techniques; rest as able, as per improvement seen after quitting work Referrals / Coordination of Care: - Scheduled endoscopy/colonoscopy per GI F/U Plan: - Review colonoscopy findings at next visit; contact sooner if recurrent bl eeding, intractable constipation/diarrhea, or new alarm sx (3) DIA (iron deficiency anemia): Code(s): D50.9 - Iron deficiency anemia, unspecified Category: Medical Qualifiers: Iron deficiency anemia type: unspecified iron deficiency Qualified Code(s): D50.9 - Iron deficiency anemia, unspecified Plan: Hgb stable at 10.7 g/dL, Fe rising (now 52); correction since dietary changes, not initiated on Fe supplements. Additional testing: - Repeat CBC/Fe studies post-colonoscopy or sooner if recurrent bleeding Medications: - None initiated at this time; withhold Fe supp pending further GI workup Lifestyle Recommendations: - Continue increased dietary Fe intake Referrals / Coordination of Care: - None required unless further anemia/bleeding F/U Plan: - Monitor CBC/Fe status at GI f/u Plan Follow up: -H.pylori visit with RN/MA -provider f/u after endoscopy Time: I spent a total of 45 minutes on the date of encounter which includes: Preparing to see the patient (reviewed previous documentation, test results and medical history) Performing a medically appropriate exam and/or evaluation Ordering medications, tests, and procedures Documenting clinical information in the health record Orders: Orders H Pylori Breath Test 05/21/25 K21.9 - Gastro-esophageal reflux disease without esophagitis Medications: New sucralfate Take 10mL up to twice daily as needed 1 g (10 mL) PO BID PRN 500 mL 2RF acid reflux bisacodyl take four tablets once day of colonoscopy prep 20 mg (4 x 5 mg) PO ONCE 4 tabs 0RF simethicone (Gas Relief (simethicone)) per colonoscopy prep instructions 500 mg (4 x 125 mg) PO ONCE 4 caps 0RF abdominal distention peg 3350-electrolytes 236-22.74-6.74 -5.86 gram until fecal effluent is clear 240 mL PO ONCE 4,000 mL 0RF sucralfate Take 10mL up to twice daily as needed 1 g (10 mL) PO BID PRN 500 mL 2RF acid reflux On Hold ferrous sulfate Hold Comment: Doctor's Order 324 mg PO DAILY 90 tabs 1RF Coding Level of Care Code Established Pt Est Pt Level 5 (02633) Patient Type Established Diagnoses Gastroesophageal reflux disease, unspecified whether esophagitis present K21.9 Esophagitis presence: esophagitis presence not specified Diarrhea, unspecified type R19.7 Diarrhea type: unspecified type Iron deficiency anemia, unspecified iron deficiency anemia type D50.9 Iron deficiency anemia type: unspecified iron deficiency
--- OUTSIDE RECORDS SUMMARY | 2025-05-21 21:19 | XMS_ITS | Encounter Summary ---
Author Organization [employer] Address [address] [facility] [address] [place] [address] Care Team Providers Care Pretzel Twisting Machine Operator Name Role Phone Raul Emerson KAVYA Primary Care Provider [phone] Reason for Visit * Reason Comments Med Refill Encounter Details Date Type Department Care Team ([facility] st Contact Info) Description 05/13/2025 Refill [facility] [address] [place] [address] Adelita Knutson NP [address] [place] [address] Hypertension, unspecified type Social History Tobacco Use [...] Description 06/05/2025 10:30 AM EST Office Visit [facility] [address] [place] [phone] Raul Emerson FNP [address] [place] [address] 07/31/2025 11:00 AM EST Nutrition [facility] [address] [place] [phone] Camila Garcia, [place] [address] [place] [address] documented as of this encounter Goals Goal [...] documented as of this encounter Care Teams Pretzel Twisting Machine Operator Relationship Specialty Start Date End Date Raul Emerson FNP [address] [place] [phone] PCP - General Family Medicine 05/01/25 documented as of this encounter
--- OUTSIDE RECORDS SUMMARY | 2025-05-21 21:19 | XMS_ITS | Encounter Summary ---
Author Organization [employer] Address [address] [place] [address] 7 [place] [address] Care Team Providers Care Insurance Verify Rep Name Role Phone Raul Emerson Primary Care Provider [phone] Encounter Details Date Type Department Care Team ([facility] st Contact Info) Description 05/12/2025 Results Follow-Up [facility] [address] [place] [address] Raul Emerson FNP [address] [place] [address] XR Knee 3 Views Right Social History [...] Description 06/05/2025 10:30 AM EST Office Visit [facility] [address] [place] [phone] Raul Emerson FNP [address] [place] [address] 07/31/2025 11:00 AM EST Nutrition [facility] [address] [place] [phone] Camila Garcia, [place] [address] [place] [address] documented as of this encounter Goals Goal [...] documented as of this encounter Care Teams Insurance Verify Rep Relationship Specialty Start Date End Date Raul Emerson FNP [address] [place] [phone] PCP - General Family Medicine 05/01/25 documented as of this encounter
--- OUTSIDE RECORDS SUMMARY | 2025-05-21 21:19 | XMS_ITS | Encounter Summary ---
Author Organization [employer] Address [address] [place] [address] 7 [place] [address] Care Team Providers Care Keying Machine Operator Name Role Phone Raul Emerson Primary Care Provider [phone] Encounter Details Date Type Department Care Team ([facility] st Contact Info) Description 05/12/2025 Orders Only [facility] [address] [place] [address] Raul Emerson FNP [address] [place] [address] Low iron (Primary Dx) Social History Tobacco [...] Description 06/05/2025 10:30 AM EST Office Visit [facility] [address] [place] [phone] Raul Emerson FNP [address] [place] [address] 07/31/2025 11:00 AM EST Nutrition [facility] [address] [place] [phone] Camila Garcia, [place] [address] [place] [address] documented as of this encounter Goals Goal [...] Procedure Name Priority Date/Time Associated Diagnosis Comments IRON AND TOTAL IRON BINDING CAPACITY Routine 05/13/2025 10:36 AM EST Low iron documented in this encounter Results * Iron And Total Iron Binding Capacity (05/13/2025 10:36 AM EST) Iron 52 45 - 160 mcg/dL [facility] Total Iron Binding Capacity 334 228 - 428 mcg/dL [facility] Percent Iron Saturation 16 15 - 50 % [facility] Unsaturated Iron Binding 282 ug/dL [facility] Blood Venous blood specimen / Unknown 05/13/2025 10:36 AM EST 05/13/2025 1:03 PM EST us Raul HOFF LAB BLOOD ORDERABLES Final Re sult [facility] [address] [place] [address] [phone] documented in this encounter Visit Diagnoses Diagnosis Low iron- [...] documented as of this encounter Care Teams Keying Machine Operator Relationship Specialty Start Date End Date Raul Emerson FNP [address] [place] [address] PCP - General Family Medicine 05/01/25 documented as of this encounter
--- OUTSIDE RECORDS SUMMARY | 2025-05-21 21:19 | XMS_ITS | Clinical Summary ---
Author Organization [employer] Address [address] [place] [address] 7 [place] [address] Care Team Providers Care Tank Car Reconditioner Name Role Phone Raul Emerson KAVYA Primary Care Provider [phone] Allergies No known active allergies Medications lidocaine [...] supplement 30 tablet 1 05/04/20 25 Active hydrALAZINE (Apresoline) 25 MG tablet Take 25 mg by mouth Once per day. Discontinued(O ther) metFORMIN (Glucophage) 500 MG tablet Take 1 tablet by mouth every 6 (six) hours during the day. 01/29/20 Discontinued(A lternate therapy) valsartan (Diovan) 320 MG tabletIndicatio ns:Hypertension , unspecified type Take 1 tablet (320 mg) by mouth Once per day. 30 tablet 1 02/03/20 Discontinued(A lternate therapy) tiZANidine (Zanaflex) 2 MG tablet Take 1 tablet (2 mg) by mouth every 8 (eight) hours if needed for muscle spasms for up to 10 days. 30 tablet 02/12/20 25 Discontinued propranolol (Inderal) 20 MG tablet TAKE 1 TABLET BY MOUTH EVERY DAY 90 tablet 04/20/20 Discontinued tiZANidine (Zanaflex) 2 MG tablet TAKE 1 TABLET BY MOUTH EVERY 8 HOURS NEEDED FOR MUSCLE SPASMS FOR UP TO 10 DAYS 30 tablet 04/23/20 025 Discontinued(R eorder (will not trigger notification [...] recently elevated bp and with advice from granite fabricator from home pt increased to BID temporarily, [...] Encounters Date Type Department Care Team Description 05/20/2025 Telephone [facility] [address] [place] [address] Raul Emerson FNP Returning Call 05/13/2025 Orders Only [facility] [address] [place] [address] Viktor Kelley MD 05/13/2025 Refill [facility] [address] [place] [address] Adelita Knutson NP Hypertension, unspecified type 05/12/2025 Orders Only [facility] [address] [place] [address] Raul Emerson FNP Low iron (Primary Dx) 05/12/2025 Results Follow-Up [facility] [address] [place] [address] Raul Emerson FNP XR Knee 3 Views Right 05/11/2025 1:00 PM EST Office Visit [facility] [address] [place] [address] Katie Roque, OD 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) (Primary Dx); Dry eyes, bilateral; Presbyopia 05/11/2025 Travel 05/08/2025 Telephone [facility] [address] [place] [address] Raul Emerson FNP Referral (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 book referral for ocean lifeguard specialist left voicemail to call back to book appointment ) 05/04/2025 Telephone [facility] [address] [place], [place] [phone] Raul Emerson FNP Med Refill 05/04/2025 Travel 05/04/2025 Results Follow-Up [facility] [address] [place] [address] Raul Emerson FNP POCT Hgb A1c, POCT glucose manually resulted, Vitamin D, 25-Hydroxy, Total, Immunoassay, Additional followed-up results: 2 05/01/2025 9:30 AM EST Office Visit [facility] [address] [place] [address] Raul Emerson FNP Primary hypertension (Primary Dx); [...] Arthritis of knee 05/01/2025 Travel 04/30/2025 Telephone [facility] [address] [place] [address] Viktor Kelley MD Chart Prep 04/30/2025 Orders Only [facility] [address] [place] [address] Viktor Kelley MD Primary hypertension (Primary Dx) 04/24/2025 Travel 04/23/2025 Travel 04/22/2025 Refill [facility] [address] [place] [address] Erasmo Cee MD 04/21/2025 Telephone [facility] [address] [place] [phone] Viktor Kelley MD Results 04/17/2025 Refill [facility] [address] [place] [address] Viktor Kelley MD 03/09/2025 3:30 PM EDT Office Visit [facility] [address] [place] [address] Viktor Kelley MD Primary hypertension (Primary Dx); Chronic pain of both knees; Varicose veins of bilateral lower extremities with other complications 03/09/2025 Travel 03/06/2025 Telephone [facility] [address] [place] [address] Viktor Kelley MD chart prep 03/02/2025 Travel from Last 3 Months Family History [...] Description 06/05/2025 10:30 AM EST Office Visit [facility] [address] [place] [address] Raul Emerson FNP [address] [place] [address] 07/31/2025 11:00 AM EST Nutrition [facility] [address] [place] [address] Camila Garcia, RD [address] [place] [address] Health Maintenance Due Date Last Done Comments [...] Care Plan Weekly blood pressure task No Thais Roqueica, OD Help patients manage their type 2 diabetes Care Plan Help patients manage their type 2 diabetes No Thais Roqueica, OD Patient has chronic kidney disease Care Plan Patient has chronic kidney disease No Thais Roqueica, OD Weekly blood pressure task Care Plan Weekly blood pressure task No TarYanick damonKatie, OD Patient has chronic kidney disease Care Plan Patient has chronic kidney disease No TarYanick damonKatie, OD Procedures Procedure Name Priority Date/Time Associated Diagnosis Comments TESTOSTERONE, TOTAL, MS Routine 05/13/20 10:36 AM EST PTH, INTACT WITHOUT CALCIUM Routine 05/13/2025 10:36 AM EST IRON AND TOTAL IRON BINDING CAPACITY Routine 05/13/2025 10:36 AM EST Low iron TRANSFERRIN Routine 05/13/2025 10:36 AM EST Low iron FERRITIN Routine 05/13/2025 10:36 AM EST Low iron RETICULOCYTE COUNT Routine 05/13/2025 10 :36 AM EST Low iron CBC WITH AUTO DIFFERENTIAL Routine 05/13/2025 10:36 AM EST Encounter to establish care with new doctor XR KNEE 3 VIEWS RIGHT Routine 05/11/2025 [...] to establish care with new doctor TESTOSTERONE, FREE, BIOAVAILABLE AND TOTAL, MALES (ADULT), IA Routine 05/01/2025 11:05 AM EST Primary hypertension [...] Recently Relevant to Health Maintenance Results * Testosterone, Total, MS (05/13/2025 10:36 AM EST) Pathologist [facility] Testosterone, Total 338 250 - 1100 ng/dL [facility] Comment:For additional infor chelsea, please refer tohttp://education.[employer]faq/[email or web address](This link is being provided for informational/educational purposes only.)This test was developed and its analytical performancecharacteristics have been determined by [employer] [place], [place]. It hasnot been cleared or approved by the U.S. Food and DrugAdministration. This assay has been validated pursuantto the CLIA regulations and is used for clinicalpurposes.THIS TEST WAS PERFORMED AT:[employer]/[id number] [place] [address]HURRERLFRED GARRIDO MD,PHD 05/13/2025 10:3 6 AM EST 05/13/2025 1:03 PM EST us Viktor Ch MD LAB BLOOD ORDERABL ES Final Result [facility] [address] [place] [phone] * (ABNORMAL) CBC auto differential (05/13/2025 10:36 AM EST) [facility] White Blood Count 13.6(H) 4.8 - 10.8 X10*3/uL [facility] Red Blood Count 4.58(L) 4.60 - 5.80 X10*6/uL [facility] Hemoglobin 10.7(L) 14.0 - 18.0 g/dl [facility] Hematocrit 34.8(L) 42.0 - 52.0 % [facility] Mean Corpuscular Volume 76.0(L) 80.0 - 98.0 fL [facility] Mean Corpuscular Hemoglobin 23.4(L) 27.0 - 33.0 pg [facility] Mean Corpuscular HGB Conc 30.7(L) 31.0 - 36.0 g/dl [facility] Red Cell Distribution Width 16.3(H) 11.0 - 16.0 % [facility] Platelet Count 509(H) 160 - 400 X10*3/uL [facility] Mean Platelet Volume 9.5 9.4 - 12.4 fL [facility] Neutrophils Percent Auto 72.9 45 - 73 % [facility] Imm Gran Pct Auto 0.7(H) 0.0 - 0.4 % [facility] Lymphocytes Percent Auto 18.4(L) 20 - 40 % [facility] Monocytes Percent Auto 7.8 2 - 11 % [facility] Eosinophils Percent Auto 0.1 0 - 4 % [facility] Basophils Percent Auto 0.1 0 - 2 % [facility] NRBC Pct Auto 0.0 0.0 - 0.2 /100WBC [facility] Neutrophils Absolute Auto 9.9(H) 2.0 - 8.3 x10*3/uL [facility] Imm Gran Abs Auto 0.10(H) 0.00 - 0.03 X10*3/uL [facility] Lymphocytes Absolute Auto 2.5 1.2 - 4.9 X10*3/uL [facility] Monocytes Absolute Auto 1.1 0.1 - 1.2 X10*3/uL [facility] Eosinophils Absolute Auto 0.0 0.0 - 0.4 X10*3/uL [facility] Basophils Absolute Auto 0.0 0.0 - 0.2 X10*3/uL [facility] NRBC Abs Auto 0.000 0.0 - 0.012 X10*3/uL [facility] Blood Venous blood specimen / Unknown 05/13/2025 10:36 AM EST 05/13/2025 1:03 PM EST Raul Emerson MAT GAUGER LAB BLOOD ORDERABLES Final Re sult [facility] [address] [place] [address] [phone] * Iron And Total Iron Binding Capacity (05/13/2025 10:36 AM EST) Only the most recent of2 resultswithin the time period is included. Iron 52 45 - 160 mcg/dL [facility] Total Iron Binding Capacity 334 228 - 428 mcg/dL [facility] Percent Iron Saturation 16 15 - 50 % [facility] Unsaturated Iron Binding 282 ug/dL [facility] Blood Venous blood specimen / Unknown 05/13/2025 10:36 AM EST 05/13/2025 1:03 PM EST Raul Emerson [facility] LAB BLOOD ORDERABLES Final Re sult Performing Organization Address [facility] de Phone Number [facility] [address] [place] [phone] * (ABNORMAL) Reticulocyte Count (05/13/2025 10:36 AM EST) [facility] Reticulocytes Absolute 0.080 0.026 - 0.095 X10*6/uL [facility] Immature Retic Fraction 19.4(H) 2.3 - 13.4 % [facility] Retic HGB Equivalent 24.7(L) 30.0 - 35.0 pg [facility] Reticulocyte Percent 1.7 0.5 - 1.8 % [facility] Blood Venous blood specimen / Unknown 05/13/2025 10:36 AM EST 05/13/2025 1:03 PM EST [facility] LAB BLOOD ORDERABLES Final Re sult Performing Organization Address [facility] Co de Phone Number [facility] [address] [place] [phone] * Transferrin (05/13/2025 10:36 AM EST) Pathologist [facility] Transferrin 314 188 - 341 mg/dL [facility] Comment:THIS TEST WAS PERFOR MED AT:[facility] [address] [id number] NAIR MD Blood Venous blood specimen / Unknown 05/13/2025 10:36 AM EST 05/13/2025 1:03 PM EST Raul Emerson MAT GAUGER LAB BLOOD ORDERABLES Final Re sult Performing Organization Address [facility]/ZIP Co de Phone Number [facility] [address] [place] [phone] * PTH, Intact Without Calcium (05/13/2025 10:36 AM EST) Parathyroid Hormone, Intact 24.8 8.7 - 77.1 pg/mL [facility] 05/13/2025 10:3 6 AM EST 05/13/2025 1:03 PM EST Viktor Ch MD LAB BLOOD ORDERABL ES Final Result Performing Organization Address [facility] Co de Phone Number [facility] [address] [place] [phone] * Ferritin (05/13/2025 10:36 AM EST) Ferritin 22 20 - 250 ng/mL [facility] Blood Venous blood specimen / Unknown 05/13/2025 10:36 AM EST 05/13/2025 1:03 PM EST Raul Emerson MAT GAUGER LAB BLOOD ORDERABLES Final Re sult Performing Organization Address [facility] Co de Phone Number [facility] [address] [place] [phone] * XR Knee 3 Views Right (05/11/2025 2:52 PM EST) Anatomical Region Laterality Modality Lower Extremities, Knee Right Radiogra phic Imaging 05/11/2025 2:52 PM EST Narrative 05/11/2025 3:19 PM EST [address] [place] [address] XRay Report Signed Patient: Guerrero Baird MR#: [id number] : 1970 Acct:[id number] Age/Sex: 55 / M ADM Date: 05/11/25 Loc: HO.HHCX Attending Dr: Bessie Alanis PA-C Ordering Physician: Bessie Alanis PA-C Date of Service: 05/11/25 Procedure(s): XR knee RT 3V Accession Number(s): [id number] cc: Raul Emerson WORKFORCE DEVELOPMENT SPECIALIST; Bessie Alanis PA-C Reason for Exam: [id number] [...] 05/11/25 1516 DD/ 1452 TD/TT: 05/11/25 1510 [employer]: SHELBY Procedure Note Donotuseinterpreter, Image - 05/11/[address] [address] XRay Report Signed Patient: Srinivas BairdoMR#: [id number] : 1970Acct:[id number] Age/Sex: 55 / MADM Date: 05/11/25 Loc: HO.HHCX Attending Dr: Bessie Alanis PA-C Ordering Physician: Bessie Alanis PA-C Date of Service: 05/11/25 Procedure(s): XR knee RT 3V Accession Number(s): [id number] cc: Raul Emerson WORKFORCE DEVELOPMENT SPECIALIST; Bessie Alanis PA-C Reason for Exam: [id number] [...] 05/11/25 1516 DD/ 1452 TD/TT: 05/11/25 1510 Laborer Chemical Processing: SHELBY [facility] External Provider IMG XR PROCEDURES Final Result * XR Knee 3 Views Left (05/11/2025 2:50 PM EST) Anatomical Region Laterality Modality Lower Extremities, Knee Left [facility] 05/11/2025 2:50 PM EST Narrative 05/11/2025 3:19 PM EST [facility] [address] [place] [address] XRay Report Signed Patient: Guerrero Baird MR#: [id number] : 1970 Acct:[id number] Age/Sex: 55 / M ADM Date: 05/11/25 Loc: HO.HHCX Attending Dr: Bessie Alanis PA-C Ordering Physician: Bessie Alanis PA-C Date of Service: 05/11/25 Procedure(s): XR knee LT 3V Accession Number(s): [id number] cc: Raul Emerson WORKFORCE DEVELOPMENT SPECIALIST; Bessie Alanis PA-C Reason for Exam: [id number] [...] MD Signed By: <Electronically signed by Kenyon rFye MD in OV> 05/11/25 1516 DD/ 1450 TD/TT: 05/11/25 1510 Laborer Chemical Processing: SHELBY Procedure Note Donotuseinterpreter, Image - 05/11/[address] [address] XRay Report Signed Patient: Vaishali Baird#: [id number] : 1970Acct:[id number] Age/Sex: 55 / MADM Date: 05/11/25 Loc: HO.HHCX Attending Dr: Bessie Alanis PA-C Ordering Physician: Bessie Alanis PA-C Date of Service: 05/11/25 Procedure(s): XR knee LT 3V Accession Number(s): [id number] cc: Raul Emerson NP; Bessie Alanis PA-C [...] 05/11/25 1516 DD/ 1450 TD/TT: 05/11/25 1510 Laborer Chemical Processing: SHELBY [facility] External Provider IMG XR PROCEDURES Final Result * Vitamin D, 25-Hydroxy, Total, Immunoassay (05/01/2025 11:05 AM EST) Vitamin D 25-OH Total 118.2 >30 ng/mL [facility] Comment: Health Based Reference Values*< 20 ng/mL Xfzeyencb03-45 ng/mL Insufficient> 30 ng/mL Sufficient*Rebeka TREADWELL. N [...] EST 05/01/2025 1:11 PM EST Raul Emerson [facility] LAB BLOOD ORDERABLES Final Re sult [facility] [address] [place] [address] [phone] * Vitamin B12 (Cobalamin) and Folate Panel, Serum (05/01/2025 11:05 AM EST) Vitamin B12 697 200 - 900 pg/mL [facility] Comment:NORMAL 200-900 PG/ML INDETERMINATE 160-199 PG/ML DEFICIENT < 160 PG/ML Folate 14.3 > or = 4.0 ng/mL [facility] Comment:Reference Values:> o r = 4.0 ng/mL< 4.0 ng/mL suggests folate deficiency Methotrexate, aminopterin and folinic acid(leucovorin) are chemotherapeutic agents whose molecularstructures are similar to folate; therefore, the Architectfolate assay cannot be used for patients using these drugs. 05/01/2025 11:0 5 AM EST 05/01/2025 1:11 PM EST us Generic External Data Provider LAB BLOOD ORDERAB LES Final Result Performing Organization Address [facility] Co de Phone Number [facility] [address] [place] [phone] * PSA, Total With Reflex to PSA, Free (05/01/2025 11:05 AM EST) PSA,Total (Free>4and<10) 1.19 0.00 - 4.00 ng/mL [facility] Comment:A Free PSA was not p [...] ORDERABL ES Final Result Performing Organization Address [facility] Co de Phone Number [facility] [address] [place] [phone] * Tissue Transglutaminase Antibody, IgA (05/01/2025 11:05 AM EST) Transglutaminase IgA <1.0 U/mL [facility] Comment:Value Interpretation ----- <15.0 Antibody not detected> or = 15.0 Antibody detectedTHIS TEST WAS PERFORMED AT:[employer] [place] [id number] NAIR MD 05/01/2025 11:0 5 AM EST 05/01/2025 1:16 PM EST us Generic External Data Provider LAB BLOOD ORDERAB LES Final Result [facility] [address] [place] [address] [phone] * Testosterone, Free (Dialysis) And Total, MS (05/01/2025 11:05 AM EST) Testosterone, Total 593 250 - 1100 ng/dL [facility] Comment:For additional infor matniharika, please refer tohttp://education.[employer]faq/[email or web address](This link is being provided for informational/educational purposes only.)This test was developed and its analytical performancecharacteristics have been determined by [employer] [place], [place]. It hasnot been cleared or approved by the U.S. Food and DrugAdministration. This assay has been validated pursuantto the CLIA regulations and is used for clinicalpurposes. Testosterone, Free 74.7 35.0 - 155.0 pg/mL [facility] Comment:This test was develo ped and its analytical performancecharacteristics have been determined by [employer] [place], [place]. It hasnot been cleared or approved by the U.S. Food and DrugAdministration. This assay has been validated pursuantto the CLIA regulations and is used for clinicalpurposes.THIS TEST WAS PERFORMED AT:[employer] [id number] [place] [address]QXIBCSTFRED GARRIDO MD,PHD Blood Venous blood specimen / Unknown 05/01/2025 11:05 AM EST 05/01/2025 1:11 PM EST Viktor Ch MD LAB BLOOD ORDERABL ES Final Result Performing Organization Address [facility]/ZIP Co de Phone Number [facility] [address] [place] [phone] * C-reactive Protein (05/01/2025 11:05 AM EST) C Reactive Protein 0.20 < or = 0.50 mg/dL [facility] 05/01/2025 11:0 5 AM EST 05/01/2025 1:16 PM EST Generic External Data Provider LAB BLOOD ORDERAB LES Final Result Performing Organization Address [facility] Co de Phone Number [facility] [address] [place] [phone] * (ABNORMAL) Hemoglobin A1c (05/01/2025 11:05 AM EST) Hemoglobin A1c 7.0(H) <6.0 % [facility] Comment:Hemoglobin A1C Refer ence Range Adults: 4.8 - 6.0 % Non diabetic: < 6.0 % Goal: < 7.0 %Additional Action Suggested: > 8.0 %Note: Hemoglobin A1c results are invalid for patients with abnormal amounts of HbF. Blood transfusions may impact the HbA1c concentration in the patient sample. Estimated Average Glucose 154 mg/dL [facility] Comment:eAG = Estimated ave rage glucose which is %A1C expressed asaverage glucose, using the formula of the J1P-SgobvmdJrquebd Glucose study (ADAG), Diabetes Care, Vol.31,#8,Jan. 2007 Blood Venous blood specimen / Unknown 05/01/2025 11:05 AM EST 05/01/2025 1:11 PM EST Viktor Ch MD LAB BLOOD ORDERABL ES Final Result [facility] [address] [place] [phone] [phone] * (ABNORMAL) POCT Hgb A1c (05/01/2025 9:45 AM EST) Hemoglobin A1C 6.7(A) 4.0 - 5.7 % QC Media Lot # [id number] Lot# Expiration Date ,591,752 Blood 05/01/2025 9:45 AM EST Raul Emerson [facility] POINT OF CARE TEST ENTER/EDIT ORDERABLES Final Result * (ABNORMAL) POCT glucose manually resulted (05/01/2025 9:44 AM EST) Glucose Blood, POC 212(A) 60 - 200 mg/dL QC Media Lot # [id number] Lot# Expiration Date 71,028 Blood Capillary blood specimen / Unknown 05/01/2025 9:44 AM EST Raul Emerson [facility] POINT OF CARE TEST ENTER/EDIT ORDERABLES Final Result * (ABNORMAL) Lipid Panel, Standard (02/02/2025 2:11 PM EDT) Triglycerides 91 <150 mg/dL [facility] Comment:Desirable Triglyceri de: less than 150 mg/dLBorderline High Triglyceride 150-199 mg/dLHigh Triglyceride: 200-499 mg/dLVery High Triglyceride: greater than or equal to 5OO mg/dL Cholesterol 237(H) <200 mg/dL [facility] Comment:Desirable Cholestero l: less than 200 mg/dLBorderline High Cholesterol: 200-239 mg/dLHigh Cholesterol: greater than 239 mg/dL LDL Cholesterol Calculated 159(H) <100 mg/dL [facility] Comment:Desirable LDL: less than 100 mg/dLNear Optimal/Above Optimal LDL: 110- 129 mg/dLBorderline High LDL: 130-159 mg/dLHigh LDL: 160-189 mg/dLVery High LDL: greater than or equal to 190 mg/dL HDL Cholesterol 60 >40 mg/dL [facility] Comment:Desirable HDL: great er than 40 mg/dL Note: This HDL assay may give artificially low results in patients with liver disease. Blood Venous blood specimen / Unknown 02/02/2025 2:11 PM EDT 02/02/2025 4:27 PM EDT us Adelita Knutson WORKFORCE DEVELOPMENT SPECIALIST LAB BLOOD ORDERABLES Final Resul t [facility] [address] [place] [phone] [phone] from Last 3 Months or Most Recently Relevant to Health Maintenance Additional Health Concerns Active Problems Noted Date Diagnosed Date Help patients manage their type 2 diabetes 05/11 Weekly blood pressure task 05/11/2025 Help patients manage their type 2 diabetes 05/11 Patient has chronic kidney disease 05/11/2025 Weekly blood pressure task 05/11/2025 Patient has chronic kidney disease 05/11/2025 Insurance [facility] Care Teams Tank Car Reconditioner Relationship Specialty Start Date End Date Raul Emerson FNP [address] [place] [address] PCP - General Family Medicine 05/01/25
--- OUTSIDE RECORDS SUMMARY | 2025-05-21 21:19 | XMS_ITS | Encounter Summary ---
Author Organization [employer] Address [address] [place] [address] 7 [place] [address] Care Team Providers Care Junior Systems Administrator Name Role Phone Raul Emerson Primary Care Provider [phone] Encounter Details Date Type Department Care Team ([facility] st Contact Info) Description 05/04/2025 Results Follow-Up [facility] MEDICINE [address] [place] [address] Raul Emerson FNP [address] [place] [address] POCT Hgb A1c, POCT glucose manually resulted, Vitamin D, 25-Hydroxy, Total, Immunoassay, Additional followed-up results: 2 Social History Tobacco Use Types Packs/Day Years [...] encounter Miscellaneous Notes * Telephone Encounter - Bilile Miner RN - 05/21/2025 9:38 AM EST Tc to pt to let them know per PCP Tc to pt to let them know per PCP Hi, Please contact the patient. Let him know that his serum iron is still low, but is starting to improve. 1) Confirm that he is taking the iron supplement as directed. Ask him to continue taking it as directed. 2) Ask if he istaking his Metformin as directed and how he is tolerating it. Please ask him to note daily blood sugars so we can review them at his next visit and ask him to schedule an appointment to review these in 1 month. Thank you, . No answer, lvm to return call and ask to speak to blue team nurses. Unable to contact letter generated to pt and a FYI sent to PCP. * Telephone Encounter - Billie Miner RN - 05/21/2025 9:38 AM EST ----- Message from Raul Emerson sent at 05/15/2025 10:48 AM EST ----- Regarding: Please contact pt Co, Please contact the patient. Let him know that his serum iron is still low, but is starting to improve. 1) Confirm that he is taking the iron supplement as directed. Ask him to continue taking it as directed. 2) Ask if he is taking his Metformin as directed and how he is tolerating it. Please ask him to note daily blood sugars so we can review them at his next visit and ask him to schedule an appointment to review these in 1 month. Thank you, Raul ----- Message ----- From: Taras Gayle MA Sent: 05/01/2025 9:45 AM EST To: KAVYA Hernandez * Telephone Encounter - Billie Miner RN - 05/20/2025 12:19 PM EST Tc to pt to let them know per PCP Hi, Please contact the patient. Let him know that his serum iron is still low, but is starting to improve. 1) Confirm that he is taking the iron supplement as directed. Ask him to continue taking it as directed. 2) Ask if he is taking his Metformin as directed and how he is tolerating it. Please ask him to note daily blood sugars so we can review them at his next visit and ask him to schedule an appointment to review these in 1 month. Thank you, . No answer, lvm to return call and ask to speak to bolton team nurses. Message will be postponed for third outreach attempt int the AM. * Telephone Encounter - Billie Miner RN - 05/20/2025 12:19 PM EST ----- Message from Raul Emerson sent at 05/15/2025 10:48 AM EST ----- Regarding: Please contact pt Co, Please contact the patient. Let him know that his serum iron is still low, but is starting to improve. 1) Confirm that he is taking the iron supplement as directed. Ask him to continue taking it as directed. 2) Ask if he is taking his Metformin as directed and how he is tolerating it. Please ask him to note daily blood sugars so we can review them at his next visit and ask him to schedule an appointment to review these in 1 month. Thank you, Raul ----- Message ----- From: Taras Gayle MA Sent: 05/01/2025 9:45 AM EST To: KAVYA Hernandez * Telephone Encounter - Billie Miner RN - 05/20/2025 10:57 AM EST Tc to pt to let them know per PCP Hi, Please contact the patient. Let him know that his serum iron is still low, but is starting to improve. 1) Confirm that he is taking the iron supplement as directed. Ask him to continue taking it as directed. 2) Ask if he is taking his Metformin as directed and how he is tolerating it. Please ask him to note daily blood sugars so we can review them at his next visit and ask him to schedule an appointment to review these in 1 month. Thank you, . No answer, lvm to return call and ask to speak to bolton team nurses. Lead Sustainability Specialist will re-attempt call in the PM. * Telephone Encounter - Billie Miner RN - 05/20/2025 10:57 AM EST ----- Message from Raul Emerson sent at 05/15/2025 10:48 AM EST ----- Regarding: Please contact pt Hi, Please contact the patient. Let him know that his serum iron is still low, but is starting to improve. 1) Confirm that he is taking the iron supplement as directed. Ask him to continue taking it as directed. 2) Ask if he is taking his Metformin as directed and how he is tolerating it. Please ask him to note daily blood sugars so we can review them at his next visit and ask him to schedule an appointment to review these in 1 month. Thank you, Raul ----- Message ----- From: Taras Gayle MA Sent: 05/01/2025 9:45 AM EST To: KAVYA Hernandez * Telephone Encounter - Billie Miner RN - 05/05/2025 9:56 AM EST Tc to pt to let them know per PCP Please contact Luz Allan and communicate the followin) Tellhim to stop [...] return call and ask to speak to [facility] nurses. * Telephone Encounter - Billie Miner RN - 05/05/2025 9:56 AM EST ----- Message from Raul Emerson sent at 05/04/2025 6:59 AM EST ----- Please contact Luz Allan and communicate the followin) Tell him to [...] 4 weeks around may. Thank you, Raul documented in this encounter Plan of Treatment Upcoming Encounters Date Type Department Care Team (Late st Contact Info) Description 06/05/2025 10:30 AM EST Office Visit [facility] MEDICINE [address] [place] [address] Raul Emerson FNP [address] [place] [address] 07/31/2025 11:00 AM EST Nutrition [facility] DIABETES/NUTRITION [address] [place], [place] [phone] Camila Garcia, RD [address], [place] [phone] Scheduled Orders Name Type Priority Associated Diagnoses Orde r Schedule Fecal Globin By Immunochemistry Lab Routine Encounter to establish care with new doctor Expected: 05/04/2025 (Approximate), Expires: 05/04/2026 PTH, Intact (ICMA) And Ionized Calcium Lab Routine High vitamin D level Expected: 05/04/2025 (Approximate), Expires: 05/04/2026 documented as of this encounter Goals Goal [...] manage their type 2 diabetes No Katie Roque, NISSA Patient has chronic kidney disease Care Plan Patient has chronic kidney disease No Katie Roque OD Weekly blood pressure task Care Plan Weekly blood pressure task No Katie Roque OD Patient has chronic kidney disease Care Plan Patient has chronic kidney disease No Katie Roque, OD documented as of this encounter Procedures Procedure Name Priority Date/Time Associated Diagnosis Comments CBC WITH AUTO DIFFERENTIAL Routine 05/13/2025 10:36 AM EST Encounter to establish care with new doctor documented in this encounter Results * (ABNORMAL) CBC auto differential (05/13/2025 10:36 AM EST) White Blood Count 13.6(H) 4.8 - 10.8 X10*3/uL [facility] Red Blood Count 4.58(L) 4.60 - 5.80 X10*6/uL [facility] Hemoglobin 10.7(L) 14.0 - 18.0 g/dl [facility] Hematocrit 34.8(L) 42.0 - 52.0 % [facility] Mean Corpuscular Volume 76.0(L) 80.0 - 98.0 fL [facility] Mean Corpuscular Hemoglobin 23.4(L) 27.0 - 33.0 pg [facility] Mean Corpuscular HGB Conc 30.7(L) 31.0 - 36.0 g/dl [facility] Red Cell Distribution Width 16.3(H) 11.0 - 16.0 % [facility] Platelet Count 509(H) 160 - 400 X10*3/uL [facility] Mean Platelet Volume 9.5 9.4 - 12.4 fL [facility] Neutrophils Percent Auto 72.9 45 - 73 % [facility] Imm Gran Pct Auto 0.7(H) 0.0 - 0.4 % [facility] Lymphocytes Percent Auto 18.4(L) 20 - 40 % [facility] Monocytes Percent Auto 7.8 2 - 11 % [facility] Eosinophils Percent Auto 0.1 0 - 4 % [facility] Basophils Percent Auto 0.1 0 - 2 % [facility] NRBC Pct Auto 0.0 0.0 - 0.2 /100WBC [facility] Neutrophils Absolute Auto 9.9(H) 2.0 - 8.3 x10*3/uL [facility] Imm Gran Abs Auto 0.10(H) 0.00 - 0.03 X10*3/uL [facility] Lymphocytes Absolute Auto 2.5 1.2 - 4.9 X10*3/uL [facility] Monocytes Absolute Auto 1.1 0.1 - 1.2 X10*3/uL [facility] Eosinophils Absolute Auto 0.0 0.0 - 0.4 X10*3/uL [facility] Basophils Absolute Auto 0.0 0.0 - 0.2 X10*3/uL [facility] NRBC Abs Auto 0.000 0.0 - 0.012 X10*3/uL [facility] Blood Venous blood specimen / Unknown 05/13/2025 10:36 AM EST 05/13/2025 1:03 PM EST Raul HOFF LAB BLOOD ORDERABLES Final Re sult [facility] [address] [place] [address] [phone] documented in this encounter Visit Diagnoses Diagnosis Encounter to [...] documented as of this encounter Care Teams Junior Systems Administrator Relationship Specialty Start Date End Date Raul Emerson FNP [address] [place] [id number] PCP - General Family Medicine 05/01/25 documented as of this encounter
--- OUTSIDE RECORDS SUMMARY | 2025-05-21 21:20 | XMS_ITS | Encounter Summary ---
Author Organization [employer] Address [address] [place] [address] [place] [address] Care Team Providers Care Oil Field Equipment Mechanic Supervisor Name Role Phone Raul Emerson Primary Care Provider Reason for Visit * Reason Onset Date Comments Returning Call 05/20/2025 Encounter Details Date Type Department Care Team ([facility] Contact Info) Description 05/20/2025 Telephone [facility] MEDICINE [address] [place] [address] Raul Emerson FNP [address] [place] [address] Returning Call Social History Tobacco Use Types Packs/Day Years [...] encounter Miscellaneous Notes * Telephone Encounter - Dirk Stevenson - 05/20/2025 1:45 PM EST Tc from pt stating he received a call from the nurse but sports writer did not see any documentation regarding a call. documented in this encounter Plan of Treatment Upcoming Encounters Date Type Department Care Team (Late st Contact Info) Description 06/05/2025 10:30 AM EST Office Visit [facility] MEDICINE [address] [place] [address] Raul Emerson FNP [address] [place] [address] 07/31/2025 11:00 AM EST Nutrition [facility] DIABETES/NUTRITION [address] [place] [address] [place] [address] documented as of this encounter Goals Goal [...] chronic kidney disease No Katie Roque, OD Weekly blood pressure task Care Plan Weekly blood pressure task No TarThais damonica, OD Patient has chronic kidney disease Care Plan Patient has chronic kidney disease No Katie Roque, OD documented as of this encounter Visit [...] documented as of this encounter Care Teams Oil Field Equipment Mechanic Supervisor Relationship Specialty Start Date End Date Raul Emerson FNP [address] [place] [address] PCP - General Family Medicine 05/01/25 documented as of this encounter
== END 2025-05-21 16:06 | disposition home or self-care (01) ==
LOC: HO.HGI 15:05
PROVIDERS: Visit Provider Nurse Practitioner Family
DX: K21.9 Gastro-esophageal reflux disease without esophagitis (principal); R19.7 Diarrhea, unspecified; D50.9 Iron deficiency anemia, unspecified
CPT/HCPCS: 99215

== ENCOUNTER → 2025-05-21 15:04 | Outpatient (BNVA) | payer OTHER, SELFPAY | PROVIDERS: Visit Provider Nurse Practitioner Family | DX: K21.9 Gastro-esophageal reflux disease without esophagitis (principal); R19.7 Diarrhea, unspecified; D50.9 Iron deficiency anemia, unspecified | CPT/HCPCS: 99212 ==

== ENCOUNTER 2025-06-04 13:06 | Outpatient (AMB) | payer OTHER, MEDICAID, SELFPAY ==
[2025-06-04 13:10] VITALS: BP 130/74; PULSE 96; BMI 31.1
--- NOTE | 2025-06-04 13:10 | A.OFFVIS_ITS ---
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 Intake Note: New patient with ekg dx htn fx sudden cardiac Traffic Administrator Required: No Allergies No Known Allergies Allergy (Verified 05/21/25 15:08) Medication List - Last Reconciled 06/04/25 by Michael Lam MD atorvastatin 10 mg PO DAILY bisacodyl 20 mg (4 x 5 mg) PO ONCE docusate sodium 200 mg (2 x 100 mg) PO BEDTIME ketorolac 10 mg PO Q8H PRN metformin 500 mg PO BID olmesartan 40 mg PO DAILY omeprazole 40 mg PO DAILY peg 3350-electrolytes 236-22.74-6.74 -5.86 gram 240 mL PO ONCE propranolol 10 mg PO BID simethicone (Gas Relief (simethicone)) 500 mg (4 x 125 mg) PO ONCE sucralfate 1 g (10 mL) PO BID PRN HPI Comments Details: Guerrero was refer your for unclear reason but he said he has longstanding history of hypertension as had LVH in the past. 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 He is a poor historian as he is very scattered in his thought process. Patient says he has longstanding history of hypertension for many years and has tried multiple medications in the past and has had intolerance to multiple medication including amlodipine, hydrochlorothiazide. He was on bisoprolol in the past but this was discontinued because of essential tremor and currently on propranolol therapy which treats both. He said [place] was prescribed also statin and atorvastatin at that point time and he had developed left biceps tendon injury and at that time he was told that he should never take atorvastatin or simvastatin. He was given rosuvastatin which she tolerated well. But since [place] has [place] the last many years he has not been able to procure rosuvastatin. He also has recently diagnose diabetes currently on metformin therapy. He said he has had poor diet because of stress and loneliness here and has gained weight and has had high sugars. He said his blood pressure at home in the morning is elevated in the 150 systolic range but after when he takes his medication which are currently prescribed his blood pressure in the evening time in his more in the upper 130 range. He is very anxious about his health condition and heart held given his family history for coronary artery disease. He denies any clear symptoms of chest pain. Denies any orthopnea, PND, leg edema. Denies any prolonged palpitation irregular heartbeat. 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 Review of Systems Const Denies chills, Denies daytime sleepiness, Denies fatigue, Denies fever(s), Denies frequent falls, Denies poor appetite, Denies snoring, Denies stops breathing during sleep, Denies weakness, Denies weight gain and Denies weight loss Eyes Denies loss of vision ENT Denies dizziness and Denies hearing loss Card Denies chest pain, Denies claudication, Denies leg edema, Denies lightheadedness, Denies palpitations, Denies dyspnea, Denies dyspnea on exertion and Denies orthopnea Resp Denies cough, Denies excessive phlegm production, Denies dyspnea, Denies dyspnea on exertion, Denies snoring and Denies wheezing GI Denies abdominal pain, Denies hematochezia, Denies change in bowel habits, Denies nausea and Denies vomiting Denies dysuria and Denies urinary frequency Musc Denies arthralgias, Denies muscle weakness and Denies numbness Skin/Breast Denies nail changes and Denies rash Neuro Denies Abnormal speech present, Denies dizziness, Denies frequent falls, Denies loss of vision, Denies memory loss, Denies numbness and Denies weakness Psych Denies depression and Denies memory loss Endo Denies fatigue and Denies palpitations Bill/Lymph Reports easy bruising and Reports other (anemia) Aller/Immun Denies wheezing Physical Exam Vital Signs: Last Vital Signs Pulse 96 12/18/25 13:10 BP 130/74 06/04/25 13:10 BMI result Body Mass Index 31.1 Const General: cooperative, comfortable, no acute distress, alert, awake and anxious Nutritional Appearance: obese Orientation/consciousness: patient oriented x3 Limitations: no limitations HEENT Head: Yes normocephalic and Yes atraumatic Neck Neck: Yes trachea midline, Yes supple and Yes no JVD Carotids: no bruits Resp Effort & Inspection: normal respiratory effort Auscultation: clear to auscultation bilaterally Cardio Jugular venous distension: no JVD Rate: regular rate Rhythm: regular rhythm Heart sounds: S1 normal heart sound present, S2 normal heart sound present, no click, no gallops and no murmurs GI Auscultation: normal bowel sounds Skin General skin exam: no rashes or lesions noted Neuro General: patient oriented x3 and no focal motor deficits Speech: No Abnormal speech present Extrem General: Yes no clubbing, cyanosis or edema Psych Appearance: grossly normal Affect: Anxious affect present Office Procedures EKG Details: EKGs shows normal sinus rhythm normal EKGs. 02651-[id number], Complete Assessment & Plan Assessment & Plan (1) Hypertensive heart disease: Code(s): I11.9 - Hypertensive heart disease without heart failure Category: Medical Plan: Hypertensive heart disease, self-reported saying that he had LVH while he was in his [place] country. He has longstanding hypertension. His blood pressures seem to be borderline controlled. However he is very anxious. He had also has intolerance to multiple medications in the past. Today the blood pressure is borderline. Will suggest a 24 hour ambulatory blood pressure monitoring to assess adequate blood pressure control. If not will need to select additional antihypertensive therapy and given his limited tolerance may have to choose depending on in his tolerability. May start with increasing his propranolol therapy and/or add Aldactone therapy. Will see. Advised stress mitigation strategy and antianxiety treatment. Also obtain an echocardiogram to assess for LV systolic and diastolic function more importantly to evaluate for LVH which also will help with more aggressive blood pressure lowering. Also has known history of hyperlipidemia with multiple risk factors including hypertension, diabetes and hyperlipidemia and family history for premature coronary artery disease. Recommend coronary calcium score to assess for prognostication from coronary artery disease perspective. He is willing to try rosuvastatin therapy and have taken the liberty to prescribe him 20 mg of rosuvastatin. Follow-up lipid panel in 2-3 months' time. Thank you for allowing me to partake in his care Orders: Orders CT Coronary Calcium Score 1 Week E78.5 - Hyperlipidemia, unspecified CA echo transthoracic complete Today I11.9 - Hypertensive heart disease without heart failure Referrals Nephrology Referral I11.9 - Hypertensive heart disease without heart failure Medications: New rosuvastatin 20 mg PO DAILY 30 tabs 5RF I11.9 - Hypertensive heart disease without heart failure Coding Level of Care Code New Pt Level 4 (22389) Diagnoses Hypertensive heart disease I11.9 CPT Codes EKG - CPT: 27336-[id number], Complete ([id number])
--- OUTSIDE RECORDS SUMMARY | 2025-06-04 17:04 | XMS_ITS | Encounter Summary ---
Author Organization [employer] Address [address] [place] [address] 7 [place] [address] Care Team Providers Care Senior Advocate Name Role Phone Raul Emerson Primary Care Provider [phone] Encounter Details Date Type Department Care Team ([facility] st Contact Info) Description 05/12/2025 Orders Only [facility] MEDICINE [address] [place] [address] Raul Emerson FNP [address] [place] [address] Low iron (Primary Dx) Social History Tobacco [...] Care Team (Late st Contact Info) Description 06/26/2025 3:00 PM EST Office Visit [facility] MEDICINE [address] [place] [address] Raul Emerson FNP [address] [place] [address] 07/31/2025 11:00 AM EST Nutrition [facility] DIABETES/NUTRITION [address] [place] [phone] Camila Garcia, [place]RI[place] [address] [place] [address] documented as of this encounter Goals Goal [...] EST) Iron 52 45 - 160 mcg/dL [facility] Total Iron Binding Capacity 334 228 - 428 mcg/dL [facility] Percent Iron Saturation 16 15 - 50 % [facility] Unsaturated Iron Binding 282 ug/dL [facility] Blood Venous blood specimen / Unknown 05/13/2025 10:36 AM EST 05/13/2025 1:03 PM EST us Raul HOFF LAB BLOOD ORDERABLES Final Re sult [facility] [address] [place] [address] [phone] documented in this encounter Visit Diagnoses [...] as of this encounter Care Teams Senior Advocate Relationship Specialty Start Date End Date Raul Emerson FNP [address] [place] [address] PCP - General Family Medicine 05/01/25 documented as of this encounter
--- OUTSIDE RECORDS SUMMARY | 2025-06-04 17:04 | XMS_ITS | Encounter Summary ---
Author Organization [employer] Address [address] [place] [address] 7 [place] [address] Care Team Providers Care Open Shank Coverer Name Role Phone Raul Emerson Primary Care Provider [phone] Encounter Details Date Type Department Care Team ([facility] st Contact Info) Description 05/12/2025 Results Follow-Up [facility] MEDICINE [address] [place] [address] Raul Emerson FNP [address] [place] [address] XR Knee 3 Views Right Social History [...] Description 06/26/2025 3:00 PM EST Office Visit [facility] MEDICINE [address] [place] [address] Raul Emerson FNP [address] [place] [address] 07/31/2025 11:00 AM EST Nutrition [facility] DIABETES/NUTRITION [address] [place] [address] Camila Garcia, ANDRIA [address] [place] [address] documented as of this encounter Goals Goal [...] documented as of this encounter Care Teams Open Shank Coverer Relationship Specialty Start Date End Date Raul Emerson FNP [address] [place] [address] PCP - General Family Medicine 05/01/25 documented as of this encounter
--- OUTSIDE RECORDS SUMMARY | 2025-06-04 17:04 | XMS_ITS | Encounter Summary ---
Author Organization [employer] Address [address] [facility] 7[address] [place] [address] Care Team Providers Care Jigger Crown Pouncing Machine Operator Name Role Phone Raul Emerson KAVYA Primary Care Provider [phone] Reason for Visit * Reason Comments Med Refill Encounter Details Date Type Department Care Team ([facility] st Contact Info) Description 05/13/2025 Refill [facility] [address] [place] [address] Adelita Knutson NP [address] [place] [address] Hypertension, unspecified type Social History Tobacco Use [...] Description 06/26/2025 3:00 PM EST Office Visit [facility] [address] [place] [address] Raul Emerson FNP [address] [place] [address] 07/31/2025 11:00 AM EST Nutrition [facility] DIABETES/NUTRITION [address] [place] [address] Camila Garcia, ANDRIA [address] [place] [address] documented as of this encounter Goals Goal [...] documented as of this encounter Care Teams Jigger Crown Pouncing Machine Operator Relationship Specialty Start Date End Date Raul Emerson FNP [address] [place] [phone] PCP - General Family Medicine 05/01/25 documented as of this encounter
--- OUTSIDE RECORDS SUMMARY | 2025-06-04 17:04 | XMS_ITS | Encounter Summary ---
Author Organization [employer] Address [address] [place] [address] [place] [address] Care Team Providers Care Nuclear Medicine Tech Name Role Phone Raul Emerson Primary Care Provider [phone] Reason for Visit * Reason Onset Date Comments Returning Call 05/20/2025 Encounter Details Date Type Department Care Team ([facility] Contact Info) Description 05/20/2025 Telephone [facility] [address] [place] [address] Raul Emerson FNP [address] [place] [address] Returning Call Social History Tobacco Use Types [...] received a call from the nurse but verse writer did not see any documentation regarding a call. documented in this encounter Plan of Treatment Upcoming Encounters Date Type Department Care Team (Late st Contact Info) Description 06/26/2025 3:00 PM EST Office Visit [facility] [address] [place] [phone] Raul Emerson FNP [address] [place] [address] 07/31/2025 11:00 AM EST Nutrition [facility] DIABETES/NUTRITION [address] [place] [phone] [place], [place] [phone] documented as of this encounter Goals Goal [...] documented as of this encounter Care Teams Nuclear Medicine Tech Relationship Specialty Start Date End Date Raul Emerson FNP [address] [place] [phone] PCP - General Family Medicine 05/01/25 documented as of this encounter
--- OUTSIDE RECORDS SUMMARY | 2025-06-04 17:04 | XMS_ITS | Clinical Summary ---
Author Organization [employer] Address [address] [place] [address] 7 [place] [address] Care Team Providers Care Vegetable Grower Name Role Phone Raul Emerson KAVYA Primary Care Provider [phone] Allergies No known active allergies Medications lidocaine (Lidoderm) 5 % patchIndications: Left elbow pain Apply 1 patch topically Once per day. Remove & discard patch within 12 hours or as directed by MD. 30 patch 2 5 02/12/20 26 Active naproxen (Naprosyn) 500 MG tabletIndications :Chronic bilateral low back pain without sciatica Take 1 tablet (500 mg) by mouth 2 times daily. 60 tablet 1 05/01/2025 12:10 PM EST 5 06/30/19 26 Active tiZANidine (Zanaflex) 2 MG tablet Take 1 tablet (2 mg) by mouth every 8 (eight) hours if needed for muscle spasms (Chronic lower back pain). 30 tablet 5 Active olmesartan (Benicar) 40 MG tabletIndications :Primary hypertension Take 1 tablet (40 mg) by mouth Once per day. 30 tablet 3 5 08/30/19 26 Active metFORMIN (Glucophage) 1000 MG tabletIndications :Newly diagnosed diabetes (HCC) Take 1 tablet (1,000 mg) by mouth with breakfast and with evening meal. 60 tablet 11 05/01/2025 12:10 PM EST 5 05/01/20 26 Active ferrous sulfate, as mg of FE, (Conor-In-Veronica) 75 (15 Fe) MG/ML dropsIndications: Low iron Take 4 mL every other day on an empty stomach; take with vitamin C. 150 mL 1 Active Ascorbic Acid (vitamin C) 100 MG tabletIndications :Low iron Take this vitamin C 1 x every other day with the iron supplement 30 tablet 1 Active Hospital, Clinic, or Other Facility Administered Medication [...] recently elevated bp and with advice from clip on sunglasses assembler from home pt increased to BID temporarily, [...] Type Department Care Team Description 05/20/2025 Telephone [facility] [address] [place] [address] Raul Emerson FNP Returning Call 05/13/2025 Orders Only [facility] [address] [place], [place] [phone] Viktor Kelley MD 05/13/2025 Refill [facility] [address] [place] [address] Adelita Knutson NP Hypertension, unspecified type 05/12/2025 Orders Only [facility] [address] [place] [address] Raul Emerson FNP Low iron (Primary Dx) 05/12/2025 Results Follow-Up [facility] [address] [place] [address] Raul Emerson FNP XR Knee 3 Views Right 05/11/2025 1:00 PM EST Office Visit [facility] OPTOMETRY [address] [place] [address] Tarmarisol, Katie, OD 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) (Primary Dx); Dry eyes, bilateral; Presbyopia 05/11/2025 Travel 05/08/2025 Telephone [facility] [address] [place] [address] Raul Emerson FNP Referral (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 book referral for compliance review specialist left voicemail to call back to book appointment ) 05/04/2025 Telephone [facility] [address] [place], [place] [phone] Raul Emerson FNP Med Refill 05/04/2025 Travel 05/04/2025 Results Follow-Up [facility] [address] [place] [address] Emerson, Raul, IMCU NURSE POCT Hgb A1c, POCT glucose manually resulted, Vitamin D, 25-Hydroxy, Total, Immunoassay, Additional followed-up results: 2 05/01/2025 9:30 AM EST Office Visit [facility] [address] [place] [phone] Raul Emerson FNP Primary hypertension (Primary Dx); [...] Arthritis of knee 05/01/2025 Travel 04/30/2025 Telephone [facility] [address] [place] [phone] Viktor Kelley MD Chart Prep 04/30/2025 Orders Only [facility] [address] [place] [address] Viktor Kelley MD Primary hypertension (Primary Dx) 04/24/2025 Travel 04/23/2025 Travel 04/22/2025 Refill [facility] [address] [place] [phone] Erasmo Cee MD 04/21/2025 Telephone [facility] [address] [place] [address] Viktor Kelley MD Results 04/17/2025 Refill [facility] [address] [place] [address] Viktor Kelley MD 03/09/2025 3:30 PM EDT Office Visit [facility] [address] [place] [address] Viktor Kelley MD Primary hypertension (Primary Dx); Chronic pain of both knees; Varicose veins of bilateral lower extremities with other complications 03/09/2025 Travel 03/06/2025 Telephone [facility] [address] [place] [address] Viktor Kelley MD chart prep from Last 3 Months Family History Medical [...] Description 06/26/2025 3:00 PM EST Office Visit [facility] [address] [place] [address] Raul Emerson FNP [address] [place] [address] 07/31/2025 11:00 AM EST Nutrition [facility]ET[facility]NUTR[facility] [address] [place] [address] Camila Garcia, [place]RI[place] [address] [place] [address] Health Maintenance Due Date Last Done Comments [...] topic Meningococcal Vaccine Aged Out No berna ga eligible based on patient's age to complete [...] has chronic kidney disease No Katie Roque NISSA Procedures Procedure Name Priority Date/Time Associated Diagnosis [...] Testosterone, Total, MS (05/13/2025 10:36 AM EST) Testosterone, Total 338 250 - 1100 ng/dL [facility] Comment:For additional infor chelsea, please refer tohttp://education.Managed Objects.Ricebook/faq/AebjlWrhpciaqpkbgQHQBBUAFF027(This link is being provided for informational/educational purposes only.)This test was developed and its analytical performancecharacteristics have been determined by [employer] [place], [place]. It hasnot been cleared or approved by the U.S. Food and DrugAdministration. This assay has been validated pursuantto the CLIA regulations and is used for clinicalpurposes.THIS TEST WAS PERFORMED AT:[employer]/[facility] [place] [address]HXEMFYDFRED GARRIDO MD,PHD 05/13/2025 10:3 6 AM EST 05/13/2025 1:03 PM EST us Viktor Ch MD LAB BLOOD ORDERABL ES Final Result [facility] [address] [place] [phone] * (ABNORMAL) CBC auto differential (05/13/2025 10:36 AM EST) White Blood Count 13.6(H) 4.8 - 10.8 X10*3/uL [facility] Red Blood Count 4.58(L) 4.60 - 5.80 X10*6/uL [facility] Hemoglobin 10.7(L) 14.0 - 18.0 g/dl [facility] Hematocrit 34.8(L) 42.0 - 52.0 % [facility] Mean Corpuscular Volume 76.0(L) 80.0 - 98.0 fL [facility] Mean Corpuscular Hemoglobin 23.4(L) 27.0 - 33.0 pg [facility] Mean Corpuscular HGB Conc 30.7(L) 31.0 - 36.0 g/dl [facility] Red Cell Distribution Width 16.3(H) 11.0 - 16.0 % [facility] Platelet Count 509(H) 160 - 400 X10*3/uL [facility] Mean Platelet Volume 9.5 9.4 - 12.4 fL [facility] Neutrophils Percent Auto 72.9 45 - 73 % [facility] Imm Gran Pct Auto 0.7(H) 0.0 - 0.4 % [facility] Lymphocytes Percent Auto 18.4(L) 20 - 40 % [facility] Monocytes Percent Auto 7.8 2 - 11 % [facility] Eosinophils Percent Auto 0.1 0 - 4 % [facility] Basophils Percent Auto 0.1 0 - 2 % [facility] NRBC Pct Auto 0.0 0.0 - 0.2 /100WBC [facility] Neutrophils Absolute Auto 9.9(H) 2.0 - 8.3 x10*3/uL [facility] Imm Gran Abs Auto 0.10(H) 0.00 - 0.03 X10*3/uL [facility] Lymphocytes Absolute Auto 2.5 1.2 - 4.9 X10*3/uL [facility] Monocytes Absolute Auto 1.1 0.1 - 1.2 X10*3/uL [facility] Eosinophils Absolute Auto 0.0 0.0 - 0.4 X10*3/uL [facility] Basophils Absolute Auto 0.0 0.0 - 0.2 X10*3/uL [facility] NRBC Abs Auto 0.000 0.0 - 0.012 X10*3/uL [facility] Blood Venous blood specimen / Unknown 05/13/2025 10:36 AM EST 05/13/2025 1:03 PM EST [facility] BLOOD ORDERABLES Final Re sult Performing Organization Address [facility] Co de Phone Number [facility] [address] [place] [phone] * Iron And Total Iron Binding Capacity (05/13/2025 10:36 AM EST) Only the most recent of2 resultswithin the time period is included. Iron 52 45 - 160 mcg/dL [facility] Total Iron Binding Capacity 334 228 - 428 mcg/dL [facility] Percent Iron Saturation 16 15 - 50 % [facility] Unsaturated Iron Binding 282 ug/dL [facility] Blood Venous blood specimen / Unknown 05/13/2025 10:36 AM EST 05/13/2025 1:03 PM EST Raul [facility] LAB BLOOD ORDERABLES Final Re sult Performing Organization Address [facility] Co de Phone Number [facility] [address] [place] [phone] * (ABNORMAL) Reticulocyte Count (05/13/2025 10:36 AM EST) Reticulocytes Absolute 0.080 0.026 - 0.095 X10*6/uL [facility] Immature Retic Fraction 19.4(H) 2.3 - 13.4 % [facility] Retic HGB Equivalent 24.7(L) 30.0 - 35.0 pg [facility] Reticulocyte Percent 1.7 0.5 - 1.8 % [facility] Blood Venous blood specimen / Unknown 05/13/2025 10:36 AM EST 05/13/2025 1:03 PM EST us Raul Emerson IMCU NURSE LAB BLOOD ORDERABLES Final Re sult Performing Organization Address City/[facility]/ZIP Co de Phone Number [facility] [address] [place] [phone] * Transferrin (05/13/2025 10:36 AM EST) Transferrin 314 188 - 341 mg/dL [facility] Comment:THIS TEST WAS PERFOR MED AT:[employer] [place] [id number] NAIR MD Blood Venous blood specimen / Unknown 05/13/2025 10:36 AM EST 05/13/2025 1:03 PM EST us Raul Emerson IMCU NURSE LAB BLOOD ORDERABLES Final Re sult Performing Organization Address [facility] Co de Phone Number [facility] [address] [place] [phone] * PTH, Intact Without Calcium (05/13/2025 10:36 AM EST) Parathyroid Hormone, Intact 24.8 8.7 - 77.1 pg/mL [facility] 05/13/2025 10:3 6 AM EST 05/13/2025 1:03 PM EST us Viktor Ch MD LAB BLOOD ORDERABL ES Final Result Performing Organization Address [facility] Co de Phone Number [facility] [address] [place] [phone] * Ferritin (05/13/2025 10:36 AM EST) Ferritin 22 20 - 250 ng/mL [facility] Blood Venous blood specimen / Unknown 05/13/2025 10:36 AM EST 05/13/2025 1:03 PM EST Raul Emerson IMCU NURSE LAB BLOOD ORDERABLES Final Re sult Performing Organization Address City/State/[facility] Co de Phone Number [facility] [address] [place] [phone] * XR Knee 3 Views Right (05/11/2025 2:52 PM EST) Anatomical Region Laterality Modality Lower Extremities, Knee Right Radiogra phic Imaging 05/11/2025 2:52 PM EST Narrative 05/11/2025 3:19 PM EST [address] [address] XRay Report Signed Patient: Guerrero Baird MR#: [id number] : 1970 Acct:[id number] Age/Sex: 55 / M ADM Date: 05/11/25 Loc: HO.HHCX Attending Dr: Bessie Alanis PA-C Ordering Physician: Bessie Alanis PA-C Date of Service: 05/11/25 Procedure(s): XR knee RT 3V Accession Number(s): [id number] cc: Raul Emerson GROUND EQUIPMENT MECHANIC; Bessie Alanis PA-C Reason for Exam: [id number] [...] by: Kenyon Frye MD 05/11/2025 03:16 PM [facility] Dictated By: Kenyon Frye MD Signed By: <Electronically signed by Kenyon Frye MD in OV> 05/11/25 1516 DD/ 1452 TD/TT: 05/11/25 1510 Radiologist Chief Of Breast Imaging: SHELBY Procedure Note Donotuseinterpreter, Image - 05/11/2025 [place] [address] XRay Report Signed Patient: Vaishali Baird#: [id number] : 1970Acct:[id number] Age/Sex: 55 / MADM Date: 05/11/25 Loc: HO.HHCX Attending Dr: Bessie Alanis PA-C Ordering Physician: Bessie Alanis PA-C Date of Service: 05/11/25 Procedure(s): XR knee RT 3V Accession Number(s): [id number] cc: Raul Emerson GROUND EQUIPMENT MECHANIC; Bessie Alanis PA-C Reason for Exam: [id number] [...] 05/11/25 1516 DD/ 1452 TD/TT: 05/11/25 1510 Radiologist Chief Of Breast Imaging: SHELBY [facility] External Provider IMG XR PROCEDURES Final Result * XR Knee 3 Views Left (05/11/2025 2:50 PM EST) Anatomical Region Laterality Modality Lower Extremities, Knee Left Radiogra phic Imaging 05/11/2025 2:50 PM EST Narrative 05/11/2025 3:19 PM EST [facility] [address] [place] [address] XRay Report Signed Patient: Guerrero Baird MR#: [id number] : 1970 Acct:[id number] Age/Sex: 55 / M ADM Date: 05/11/25 Loc: HO.HHCX Attending Dr: Bessie Alanis PA-C Ordering Physician: Bessie Alanis PA-C Date of Service: 05/11/25 Procedure(s): XR knee LT 3V Accession Number(s): [id number] cc: Raul Emerson GROUND EQUIPMENT MECHANIC; Bessie Alanis PA-C Reason for Exam: [id number] [...] 05/11/25 1516 DD/ 1450 TD/TT: 05/11/25 1510 Radiologist Chief Of Breast Imaging: SHELBY Procedure Note Donotuseinterpreter, Image - 05/11/[address] [address] XRay Report Signed Patient: Meet BairdR#: [id number] : 1970Acct:[id number] Age/Sex: 55 / MADM Date: 05/11/25 Loc: HO.HHCX Attending Dr: Bessie Alanis PA-C Ordering Physician: Bessie Alanis PA-C Date of Service: 05/11/25 Procedure(s): XR knee LT 3V Accession Number(s): [id number] cc: Raul Emerson GROUND EQUIPMENT MECHANIC; Bessie Alanis PA-C Reason for Exam: M25.569 [...] 05/11/25 1516 DD/ 1450 TD/TT: 05/11/25 1510 Radiologist Chief Of Breast Imaging: SHELBY [facility] External Provider IMG XR PROCEDURES Final Result * Vitamin D, 25-Hydroxy, Total, Immunoassay (05/01/2025 11:05 AM EST) Vitamin D 25-OH Total 118.2 >30 ng/mL [facility] Comment: Health Based Reference Values*< 20 ng/mL Qwweptmdr58-66 ng/mL Insufficient> 30 ng/mL Sufficient*Rebeka TREADWELL. N [...] EST 05/01/2025 1:11 PM EST Raul Emerson IMCU NURSE LAB BLOOD ORDERABLES Final Re sult Performing Organization Address [facility] Co de Phone Number [facility] [address] [place] [phone] * Vitamin B12 (Cobalamin) and Folate Panel, Serum (05/01/2025 11:05 AM EST) Vitamin B12 697 200 - 900 pg/mL [facility] Comment:NORMAL 200-900 PG/ML INDETERMINATE 160-199 PG/ML DEFICIENT < 160 PG/ML Folate 14.3 > or = 4.0 ng/mL [facility] Comment:Reference Values:> o r = 4.0 ng/mL< 4.0 ng/mL suggests folate deficiency Methotrexate, aminopterin and folinic acid(leucovorin) are chemotherapeutic agents whose molecularstructures are similar to folate; therefore, the Architectfolate assay cannot be used for patients using these drugs. 05/01/2025 11:0 5 AM EST 05/01/2025 1:11 PM EST Generic External Data Provider LAB BLOOD ORDERAB LES Final Result Performing Organization Address [facility] de Phone Number [facility] [address] [place] [phone] * PSA, Total With Reflex to PSA, Free (05/01/2025 11:05 AM EST) PSA,Total (Free>4and<10) 1.19 0.00 - 4.00 ng/mL [facility] Comment:A Free PSA was not p [...] ORDERABL ES Final Result Performing Organization Address [facility] de Phone Number [facility] [address] [place] [address] [phone] * Tissue Transglutaminase Antibody, IgA (05/01/2025 11:05 AM EST) Transglutaminase IgA <1.0 U/mL [facility] Comment:Value Interpretation ----- <15.0 Antibody not detected> or = 15.0 Antibody detectedTHIS TEST WAS PERFORMED AT:[employer] [address] [address]KPCHCJAREN NAIR MD 05/01/2025 11:0 5 AM EST 05/01/2025 1:16 PM EST Generic External Data Provider LAB BLOOD ORDERAB LES Final Result Performing Organization Address [facility] de Phone Number [facility] [address] [place] [phone] * Testosterone, Free (Dialysis) And Total, MS (05/01/2025 11:05 AM EST) Testosterone, Total 593 250 - 1100 ng/dL [facility] Comment:For additional infor matniharika, please refer tohttp://education.LoSo/faq/LiibpWftbqkabgfypRLGUPFMNY543(This link is being provided for informational/educational purposes only.)This test was developed and its analytical performancecharacteristics have been determined by [employer] [place], [place]. It hasnot been cleared or approved by the U.S. Food and DrugAdministration. This assay has been validated pursuantto the CLIA regulations and is used for clinicalpurposes. Testosterone, Free 74.7 35.0 - 155.0 pg/mL [facility] Comment:This test was develo ped and its analytical performancecharacteristics have been determined by [employer]. It hasnot been cleared or approved by the U.S. Food and DrugAdministration. This assay has been validated pursuantto the CLIA regulations and is used for clinicalpurposes.THIS TEST WAS PERFORMED AT:[employer]/[facility]VJOT[facility]WN[address] [place] [address]CPLVPUBFRED GARRIDO MD,PHD Blood Venous blood specimen / Unknown 05/01/2025 11:05 AM EST 05/01/2025 1:11 PM EST us Viktor Ch MD LAB BLOOD ORDERABL ES Final Result Performing Organization Address [facility] Co de Phone Number [facility] [address] [place] [phone] * C-reactive Protein (05/01/2025 11:05 AM EST) C Reactive Protein 0.20 < or = 0.50 mg/dL [facility] 05/01/2025 11:0 5 AM EST 05/01/2025 1:16 PM EST us Generic External Data Provider LAB BLOOD ORDERAB LES Final Result Performing Organization Address [facility] de Phone Number [facility] [address] [place] [phone] * (ABNORMAL) Hemoglobin A1c (05/01/2025 11:05 AM EST) Hemoglobin A1c 7.0(H) <6.0 % [facility] Comment:Hemoglobin A1C Refer ence Range Adults: 4.8 - 6.0 % Non diabetic: < 6.0 % Goal: < 7.0 %Additional Action Suggested: > 8.0 %Note: Hemoglobin A1c results are invalid for patients with abnormal amounts of HbF. Blood transfusions may impact the HbA1c concentration in the patient sample. Estimated Average Glucose 154 mg/dL [facility] Comment:eAG = Estimated ave rage glucose which is %A1C expressed asaverage glucose, using the formula of the O0T-DxuhuocBxschbm Glucose study (ADAG), Diabetes Care, Vol.31,#8,Jan. 2007 Blood Venous blood specimen / Unknown 05/01/2025 11:05 AM EST 05/01/2025 1:11 PM EST Viktor Ch MD LAB BLOOD ORDERABL ES Final Result Performing Organization Address City/State/[facility] Co de Phone Number [facility] [address] [place] [phone] * (ABNORMAL) POCT Hgb A1c (05/01/2025 9:45 AM EST) Hemoglobin A1C 6.7(A) 4.0 - 5.7 % QC Media Lot # [id number] Lot# Expiration Date [id number], Blood 05/01/2025 9:45 AM EST Raul Emerson [facility] POINT OF CARE TEST ENTER/EDIT ORDERABLES Final Result * (ABNORMAL) POCT glucose manually resulted (05/01/2025 9:44 AM EST) Glucose Blood, POC 212(A) 60 - 200 mg/dL QC Media Lot # [id number] Lot# Expiration Date 973,026 Blood Capillary blood specimen / Unknown 05/01/2025 9:44 AM EST Raul Emerson [facility] POINT OF CARE TEST ENTER/EDIT ORDERABLES Final Result * (ABNORMAL) Lipid Panel, Standard (02/02/2025 2:11 PM EDT) Triglycerides 91 <150 mg/dL [facility] Comment:Desirable Triglyceri de: less than 150 mg/dLBorderline High Triglyceride 150-199 mg/dLHigh Triglyceride: 200-499 mg/dLVery High Triglyceride: greater than or equal to 5OO mg/dL Cholesterol 237(H) <200 mg/dL [facility] Comment:Desirable Cholestero l: less than 200 mg/dLBorderline High Cholesterol: 200-239 mg/dLHigh Cholesterol: greater than 239 mg/dL LDL Cholesterol Calculated 159(H) <100 mg/dL [facility] Comment:Desirable LDL: less than 100 mg/dLNear Optimal/Above Optimal LDL: 110- 129 mg/dLBorderline High LDL: 130-159 mg/dLHigh LDL: 160-189 mg/dLVery High LDL: greater than or equal to 190 mg/dL HDL Cholesterol 60 >40 mg/dL [facility] Comment:Desirable HDL: great er than 40 mg/dL Note: This HDL assay may give artificially low results in patients with liver disease. Blood Venous blood specimen / Unknown 02/02/2025 2:11 PM EDT 02/02/2025 4:27 PM EDT us Adelita Knutson NP LAB BLOOD ORDERABLES Final Resul t [facility] [address] [place] [address] [phone] from Last 3 Months or Most Recently Relevant to Health Maintenance Additional Health Concerns Active Problems Noted Date Diagnosed Date Help patients manage their type 2 diabetes 05/11 Weekly blood pressure task 05/11/2025 Help patients manage their type 2 diabetes 05/11 Patient has chronic kidney disease 05/11/2025 Weekly blood pressure task 05/11/2025 Patient has chronic kidney disease 05/11/2025 Insurance [facility] Care Teams Vegetable Grower Relationship Specialty Start Date End Date Raul Emerson FNP [address] [place] [address] [phone] PCP - General Family Medicine 05/01/25
== END 2025-06-04 13:48 | disposition home or self-care (01) ==
LOC: HO.HCS 13:06
PROVIDERS: PCP Internal Medicine; Visit Provider Internal Medicine Cardiovascular Disease
DX: I11.9 Hypertensive heart disease without heart failure (principal)
CPT/HCPCS: 93010; 99204

== ENCOUNTER → 2025-06-04 13:06 | Outpatient (BNVA) | payer OTHER, MEDICAID, SELFPAY | PROVIDERS: PCP Internal Medicine; Visit Provider Internal Medicine Cardiovascular Disease | DX: I11.9 Hypertensive heart disease without heart failure (principal) | CPT/HCPCS: 93005; 99202 ==

== ENCOUNTER 2025-06-09 13:36 | Outpatient (REF) | payer OTHER, MEDICAID, SELFPAY ==
--- NOTE | ~2025-06-09 | US_ITS ---
EXAMINATION: US LOWER EXTREMITY VENOUS (REFLUX EXAM), BILATERAL CLINICAL INFORMATION: Varicose veins of the lower extremity with inflammation COMPARISON: None. TECHNIQUE: Color flow triplex imaging and compression Doppler was performed to evaluate both the deep and the superficial systems bilaterally. To evaluate the superficial system, the examination was performed in the upright position. Color-flow Doppler ultrasound and compression ultrasound were utilized. In addition, maneuvers were utilized to demonstrate reflux. FINDINGS: 1. DEEP VENOUS ULTRASOUND OF THE RIGHT LOWER EXTREMITY: Common Femoral Vein: Compressible, normal respiratory variation and augmented flow. Femoral Vein: Compressible, normal color flow and augmentation. Popliteal Vein: Compressible, normal augmentation. Deep Reflux: There is no evidence of reflux in the deep system in either the common femoral vein, superficial femoral or the popliteal vein. 2. SUPERFICIAL ULTRASOUND WITH DOPPLER OF RIGHT LOWER EXTREMITY: GREAT SAPHENOUS VEIN: Saphenofemoral Junction: 0.5 cm; Reflux: 0 ms Proximal Thigh: 0.4 cm; Reflux: 0 ms Mid Thigh: 0.2 cm; Reflux: 0 ms Distal Thigh: 0.2 cm; Reflux: 0 ms At Knee: 0.2 cm; Reflux: 0 ms Below Knee/Proximal Calf: 0.2 cm; Reflux: 0 ms Mid Calf: 0.2 cm; Reflux: 0 ms Ankle/Distal Calf: 0.3 cm; Reflux: 0 ms Lateral / Medial accessory GREAT SAPHENOUS VEIN: None imaged SMALL SAPHENOUS VEIN: Drainage: Thigh extension Saphenopopliteal Junction: 0.1 cm; Reflux: 0 ms Mid calf: 0.2 cm; Reflux: 0 ms Distal: 0.2 cm; Reflux: 0 ms VEIN OF GIACOMINI: Size: NA cm Reflux: NA ms PERFORATORS: Location: Greater saphenous vein, mid thigh Size: 0.3 cm Reflux: 0 ms Location: Greater saphenous vein, proximal calf Size: 0.2 cm Reflux: 0 ms VARICOSITIES > 3mm: Location: None Imaged 3. DEEP VENOUS ULTRASOUND OF THE LEFT LOWER EXTREMITY: Common Femoral Vein: Compressible, normal respiratory variation and augmented flow. Femoral Vein: Compressible, normal color flow and augmentation. Popliteal Vein: Compressible, normal augmentation. Deep Reflux: There is no evidence of reflux in the deep system in either the common femoral vein, superficial femoral or the popliteal vein. 4. SUPERFICIAL ULTRASOUND WITH DOPPLER OF LEFT LOWER EXTREMITY: GREAT SAPHENOUS VEIN: Saphenofemoral Junction: 0.9 cm; Reflux: 0 ms Proximal Thigh: 0.4 cm; Reflux: 0 ms Mid Thigh: 0.2 cm; Reflux: 0 ms Distal Thigh: 0.2 cm; Reflux: 0 ms At Knee: 0.3 cm; Reflux: 0 ms Below Knee/Proximl calf: 0.2 cm; Reflux: 0 ms Mid Calf: 0.2 cm; Reflux: 0 ms Distal Calf/Ankle: 0.2 cm; Reflux: 0 ms Lateral / Medial accessory GREAT SAPHENOUS VEIN: None imaged SMALL SAPHENOUS VEIN: Drainage: Thigh extension Saphenopopliteal Junction: 0.6 cm; Reflux: 0 ms Mid calf: 0.2 cm; Reflux: 0 ms Distal calf: 0.2 cm; Reflux: 0 ms VEIN OF GIACOMINI: Size: NA Reflux: NA PERFORATORS: None imaged VARICOSITIES > 3mm: Location: None Imaged US/US venous duplex LE BI IMPRESSION: Right: No venous reflux is demonstrated. Left: No venous reflux is demonstrated. Electronically signed by: Fuentes Verdugo MD 06/09/2025 02:39 PM EST
--- OUTSIDE RECORDS SUMMARY | 2025-06-09 14:45 | XMS_ITS | Encounter Summary ---
Author Organization [employer] Address [address] [place] [address] 7 [place] [address] Care Team Providers Care Oil Burner Mechanic Name Role Phone Raul Emerson Primary Care Provider [phone] Encounter Details Date Type Department Care Team ([facility] st Contact Info) Description 05/12/2025 Orders Only [facility] [address] [place] [address] Raul Emerson FNP [address] [place] [address] Low iron (Primary Dx) Social History Tobacco [...] Description 06/26/2025 3:00 PM EST Office Visit [facility] [address] [place] [phone] Raul Emerson FNP [address] [place] [address] 07/31/2025 11:00 AM EST Nutrition [facility] [address] [place] [phone] Camila Garcia, [place] [address] [place] [address] documented as of this encounter Goals Goal [...] Iron 52 45 - 160 mcg/dL [facility] Total Iron Binding Capacity 334 228 - 428 mcg/dL [facility] Percent Iron Saturation 16 15 - 50 % [facility] Unsaturated Iron Binding 282 ug/dL [facility] Blood Venous blood specimen / Unknown 05/13/2025 10:36 AM EST 05/13/2025 1:03 PM EST us Raul HOFF [facility] BLOOD ORDERABLES Final Re sult [facility] [address] [place] [address] [phone] documented in this encounter Visit Diagnoses [...] as of this encounter Care Teams Oil Burner Mechanic Relationship Specialty Start Date End Date Raul Emerson FNP [address] [place] [address] PCP - General Family Medicine 05/01/25 documented as of this encounter
--- OUTSIDE RECORDS SUMMARY | 2025-06-09 14:45 | XMS_ITS | Clinical Summary ---
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 pt increased to BID temporarily, [...] Encounters Date Type Department Care Team Description 06/09/2025 Orders Only [facility] External Provider, [facility] 05/20/2025 Telephone [facility] [address] [place] [address] Raul Emerson FNP Returning Call 05/13/2025 Orders Only [facility] [address] [place], [place] [phone] Viktor Kelley MD 05/13/2025 Refill [facility] [address] [place] [address] Adelita Knutson NP Hypertension, unspecified type 05/12/2025 Orders Only [facility] [address] [place] [address] Raul Emerson FNP Low iron (Primary Dx) 05/12/2025 Results Follow-Up [facility] [address] [place] [address] Raul Emerson FNP XR Knee 3 Views Right 05/11/2025 1:00 PM EST Office Visit [facility] [address] [place] [address] Tarka, Katie, OD 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) (Primary Dx); Dry eyes, bilateral; Presbyopia 05/11/2025 Travel 05/08/2025 Telephone [facility] [address] [place] [address] Raul Emerson FNP Referral (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 book referral for 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 left voicemail to call back to book appointment ) 05/04/2025 Telephone [facility] [address] [place], [place] [phone] Raul Emerson FNP Med Refill 05/04/2025 Travel 05/04/2025 Results Follow-Up [facility] [address] [place] [address] Raul Emerson, CLINIC OFFICE ASSISTANT POCT Hgb A1c, POCT glucose manually resulted, Vitamin D, 25-Hydroxy, Total, Immunoassay, Additional followed-up results: 2 05/01/2025 9:30 AM EST Office Visit [facility] [address] [place] [address] Raul Emerson, CLINIC OFFICE ASSISTANT Primary hypertension (Primary Dx); Moderate mixed hyperlipidemia [...] Arthritis of knee 05/01/2025 Travel 04/30/2025 Telephone [facility] [address] [place] [phone] Viktor Kelley MD Chart Prep 04/30/2025 Orders Only [facility] [address] [place] [address] Viktor Kelley MD Primary hypertension (Primary Dx) 04/24/2025 Travel 04/23/2025 Travel 04/22/2025 Refill [facility] [address] [place] [address] Erasmo Cee MD 04/21/2025 Telephone [facility] [address] [place] [address] Viktor Kelley MD Results 04/17/2025 Refill [facility] [address] [place] [address] Viktor Kelley MD from Last 3 Months Family History Medical [...] Description 06/26/2025 3:00 PM EST Office Visit [facility] [address] [place] [address] Raul Emerson FNP [address] [place] [address] 07/31/2025 11:00 AM EST Nutrition [facility] [address] [place] [address] Camila Garcia, [place]RI[place] [address] [place] [address] Health Maintenance Due Date Last Done Comments [...] Procedure Name Priority Date/Time Associated Diagnosis Comments VASC US LOWER EXTREMITY VENOUS DUPLEX BILATERAL Routine 06/09/2025 1:52 PM EST TESTOSTERONE, TOTAL, MS Routine 05/13/20 10:36 AM [...] 05/01/2025 9:45 AM EST Prediabetes POCT GLUCOSE (CPT-01932) Routine 025 9:44 AM EST Prediabetes LIPID PANEL, STANDARD Routine 02/02/2025 2:11 PM EDT Hypertension, unspecified type from Last 3 Months or Most Recently Relevant to Health Maintenance Results * [facility] US Lower Extremity Venous Duplex Bilateral (06/09/2025 1:52 PM EST) 06/09/2025 1:52 PM EST Narrative [facility] - 06/09/2025 2:43 PM EST [address] [address] Ultrasound Report Signed Patient: Guerrero Baird MR#: [id number] : 1970 Acct:[id number] Age/Sex: 55 / M ADM Date: 06/09/25 Loc: . Attending Dr: Dharmesh Hills MD Ordering Physician: Dharmesh Hills MD Date of Service: 06/09/25 Procedure(s): US venous duplex LE BI Accession Number(s): [id number] cc: Raul Emerson DREDGE DECKHAND; Dharmesh Hills MD Reason for Exam: I83.11 - Varicose veins of right lower extremity with inflammation EXAMINATION: US LOWER EXTREMITY VENOUS (REFLUX EXAM), BILATERAL CLINICAL INFORMATION: Varicose veins of the lower extremity with inflammation COMPARISON: None. TECHNIQUE: Color flow triplex imaging and compression Doppler was performed to evaluate both the deep and the superficial systems bilaterally. To evaluate the superficial system, the examination was performed in the upright position. Color-flow Doppler ultrasound and compression ultrasound were utilized. In addition, maneuvers were utilized to demonstrate reflux. FINDINGS: 1. DEEP VENOUS ULTRASOUND OF THE RIGHT LOWER EXTREMITY: Common Femoral Vein: Compressible, normal respiratory variation and augmented flow. Femoral Vein: Compressible, normal color flow and augmentation. Popliteal Vein: Compressible, normal augmentation. Deep Reflux: There is no evidence of reflux in the deep system in either the common femoral vein, superficial femoral or the popliteal vein. 2. SUPERFICIAL ULTRASOUND WITH DOPPLER OF RIGHT LOWER EXTREMITY: GREAT SAPHENOUS VEIN: Saphenofemoral Junction: 0.5 cm; Reflux: 0 ms Proximal Thigh: 0.4 cm; Reflux: 0 ms Mid Thigh: 0.2 cm; Reflux: 0 ms Distal Thigh: 0.2 cm; Reflux: 0 ms At Knee: 0.2 cm; Reflux: 0 ms Below Knee/Proximal Calf: 0.2 cm; Reflux: 0 ms Mid Calf: 0.2 cm; Reflux: 0 ms Ankle/Distal Calf: 0.3 cm; Reflux: 0 ms Lateral / Medial accessory GREAT SAPHENOUS VEIN: None imaged SMALL SAPHENOUS VEIN: Drainage: Thigh extension Saphenopopliteal Junction: 0.1 cm; Reflux: 0 ms Mid calf: 0.2 cm; Reflux: 0 ms Distal: 0.2 cm; Reflux: 0 ms VEIN OF GIACOMINI: Size: NA cm Reflux: NA ms PERFORATORS: Location: Greater saphenous vein, mid thigh Size: 0.3 cm Reflux: 0 ms Location: Greater saphenous vein, proximal calf Size: 0.2 cm Reflux: 0 ms VARICOSITIES > 3mm: Location: None Imaged 3. DEEP VENOUS ULTRASOUND OF THE LEFT LOWER EXTREMITY: Common Femoral Vein: Compressible, normal respiratory variation and augmented flow. Femoral Vein: Compressible, normal color flow and augmentation. Popliteal Vein: Compressible, normal augmentation. Deep Reflux: There is no evidence of reflux in the deep system in either the common femoral vein, superficial femoral or the popliteal vein. 4. SUPERFICIAL ULTRASOUND WITH DOPPLER OF LEFT LOWER EXTREMITY: GREAT SAPHENOUS VEIN: Saphenofemoral Junction: 0.9 cm; Reflux: 0 ms Proximal Thigh: 0.4 cm; Reflux: 0 ms Mid Thigh: 0.2 cm; Reflux: 0 ms Distal Thigh: 0.2 cm; Reflux: 0 ms At Knee: 0.3 cm; Reflux: 0 ms Below Knee/Proximl calf: 0.2 cm; Reflux: 0 ms Mid Calf: 0.2 cm; Reflux: 0 ms Distal Calf/Ankle: 0.2 cm; Reflux: 0 ms Lateral / Medial accessory GREAT SAPHENOUS VEIN: None imaged SMALL SAPHENOUS VEIN: Drainage: Thigh extension Saphenopopliteal Junction: 0.6 cm; Reflux: 0 ms Mid calf: 0.2 cm; Reflux: 0 ms Distal calf: 0.2 cm; Reflux: 0 ms VEIN OF GIACOMINI: Size: NA Reflux: NA PERFORATORS: None imaged VARICOSITIES > 3mm: Location: None Imaged US/US venous duplex LE BI IMPRESSION: Right: No venous reflux is demonstrated. Left: No venous reflux is demonstrated. Electronically signed by: Fuentes Verdugo MD 06/09/2025 02:39 PM EST Dictated By: Fuentes Verdugo MD Signed By: <Electronically signed by Fuentes Verdugo MD in OV> 06/09/25 1439 DD/ 1352 TD/TT: 06/09/25 1414 Management And Budget Analyst: Procedure Note Donotuseinterpreter, Image - 06/09/2025 [place] [address] Ultrasound Report Signed Patient: Vaishali Baird#: [id number] : 1970Acct:[id number] Age/Sex: 55 / MADM Date: 06/09/25 Loc: HO.US Attending Dr: Dharmesh Hills MD Ordering Physician: Dharmesh Hills MD Date of Service: 06/09/25 Procedure(s): US venous duplex LE BI Accession Number(s): [id number] cc: Raul Emerson DREDGE DECKHAND; Dharmesh Hills MD Reason for Exam: I83.11 - Varicose veins of right lower extremity withinflammation EXAMINATION: US LOWER EXTREMITY VENOUS (REFLUX EXAM), BILATERAL CLINICAL INFORMATION: Varicose veins of the lower extremity with inflammation COMPARISON: None. TECHNIQUE: Color flow triplex imaging and compression Doppler was performed to evaluate both the deep and the superficial systems bilaterally. To evaluate the superficial system, the examination was performed in the upright position. Color-flow Doppler ultrasound and compression ultrasound were utilized. In addition, maneuvers were utilized to demonstrate reflux. FINDINGS: 1. DEEP VENOUS ULTRASOUND OF THE RIGHT LOWER EXTREMITY: Common Femoral Vein: Compressible, normal respiratory variation and augmented flow. Femoral Vein: Compressible, normal color flow and augmentation. Popliteal Vein: Compressible, normal augmentation. Deep Reflux: There is no evidence of reflux in the deep system in either the common femoral vein, superficial femoral or the popliteal vein. 2. SUPERFICIAL ULTRASOUND WITH DOPPLER OF RIGHT LOWER EXTREMITY: GREAT SAPHENOUS VEIN: Saphenofemoral Junction: 0.5 cm; Reflux: 0 ms Proximal Thigh: 0.4 cm; Reflux: 0 ms Mid Thigh: 0.2 cm; Reflux: 0 ms Distal Thigh: 0.2 cm; Reflux: 0 ms At Knee: 0.2 cm; Reflux: 0 ms Below Knee/Proximal Calf: 0.2 cm; Reflux: 0 ms Mid Calf: 0.2 cm; Reflux: 0 ms Ankle/Distal Calf: 0.3 cm; Reflux: 0 ms Lateral / Medial accessory GREAT SAPHENOUS VEIN: None imaged SMALL SAPHENOUS VEIN: Drainage: Thigh extension Saphenopopliteal Junction: 0.1 cm; Reflux: 0 ms Mid calf: 0.2 cm; Reflux: 0 ms Distal: 0.2 cm; Reflux: 0 ms VEIN OF GIACOMINI: Size: NA cm Reflux: NA ms PERFORATORS: Location: Greater saphenous vein, mid thigh Size: 0.3 cm Reflux: 0 ms Location: Greater saphenous vein, proximal calf Size: 0.2 cm Reflux: 0 ms VARICOSITIES > 3mm: Location: None Imaged 3. DEEP VENOUS ULTRASOUND OF THE LEFT LOWER EXTREMITY: Common Femoral Vein: Compressible, normal respiratory variation and augmented flow. Femoral Vein: Compressible, normal color flow and augmentation. Popliteal Vein: Compressible, normal augmentation. Deep Reflux: There is no evidence of reflux in the deep system in either the common femoral vein, superficial femoral or the popliteal vein. 4. SUPERFICIAL ULTRASOUND WITH DOPPLER OF LEFT LOWER EXTREMITY: GREAT SAPHENOUS VEIN: Saphenofemoral Junction: 0.9 cm; Reflux: 0 ms Proximal Thigh: 0.4 cm; Reflux: 0 ms Mid Thigh: 0.2 cm; Reflux: 0 ms Distal Thigh: 0.2 cm; Reflux: 0 ms At Knee: 0.3 cm; Reflux: 0 ms Below Knee/Proximl calf: 0.2 cm; Reflux: 0 ms Mid Calf: 0.2 cm; Reflux: 0 ms Distal Calf/Ankle: 0.2 cm; Reflux: 0 ms Lateral / Medial accessory GREAT SAPHENOUS VEIN: None imaged SMALL SAPHENOUS VEIN: Drainage: Thigh extension Saphenopopliteal Junction: 0.6 cm; Reflux: 0 ms Mid calf: 0.2 cm; Reflux: 0 ms Distal calf: 0.2 cm; Reflux: 0 ms VEIN OF GIACOMINI: Size: NA Reflux: NA PERFORATORS: None imaged VARICOSITIES > 3mm: Location: None Imaged US/US venous duplex LE BI IMPRESSION: Right: No venous reflux is demonstrated. Left: No venous reflux is demonstrated. Electronically signed by: Fuentes Verdugo MD 06/09/2025 02:39 PM EST RP Dictated By: Fuentes Verdugo MD Signed By: <Electronically signed by Fuentes Verdugo MD in OV> 06/09/25 1439 DD/ 1352 TD/TT: 06/09/25 1414 Management And Budget Analyst: us [facility] External Provider CV VASC ULAR PROCEDURES Edited Result - Final [facility] [address] [place] [phone] * Testosterone, Total, MS (05/13/2025 10:36 AM EST) Testosterone, Total 338 250 - 1100 ng/dL [facility] Comment:For additional infor mation, please refer [email or web address](This link is being provided for informational/educational purposes only.)This test was developed and its analytical performancecharacteristics have been determined by [employer] [place], [place]. It hasnot been cleared or approved by the U.S. Food and DrugAdministration. This assay has been validated pursuantto the CLIA regulations and is used for clinicalpurposes.THIS TEST WAS PERFORMED AT:[employer] [place] [id number] GARRIDO MD,PHD 05/13/2025 10:3 6 AM EST 05/13/2025 1:03 PM EST us Viktor Ch MD LAB BLOOD ORDERABL ES Final Result [facility] [address] [place] [address] [phone] * (ABNORMAL) CBC auto differential (05/13/2025 10:36 AM EST) White Blood Count 13.6(H) 4.8 - 10.8 X10*3/uL [facility] Red Blood Count 4.58(L) 4.60 - 5.80 X10*6/uL [facility] Hemoglobin 10.7(L) 14.0 - 18.0 g/dl [facility] Hematocrit 34.8(L) 42.0 - 52.0 % [facility] Mean Corpuscular Volume 76.0(L) 80.0 - 98.0 fL [facility] Mean Corpuscular Hemoglobin 23.4(L) 27.0 - 33.0 pg [facility] Mean Corpuscular HGB Conc 30.7(L) 31.0 - 36.0 g/dl [facility] Red Cell Distribution Width 16.3(H) 11.0 - 16.0 % [facility] Platelet Count 509(H) 160 - 400 X10*3/uL [facility] Mean Platelet Volume 9.5 9.4 - 12.4 fL [facility] Neutrophils Percent Auto 72.9 45 - 73 % [facility] Imm Gran Pct Auto 0.7(H) 0.0 - 0.4 % [facility] Lymphocytes Percent Auto 18.4(L) 20 - 40 % [facility] Monocytes Percent Auto 7.8 2 - 11 % [facility] Eosinophils Percent Auto 0.1 0 - 4 % [facility] Basophils Percent Auto 0.1 0 - 2 % [facility] NRBC Pct Auto 0.0 0.0 - 0.2 /100WBC [facility] Neutrophils Absolute Auto 9.9(H) 2.0 - 8.3 x10*3/uL [facility] Imm Gran Abs Auto 0.10(H) 0.00 - 0.03 X10*3/uL [facility] Lymphocytes Absolute Auto 2.5 1.2 - 4.9 X10*3/uL [facility] Monocytes Absolute Auto 1.1 0.1 - 1.2 X10*3/uL [facility] Eosinophils Absolute Auto 0.0 0.0 - 0.4 X10*3/uL [facility] Basophils Absolute Auto 0.0 0.0 - 0.2 X10*3/uL [facility] NRBC Abs Auto 0.000 0.0 - 0.012 X10*3/uL [facility] Blood Venous blood specimen / Unknown 05/13/2025 10:36 AM EST 05/13/2025 1:03 PM EST Raul Emerson [facility] LAB BLOOD ORDERABLES Final Re sult Performing Organization Address City/[facility] Co de Phone Number [facility] [address] [place] [phone] * Iron And Total Iron Binding Capacity (05/13/2025 10:36 AM EST) Only the most recent of2 resultswithin the time period is included. Iron 52 45 - 160 mcg/dL [facility] Total Iron Binding Capacity 334 228 - 428 mcg/dL [facility] Percent Iron Saturation 16 15 - 50 % [facility] Unsaturated Iron Binding 282 ug/dL [facility] Blood Venous blood specimen / Unknown 05/13/2025 10:36 AM EST 05/13/2025 1:03 PM EST Raul [facility] LAB BLOOD ORDERABLES Final Re sult Performing Organization Address [facility] Co de Phone Number [facility] [address] [place] [address] [phone] * (ABNORMAL) Reticulocyte Count (05/13/2025 10:36 AM EST) Reticulocytes Absolute 0.080 0.026 - 0.095 X10*6/uL [facility] Immature Retic Fraction 19.4(H) 2.3 - 13.4 % [facility] Retic HGB Equivalent 24.7(L) 30.0 - 35.0 pg [facility] Reticulocyte Percent 1.7 0.5 - 1.8 % [facility] Blood Venous blood specimen / Unknown 05/13/2025 10:36 AM EST 05/13/2025 1:03 PM EST Raul Emerson [facility] LAB BLOOD ORDERABLES Final Re sult Performing Organization Address [facility] Co de Phone Number [facility] [address] [place] [phone] * Transferrin (05/13/2025 10:36 AM EST) Transferrin 314 188 - 341 mg/dL [facility] Comment:THIS TEST WAS PERFOR MED AT:[employer] [address] [id number] NAIR MD Blood Venous blood specimen / Unknown 05/13/2025 10:36 AM EST 05/13/2025 1:03 PM EST Raul Emerson [facility] LAB BLOOD ORDERABLES Final Re sult Performing Organization Address City/[facility] Co de Phone Number [facility] [address] [place] [phone] * PTH, Intact Without Calcium (05/13/2025 10:36 AM EST) Parathyroid Hormone, Intact 24.8 8.7 - 77.1 pg/mL [facility] 05/13/2025 10:3 6 AM EST 05/13/2025 1:03 PM EST Viktor Ch MD LAB BLOOD ORDERABL ES Final Result Performing Organization Address [facility]/ZIP Co de Phone Number [facility] [address] [place] [address] [phone] * Ferritin (05/13/2025 10:36 AM EST) Ferritin 22 20 - 250 ng/mL [facility] Blood Venous blood specimen / Unknown 05/13/2025 10:36 AM EST 05/13/2025 1:03 PM EST Raul Emerson CLINIC OFFICE ASSISTANT LAB BLOOD ORDERABLES Final Re sult Performing Organization Address [facility] Co de Phone Number [facility] [address] [place] [phone] * XR Knee 3 Views Right (05/11/2025 2:52 PM EST) Anatomical Region Laterality Modality Lower Extremities, Knee Right Radiogra phic Imaging 05/11/2025 2:52 PM EST Narrative 05/11/2025 3:19 PM EST [facility] [address] [place] [address] XRay Report Signed Patient: Guerrero Baird MR#: [id number] : 1970 Acct:[id number] Age/Sex: 55 / M ADM Date: 05/11/25 Loc: .HHCX Attending Dr: Bessie Alanis PA-C Ordering Physician: Bessie Alanis PA-C Date of Service: 05/11/25 Procedure(s): XR knee RT 3V Accession Number(s): [id number] cc: Raul Emerson DREDGE DECKHAND; Bessie Alanis PA-C Reason for Exam: M25.569 [...] 05/11/25 1516 DD/ 1452 TD/TT: 05/11/25 1510 Management And Budget Analyst: SHELBY Procedure Note Donotuseinterpreter, Image - 05/11/[address] [address] XRay Report Signed Patient: Vaishali Baird#: [id number] : 1970Acct:[id number] Age/Sex: 55 / MADM Date: 05/11/25 Loc: HO.HHCX Attending Dr: Bessie Alanis PA-C Ordering Physician: Bessie Alanis PA-C Date of Service: 05/11/25 Procedure(s): XR knee RT 3V Accession Number(s): [id number] cc: Raul Emerson DREDGE DECKHAND; Bessie Alanis PA-C Reason for Exam: M25.569 [...] 05/11/25 1516 DD/ 1452 TD/TT: 05/11/25 1510 Management And Budget Analyst: SHELBY [facility] External Provider IMG XR PROCEDURES Final Result * XR Knee 3 Views Left (05/11/2025 2:50 PM EST) Anatomical Region Laterality Modality Lower Extremities, Knee Left Radiogra phic Imaging 05/11/2025 2:50 PM EST Narrative 05/11/2025 3:19 [place] [address] XRay Report Signed Patient: Guerrero Baird MR#: [id number] : 1970 Acct:[id number] Age/Sex: 55 / M ADM Date: 05/11/25 Loc: HO.HHCX Attending Dr: Bessie Alanis PA-C Ordering Physician: Bessie Alanis PA-C Date of Service: 05/11/25 Procedure(s): XR knee LT 3V Accession Number(s): [id number] cc: Raul Emerson DREDGE DECKHAND; Bessie Alanis PA-C Reason for Exam: M25.569 [...] 05/11/25 1516 DD/ 1450 TD/TT: 05/11/25 1510 Management And Budget Analyst: SHELBY Procedure Note Donotuseinterpreter, Image - 05/11/[address] [address] XRay Report Signed Patient: Meet BairdR#: [id number] : 1970Acct:[id number] Age/Sex: 55 / MADM Date: 05/11/25 Loc: HO.HHCX Attending Dr: Bessie Alanis PA-C Ordering Physician: Bessie Alanis PA-C Date of Service: 05/11/25 Procedure(s): XR knee LT 3V Accession Number(s): [id number] cc: Raul Emerson DREDGE DECKHAND; Bessie Alanis PA-C Reason for Exam: M25.569 [...] 05/11/25 1516 DD/ 1450 TD/TT: 05/11/25 1510 Management And Budget Analyst: SHELBY [facility] External Provider IMG XR PROCEDURES Final Result * Vitamin D, 25-Hydroxy, Total, Immunoassay (05/01/2025 11:05 AM EST) Vitamin D 25-OH Total 118.2 >30 ng/mL [facility] Comment: Health Based Reference Values*< 20 ng/mL Rvowvujua34-91 ng/mL Insufficient> 30 ng/mL Sufficient*Rebeka TREADWELL. N [...] EST 05/01/2025 1:11 PM EST Raul Emerson CLINIC OFFICE ASSISTANT LAB BLOOD ORDERABLES Final Re sult Performing Organization Address [facility]/ZIP Co de Phone Number [facility] [address] [place] [phone] * Vitamin B12 (Cobalamin) and Folate Panel, Serum (05/01/2025 11:05 AM EST) Vitamin B12 697 200 - 900 pg/mL [facility] Comment:NORMAL 200-900 PG/ML INDETERMINATE 160-199 PG/ML DEFICIENT < 160 PG/ML Folate 14.3 > or = 4.0 ng/mL [facility] Comment:Reference Values:> o r = 4.0 ng/mL< 4.0 ng/mL suggests folate deficiency Methotrexate, aminopterin and folinic acid(leucovorin) are chemotherapeutic agents whose molecularstructures are similar to folate; therefore, the Architectfolate assay cannot be used for patients using these drugs. 05/01/2025 11:0 5 AM EST 05/01/2025 1:11 PM EST Generic External Data Provider LAB BLOOD ORDERAB LES Final Result Performing Organization Address [facility]/ZIP Co de Phone Number [facility] [address] [place] [phone] * PSA, Total With Reflex to PSA, Free (05/01/2025 11:05 AM EST) PSA,Total (Free>4and<10) 1.19 0.00 - 4.00 ng/mL [facility] Comment:A Free PSA was not [...] ORDERABL ES Final Result Performing Organization Address [facility] Co de Phone Number [facility] [address] [place] [phone] * Tissue Transglutaminase Antibody, IgA (05/01/2025 11:05 AM EST) Transglutaminase IgA <1.0 U/mL [facility] Comment:Value Interpretation ----- <15.0 Antibody not detected> or = 15.0 Antibody detectedTHIS TEST WAS PERFORMED AT:[employer] [address] [id number] NAIR MD 05/01/2025 11:0 5 AM EST 05/01/2025 1:16 PM EST us Generic External Data Provider LAB BLOOD ORDERAB LES Final Result Performing Organization Address [facility] Co de Phone Number [facility] [address] [place] [phone] * Testosterone, Free (Dialysis) And Total, MS (05/01/2025 11:05 AM EST) Testosterone, Total 593 250 - 1100 ng/dL [facility] Comment:For additional infor chelsea, please refer [email or web address](This link is being provided for informational/educational purposes only.)This test was developed and its analytical performancecharacteristics have been determined by [employer]. It hasnot been cleared or approved by the U.S. Food and DrugAdministration. This assay has been validated pursuantto the CLIA regulations and is used for clinicalpurposes. Testosterone, Free 74.7 35.0 - 155.0 pg/mL [facility] Comment:This test was develo ped and its analytical performancecharacteristics have been determined by [employer] [place], [place]. It hasnot been cleared or approved by the U.S. Food and DrugAdministration. This assay has been validated pursuantto the CLIA regulations and is used for clinicalpurposes.THIS TEST WAS PERFORMED AT:[employer]/[id number] [place] [address]FPYBLAOFRED GARRIDO MD,PHD Blood Venous blood specimen / Unknown 05/01/2025 11:05 AM EST 05/01/2025 1:11 PM EST us Viktor Ch MD LAB BLOOD ORDERABL ES Final Result Performing Organization Address City/[facility] Co de Phone Number [facility] [address] [place] [phone] * C-reactive Protein (05/01/2025 11:05 AM EST) C Reactive Protein 0.20 < or = 0.50 mg/dL [facility] 05/01/2025 11:0 5 AM EST 05/01/2025 1:16 PM EST us Generic External Data Provider LAB BLOOD ORDERAB LES Final Result Performing Organization Address City/[facility] Co de Phone Number [facility] [address] [place] [phone] * (ABNORMAL) Hemoglobin A1c (05/01/2025 11:05 AM EST) Hemoglobin A1c 7.0(H) <6.0 % [facility] Comment:Hemoglobin A1C Refer ence Range Adults: 4.8 - 6.0 % Non diabetic: < 6.0 % Goal: < 7.0 %Additional Action Suggested: > 8.0 %Note: Hemoglobin A1c results are invalid for patients with abnormal amounts of HbF. Blood transfusions may impact the HbA1c concentration in the patient sample. Estimated Average Glucose 154 mg/dL [facility] Comment:eAG = Estimated ave rage glucose which is %A1C expressed asaverage glucose, using the formula of the U7I-RbqalwdMnwqyum Glucose study (ADAG), Diabetes Care, Vol.31,#8,Jan. 2007 Blood Venous blood specimen / Unknown 05/01/2025 11:05 AM EST 05/01/2025 1:11 PM EST Viktor Ch MD LAB BLOOD ORDERABL ES Final Result Performing Organization Address [facility] Co de Phone Number [facility] [address] [place] [address] [phone] * (ABNORMAL) POCT Hgb A1c (05/01/2025 9:45 AM EST) Hemoglobin A1C 6.7(A) 4.0 - 5.7 % QC Media Lot # [id number] Lot# Expiration Date [id number] Blood 05/01/2025 9:45 AM EST Raul SCHNEIDERP POINT OF CARE TEST ENTER/EDIT ORDERABLES Final Result * (ABNORMAL) POCT glucose manually resulted (05/01/2025 9:44 AM EST) Glucose Blood, POC 212(A) 60 - 200 mg/dL QC Media Lot # [id number] Lot# Expiration Date [id number] Blood Capillary blood specimen / Unknown 05/01/2025 9:44 AM EST Raul Emerson CLINIC OFFICE ASSISTANT POINT OF CARE TEST ENTER/EDIT ORDERABLES Final Result * (ABNORMAL) Lipid Panel, Standard (02/02/2025 2:11 PM EDT) Triglycerides 91 <150 mg/dL [facility] Comment:Desirable Triglyceri de: less than 150 mg/dLBorderline High Triglyceride 150-199 mg/dLHigh Triglyceride: 200-499 mg/dLVery High Triglyceride: greater than or equal to 5OO mg/dL Cholesterol 237(H) <200 mg/dL [facility] Comment:Desirable Cholestero l: less than 200 mg/dLBorderline High Cholesterol: 200-239 mg/dLHigh Cholesterol: greater than 239 mg/dL LDL Cholesterol Calculated 159(H) <100 mg/dL [facility] Comment:Desirable LDL: less than 100 mg/dLNear Optimal/Above Optimal LDL: 110- 129 mg/dLBorderline High LDL: 130-159 mg/dLHigh LDL: 160-189 mg/dLVery High LDL: greater than or equal to 190 mg/dL HDL Cholesterol 60 >40 mg/dL [facility] Comment:Desirable HDL: great er than 40 mg/dL Note: This HDL assay may give artificially low results in patients with liver disease. Blood Venous blood specimen / Unknown 02/02/2025 2:11 PM EDT 02/02/2025 4:27 PM EDT Adelita Knutson [facility] LAB BLOOD ORDERABLES Final Resul t [facility] [address] [place] [address] [phone] from Last 3 Months or Most Recently Relevant to Health Maintenance Additional Health Concerns Active Problems Noted Date Diagnosed Date Help patients manage their type 2 diabetes 05/11 Weekly blood pressure task 05/11/2025 Help patients manage their type 2 diabetes 05/11 Patient has chronic kidney disease 05/11/2025 Weekly blood pressure task 05/11/2025 Patient has chronic kidney disease 05/11/2025 Insurance [facility] Care Teams Multineedle Shirrer Relationship Specialty Start Date End Date Raul Emerson FNP [address] [place] [address] [phone] PCP - General Family Medicine 05/01/25
--- OUTSIDE RECORDS SUMMARY | 2025-06-09 14:45 | XMS_ITS | Encounter Summary ---
Author Organization [employer] Address [address] [facility] 7t [place] [address] Care Team Providers Care Gill Net Stringer Name Role Phone Raul Emerson KAVYA Primary Care Provider [phone] Reason for Visit * Reason Comments Med Refill Encounter Details Date Type Department Care Team ([facility] st Contact Info) Description 05/13/2025 Refill [facility] [address] [place] [address] Adelita Knutson NP [address] [place] [address] Hypertension, unspecified type Social History Tobacco Use [...] Description 06/26/2025 3:00 PM EST Office Visit [facility] [address] [place] [phone] Raul Emerson FNP 230 [place] [address] 07/31/2025 11:00 AM EST Nutrition [facility] DIABETES/NUTRITION [address] [place] [address] Camila Garcia, ANDRIA [address] [place] [address] documented as of this encounter Goals Goal [...] documented as of this encounter Care Teams Gill Net Stringer Relationship Specialty Start Date End Date Raul Emerson FNP [address] [place] [phone] PCP - General Family Medicine 05/01/25 documented as of this encounter
--- OUTSIDE RECORDS SUMMARY | 2025-06-09 14:45 | XMS_ITS | Encounter Summary ---
Author Organization [employer] Address [address] [facility] [address] 7[address] [place] [address] Care Team Providers Care Detective Chief Name Role Phone Raul Emerson AKVYA Primary Care Provider [phone] Encounter Details Date Type Department Care Team ([facility] Contact Info) Description 06/09/2025 Orders Only [facility] External Provider, [facility] Social History Tobacco Use Types Packs/Day Years [...] Description 06/26/2025 3:00 PM EST Office Visit [facility] [address] [place] [phone] Raul Emerson FNP [address] [place] [address] 07/31/2025 11:00 AM EST Nutrition [facility] DIABETES/NUTRITION [address] [place] [address] Camila Garcia, RD 230 [place] [address] documented as of this encounter Goals Goal [...] Procedure Name Priority Date/Time Associated Diagnosis Comments [facility] US LOWER EXTREMITY VENOUS DUPLEX BILATERAL Routine 06/09/2025 1:52 PM EST documented in this encounter Results * [facility] US Lower Extremity Venous Duplex Bilateral (06/09/2025 1:52 PM EST) 06/09/2025 1:52 PM EST Narrative [facility] IMAGING - 06/09/2025 2:43 PM EST [address] [address] Ultrasound Report Signed Patient: Guerrero Baird MR#: [id number] : 1970 Acct:[id number] Age/Sex: 55 / M ADM Date: 06/09/25 Loc: .US Attending Dr: Dharmesh Hills MD Ordering Physician: Dharmesh Hills MD Date of Service: 06/09/25 Procedure(s): US venous duplex LE Accession Number(s): [id number] cc: Raul Emerson OPEN HEARTH HELPER; Dharmesh Hills MD Reason for Exam: I83.11 [...] 06/09/25 1439 DD/ 1352 TD/TT: 06/09/25 1414 [employer] Electronic Warfare Officer: Procedure Note Donotuseinterpreter, Image - 06/09/[address] [address] Ultrasound Report Signed Patient: Vaishali Baird#: [id number] : 1970Acct:[id number] Age/Sex: 55 / MADM Date: 06/09/25 Loc: .US Attending Dr: Dharmesh Hills MD Ordering Physician: Dharmesh Hills MD Date of Service: 06/09/25 Procedure(s): US venous duplex LE BI Accession Number(s): [id number] cc: Raul Emerson OPEN HEARTH HELPER; Dharmesh Hills MD Reason for Exam: I83.11 [...] 06/09/25 1439 DD/ 1352 TD/TT: 06/09/25 1414 Ship[employer] Electronic Warfare Officer: [facility] External Provider CV VASC ULAR PROCEDURES Edited Result - Final [facility] [address] [place] [address] documented in this encounter Visit Diagnoses Not on filedocumented [...] documented as of this encounter Care Teams Detective Chief Relationship Specialty Start Date End Date Raul Emerson FNP [address] [place] [address] PCP - General Family Medicine 05/01/25 documented as of this encounter
--- OUTSIDE RECORDS SUMMARY | 2025-06-09 14:45 | XMS_ITS | Encounter Summary ---
Author Organization [employer] Address [address] [place] [address] 7 [place] [address] Care Team Providers Care Fountain Manager Name Role Phone Raul Emerson Primary Care Provider [phone] Encounter Details Date Type Department Care Team ([facility] st Contact Info) Description 05/12/2025 Results Follow-Up [facility] [address] [place] [address] Raul Emerson FNP [address] [place] [address] XR Knee 3 Views Right Social History [...] Description 06/26/2025 3:00 PM EST Office Visit [facility] [address] [place] [address] Raul Emerson FNP [address] [place] [address] 07/31/2025 11:00 AM EST Nutrition [facility] DIABETES/NUTRITION [address] [place] [address] Camila Garcia, ANDRIA [address] [place] [address] documented as of this encounter Goals Goal [...] documented as of this encounter Care Teams Fountain Manager Relationship Specialty Start Date End Date Raul Emerson FNP [address] [place] [address] PCP - General Family Medicine 05/01/25 documented as of this encounter
--- OUTSIDE RECORDS SUMMARY | 2025-06-09 14:45 | XMS_ITS | Encounter Summary ---
Author Organization [employer] Address [address] [place] [address] [place] [address] Care Team Providers Care Prep Person Name Role Phone Raul Emerson Primary Care Provider [phone] Reason for Visit * Reason Onset Date Comments Returning Call 05/20/2025 Encounter Details Date Type Department Care Team ([facility] Contact Info) Description 05/20/2025 Telephone [facility] MEDICINE [address] [place] [address] Raul Emerson FNP [address] [place] [address] Returning Call Social History Tobacco Use Types [...] received a call from the nurse but health technical writer did not see any documentation regarding a call. documented in this encounter Plan of Treatment Upcoming Encounters Date Type Department Care Team (Late st Contact Info) Description 06/26/2025 3:00 PM EST Office Visit [facility] MEDICINE [address] [place] [address] [phone] Raul Emerson FNP [address] [place] [address] 07/31/2025 11:00 AM EST Nutrition [facility] DIABETES/NUTRITION [address] [place] [phone] [place], [place] [phone] documented as of this encounter Goals Goal [...] documented as of this encounter Care Teams Prep Person Relationship Specialty Start Date End Date Raul Emerson FNP [address] [place] [phone] PCP - General Family Medicine 05/01/25 documented as of this encounter
== END 2025-06-09 13:37 | disposition home or self-care (01) ==
LOC: HO.US 13:36
PROVIDERS: Visit Provider Surgery Vascular Surgery
DX: I83.11 Varicose veins of right lower extremity with inflammation (principal)
CPT/HCPCS: 93970

== ENCOUNTER → 2025-06-09 13:38 | Outpatient (BNV) | payer OTHER, MEDICAID, SELFPAY | PROVIDERS: Visit Provider Radiology Diagnostic Radiology | DX: I83.11 Varicose veins of right lower extremity with inflammation (principal) | CPT/HCPCS: 93970 ==

== ENCOUNTER 2025-06-12 14:22 | Outpatient (AMB) | payer OTHER, MEDICAID, SELFPAY ==
--- OUTSIDE RECORDS SUMMARY | 2025-06-12 14:25 | XMS_ITS | Encounter Summary ---
Author Organization [facility] [employer] Address [address] [place] [address] 7 [place] [address] Care Team Providers Care Cable Splicer Name Role Phone Raul Emerson Primary Care Provider [phone] Encounter Details Date Type Department Care Team ([facility] st Contact Info) Description 05/12/2025 Results Follow-Up [facility] MEDICINE [address] [place] [address] Raul Emerson FNP [address] [place] [address] XR Knee 3 Views Right Social History [...] Description 06/26/2025 3:00 PM EST Office Visit [facility] MEDICINE [address] [place] [phone] Raul Emerson FNP [address] [place] [address] 07/31/2025 11:00 AM EST Nutrition [facility] DIABETES/NUTRITION [address] [place] [phone] Camila Garcia, ANDRIA [address] [place] [address] documented as of this encounter Goals Goal [...] documented as of this encounter Care Teams Cable Splicer Relationship Specialty Start Date End Date Raul Emerson FNP [address] [place] [address] PCP - General Family Medicine 05/01/25 documented as of this encounter
--- OUTSIDE RECORDS SUMMARY | 2025-06-12 14:25 | XMS_ITS | Encounter Summary ---
Author Organization [employer] Address [address] [place] [address] [place] [address] Care Team Providers Care Visual Display Manager Name Role Phone Raul Emerson Primary Care Provider [phone] Reason for Visit * Reason Onset Date Comments Returning Call 05/20/2025 Encounter Details Date Type Department Care Team ([facility] Contact Info) Description 05/20/2025 Telephone [facility] MEDICINE [address] [place] [address] Raul Emerson FNP [address] [place] [address] Returning Call Social History Tobacco Use Types [...] received a call from the nurse but publications writer did not see any documentation regarding a call. documented in this encounter Plan of Treatment Upcoming Encounters Date Type Department Care Team (Late st Contact Info) Description 06/26/2025 3:00 PM EST Office Visit [facility] [address] [place] [address] [phone] Raul Emerson FNP [address] [place] [address] 07/31/2025 11:00 AM EST Nutrition [facility] DIABETES/NUTRITION [address] [place] [address] [place], [place] [phone] documented as of this encounter Goals Goal [...] documented as of this encounter Care Teams Visual Display Manager Relationship Specialty Start Date End Date Raul Emerson FNP [address] [place] [address] PCP - General Family Medicine 05/01/25 documented as of this encounter
--- OUTSIDE RECORDS SUMMARY | 2025-06-12 14:25 | XMS_ITS | Encounter Summary ---
Author Organization [employer] Address [address] [place] [address] 7 [place] [address] Care Team Providers Care Favor Maker Name Role Phone Raul Emerson Primary Care Provider [phone] Encounter Details Date Type Department Care Team ([facility] st Contact Info) Description 05/12/2025 Orders Only [facility] MEDICINE [address] [place] [address] Raul Emerson FNP [address] [place] [address] Low iron (Primary Dx) Social History Tobacco [...] Description 06/26/2025 3:00 PM EST Office Visit [facility] MEDICINE [address] [place] [phone] Raul Emerson FNP [address] [place] [address] 07/31/2025 11:00 AM EST Nutrition [facility] DIABETES/NUTRITION [address] [place] [phone] Camila Garcia, ANDRIA [address] [place] [address] documented as of this encounter Goals Goal [...] Patient has chronic kidney disease No Katie oRque OD documented as of this encounter Procedures Procedure Name Priority Date/Time Associated Diagnosis Comments IRON AND TOTAL IRON BINDING CAPACITY Routine 05/13/2025 10:36 AM EST Low iron documented in this encounter Results * Iron And Total Iron Binding Capacity (05/13/2025 10:36 AM EST) Iron 52 45 - 160 mcg/dL [facility] Total Iron Binding Capacity 334 228 - 428 mcg/dL [facility] Percent Iron Saturation 16 15 - 50 % [facility] Unsaturated Iron Binding 282 ug/dL [facility] Blood Venous blood specimen / Unknown 05/13/2025 10:36 AM EST 05/13/2025 1:03 PM EST us Raul HOFF LAB BLOOD ORDERABLES Final Re sult [facility] [address] [place] [phone] [phone] documented in this encounter Visit Diagnoses [...] documented as of this encounter Care Teams Favor Maker Relationship Specialty Start Date End Date Raul Emerson FNP [address] [place] [address] PCP - General Family Medicine 05/01/25 documented as of this encounter
--- OUTSIDE RECORDS SUMMARY | 2025-06-12 14:25 | XMS_ITS | Encounter Summary ---
Author Organization [employer] Address [address] [facility] 7t [place] [address] Care Team Providers Care Cabana Attendant Name Role Phone Raul Emerson KAVYA Primary Care Provider [phone] Reason for Visit * Reason Comments Med Refill Encounter Details Date Type Department Care Team ([facility] st Contact Info) Description 05/13/2025 Refill [facility] [address] [place] [address] Adelita Knutson NP [address] [place] [address] Hypertension, unspecified type Social History Tobacco Use [...] Description 06/26/2025 3:00 PM EST Office Visit [facility] MEDICINE [address] [place] [phone] Raul Emerson FNP [address] [place] [address] 07/31/2025 11:00 AM EST Nutrition [facility] DIABETES/NUTRITION [address] [place] [phone] Camila Garcia, ANDRIA [address] [place] [address] documented as of this encounter Goals Goal [...] documented as of this encounter Care Teams Cabana Attendant Relationship Specialty Start Date End Date Raul Emerson FNP [address] [place] [phone] PCP - General Family Medicine 05/01/25 documented as of this encounter
--- OUTSIDE RECORDS SUMMARY | 2025-06-12 14:25 | XMS_ITS | Encounter Summary ---
Author Organization [employer] Address [address] [place] [address] 7 [place] [address] Care Team Providers Care Fire Hazard Inspector Name Role Phone Raul Emerson Primary Care Provider [phone] Encounter Details Date Type Department Care Team ([facility] st Contact Info) Description 06/11/2025 Results Follow-Up [facility] MEDICINE [address] [place] [address] Raul Emerson FNP [address] [place] [address] [facility] Lower Extremity Venous Duplex Bilateral Social History Tobacco Use Types Packs/Day Years [...] as of this encounter Miscellaneous Notes * Result Encounter Note - KAVYA Hernandez - 06/11/2025 9:20 AM EST Please let the patient know that his ultrasound results indicate that his deep leg veins are healthy and working normally; the varicose veins he sees are smaller veins located near the surface and can likely be treated safely without affecting vein function. Thank you, Raul documented in this encounter Plan of Treatment Upcoming Encounters Date Type Department Care Team (Late st Contact Info) Description 06/26/2025 3:00 PM EST Office Visit [facility] MEDICINE [address] [place] [phone] Raul Emerson FNP [address] [place] [address] 07/31/2025 11:00 AM EST Nutrition [facility] DIABETES/NUTRITION [address] [place], [place] [phone] Camila Garcia RD [address] [place] [address] documented as of this encounter Goals Goal [...] documented as of this encounter Care Teams Fire Hazard Inspector Relationship Specialty Start Date End Date Raul Emerson FNP [address] [place] [address] PCP - General Family Medicine 05/01/25 documented as of this encounter
--- OUTSIDE RECORDS SUMMARY | 2025-06-12 14:25 | XMS_ITS | Encounter Summary ---
Author Organization [employer] Address [address] [place] [address] Care Team Providers Care Wireless Consultant Name Role Phone Raul Emerson KAVYA Primary Care Provider [phone] Encounter Details Date Type Department Care Team ([facility] Contact Info) Description 06/09/2025 Orders Only [facility] External Provider, [facility] Social History Tobacco Use Types Packs/Day Years [...] Description 06/26/2025 3:00 PM EST Office Visit [facility] [address] [place] [phone] Raul Emerson FNP [address] [place] [address] 07/31/2025 11:00 AM EST Nutrition [facility] [address] [place] [phone] Camila Garcia, RD [address] [place] [address] documented as of this encounter Goals Goal [...] Procedure Name Priority Date/Time Associated Diagnosis Comments [facility] US LOWER EXTREMITY VENOUS DUPLEX BILATERAL Routine 06/09/2025 1:52 PM EST documented in this encounter Results * [facility] US Lower Extremity Venous Duplex Bilateral (06/09/2025 1:52 PM EST) 06/09/2025 1:52 PM EST Narrative [facility] - 06/09/2025 2:43 PM EST [address] [address] Ultrasound Report Signed Patient: Guerrero Baird MR#: [id number] : 1970 Acct:[id number] Age/Sex: 55 / M ADM Date: 06/09/25 Loc: .US Attending Dr: Dharmesh Hills MD Ordering Physician: Dharmesh Hills MD Date of Service: 06/09/25 Procedure(s): US venous duplex LE Accession Number(s): [id number] cc: Raul Emerson TOUR SALES REPRESENTATIVE; Dharmesh Hills MD Reason for Exam: I83.11 [...] 06/09/25 1439 DD/ 1352 TD/TT: 06/09/25 1414 Baby Counselor: Procedure Note Donotuseinterpreter, Image - 06/09/[address] [address] Ultrasound Report Signed Patient: Vaishali Baird#: [id number] : 1970Acct:[id number] Age/Sex: 55 / MADM Date: 06/09/25 Loc: .US Attending Dr: Dharmesh Hills MD Ordering Physician: Dharmesh Hills MD Date of Service: 06/09/25 Procedure(s): US venous duplex LE BI Accession Number(s): [id number] cc: Raul Emerson TOUR SALES REPRESENTATIVE; Dharmesh Hills MD Reason for Exam: I83.11 [...] 06/09/25 1439 DD/ 1352 TD/TT: 06/09/25 1414 Baby Counselor: [facility] External Provider CV VASC ULAR PROCEDURES Edited Result - Final [facility] [address] [place] [address] documented in this encounter Visit Diagnoses Not [...] documented as of this encounter Care Teams Wireless Consultant Relationship Specialty Start Date End Date Raul Emerson FNP [address] [place] [address] PCP - General Family Medicine 05/01/25 documented as of this encounter
--- OUTSIDE RECORDS SUMMARY | 2025-06-12 14:25 | XMS_ITS | Clinical Summary ---
Author Organization [employer] Address [address] [place] [address] 7 [place] [address] Care Team Providers Care Oracle Iam Consultant Name Role Phone Raul Emerson KAVYA Primary Care Provider [phone] Allergies No known active allergies Medications lidocaine [...] recently elevated bp and with advice from well driller helper from home pt increased to BID temporarily, [...] Encounters Date Type Department Care Team Description 06/11/2025 Results Follow-Up [facility] [address] [place] [address] Raul Emerson FNP VASC US Lower Extremity Venous Duplex Bilateral 06/09/2025 Orders Only [facility] External Provider, [facility] 05/20/2025 Telephone [facility] [address] [place] [address] Raul Emerson FNP Returning Call 05/13/2025 Orders Only [facility] [address] [place], [place] [phone] Viktor Kelley MD 05/13/2025 Refill [facility] [address] [place] [address] Adelita Knutson NP Hypertension, unspecified type 05/12/2025 Orders Only [facility] [address] [place] [address] Raul Emerson FNP Low iron (Primary Dx) 05/12/2025 Results Follow-Up [facility] [address] [place] [address] Raul Emerson FNP XR Knee 3 Views Right 05/11/2025 1:00 PM EST Office Visit [facility] [address] [place] [address] Tarka, Katie, OD 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) (Primary Dx); Dry eyes, bilateral; Presbyopia 05/11/2025 Travel 05/08/2025 Telephone [facility] [address] [place] [address] Raul Emerson FNP Referral (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 book 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 to call back to book appointment ) 05/04/2025 Telephone [facility] [address] [place] [address] Raul Emerson FNP Med Refill 05/04/2025 Travel 05/04/2025 Results Follow-Up [address] [address] Raul Emerson FNP POCT Hgb A1c, POCT glucose manually resulted, Vitamin D, 25-Hydroxy, Total, Immunoassay, Additional followed-up results: 2 05/01/2025 9:30 AM EST Office Visit [facility] [address] [place] [phone] Raul Emerson FNP Primary hypertension (Primary Dx); [...] Arthritis of knee 05/01/2025 Travel 04/30/2025 Telephone [facility] [address] [place] [address] Viktor Kelley MD Chart Prep 04/30/2025 Orders Only [facility] [address] [place] [address] Viktor Kelley MD Primary hypertension (Primary Dx) 04/24/2025 Travel 04/23/2025 Travel 04/22/2025 Refill [facility] [address] [place] [address] Erasmo Cee MD 04/21/2025 Telephone [facility] [address] [place] [phone] Viktor Kelley MD Results 04/17/2025 Refill [facility] [address] [place] [address] Viktor Kelley MD from Last 3 Months [...] Description 06/26/2025 3:00 PM EST Office Visit [facility] [address] [place] [address] Raul Emerson FNP [address] [place] [address] 07/31/2025 11:00 AM EST Nutrition [facility] [address] [place] [address] Camila Garcia, [place]RI[place] [address] [place] [address] Health Maintenance Due Date Last Done Comments [...] of 2) 2020 COVID-19 Vaccine (1 - 2024-26 season) 2025 Influenza Vaccine (#1) 2025 Diabetes: [...] 05/01/2025 9:45 AM EST Prediabetes POCT GLUCOSE (CPT-94611) Routine 025 9:44 AM EST Prediabetes LIPID PANEL, STANDARD Routine 02/02/2025 2:11 PM EDT Hypertension, unspecified type from Last 3 Months or Most Recently Relevant to Health Maintenance Results * [facility] US Lower Extremity Venous Duplex Bilateral (06/09/2025 1:52 PM EST) 06/09/2025 1:52 PM EST Narrative [facility] - 06/09/2025 2:43 PM EST [place] [address] Ultrasound Report Signed Patient: Guerrero Baird MR#: [id number] : 1970 Acct:[id number] Age/Sex: 55 / M ADM Date: 06/09/25 Loc: . Attending Dr: Dharmesh Hills MD Ordering Physician: Dharmesh Hills MD Date of Service: 06/09/25 Procedure(s): US venous duplex [facility] Accession Number(s): [id number] cc: Raul Emerson PRODUCT COORDINATOR; Dharmesh Hills MD Reason for Exam: I83.11 [...] by: Fuentes Verdugo MD 06/09/2025 02:39 PM [facility] Dictated By: Fuentes Verdugo MD Signed By: <Electronically signed by Fuentes Verdugo MD in OV> 06/09/25 1439 DD/ 1352 TD/TT: 06/09/25 1414 [employer] I[employer] Machine: Procedure Note Donotuseinterpreter, Image - 06/09/2025 [place] [address] Ultrasound Report Signed Patient: Vaishali Baird#: [id number] : 1970Acct:[id number] Age/Sex: 55 / MADM Date: 06/09/25 Loc: . Attending Dr: Dharmesh Hills MD Ordering Physician: Dharmesh Hills MD Date of Service: 06/09/25 Procedure(s): US venous duplex [facility] Accession Number(s): [id number] cc: Raul Emerson PRODUCT COORDINATOR; Dharmesh Hills MD Reason for Exam: I83.11 [...] 06/09/25 1439 DD/ 1352 TD/TT: 06/09/25 1414 Doughnut Icer Machine: [facility] External Provider CV VASC ULAR PROCEDURES Edited Result - Final [facility] [address] [place], [place] [phone] * Testosterone, Total, MS (05/13/2025 10:36 AM EST) Testosterone, Total 338 250 - 1100 ng/dL [facility] Comment:For additional infor chelsea, please refer tohttp://education.Meebo.bettercodes.org/faq/JcjipJjzyljjfmwtwGBELMTDKF622(This link is being provided for informational/educational purposes only.)This test was developed and its analytical performancecharacteristics have been determined by [employer] [place], [place]. It hasnot been cleared or approved by the U.S. Food and DrugAdministration. This assay has been validated pursuantto the CLIA regulations and is used for clinicalpurposes.THIS TEST WAS PERFORMED AT:[facility] [place] [address]KTCMGMVFRED GARRIDO MD,PHD 05/13/2025 10:3 6 AM EST 05/13/2025 1:03 PM EST us Viktor Ch MD LAB BLOOD ORDERABL ES Final Result [facility] [address] [place] [address] [phone] * (ABNORMAL) CBC auto differential (05/13/2025 10:36 AM EST) White Blood Count 13.6(H) 4.8 - 10.8 X10*3/uL [facility] Red Blood Count 4.58(L) 4.60 - 5.80 X10*6/uL [facility] Hemoglobin 10.7(L) 14.0 - 18.0 g/dl [facility] Hematocrit 34.8(L) 42.0 - 52.0 % [facility] Mean Corpuscular Volume 76.0(L) 80.0 - 98.0 fL [facility] Mean Corpuscular Hemoglobin 23.4(L) 27.0 - 33.0 pg [facility] Mean Corpuscular HGB Conc 30.7(L) 31.0 - 36.0 g/dl [facility] Red Cell Distribution Width 16.3(H) 11.0 - 16.0 % [facility] Platelet Count 509(H) 160 - 400 X10*3/uL [facility] Mean Platelet Volume 9.5 9.4 - 12.4 fL [facility] Neutrophils Percent Auto 72.9 45 - 73 % [facility] Imm Gran Pct Auto 0.7(H) 0.0 - 0.4 % [facility] Lymphocytes Percent Auto 18.4(L) 20 - 40 % [facility] Monocytes Percent Auto 7.8 2 - 11 % [facility] Eosinophils Percent Auto 0.1 0 - 4 % [facility] Basophils Percent Auto 0.1 0 - 2 % [facility] NRBC Pct Auto 0.0 0.0 - 0.2 /100WBC [facility] Neutrophils Absolute Auto 9.9(H) 2.0 - 8.3 x10*3/uL [facility] Imm Gran Abs Auto 0.10(H) 0.00 - 0.03 X10*3/uL [facility] Lymphocytes Absolute Auto 2.5 1.2 - 4.9 X10*3/uL [facility] Monocytes Absolute Auto 1.1 0.1 - 1.2 X10*3/uL [facility] Eosinophils Absolute Auto 0.0 0.0 - 0.4 X10*3/uL [facility] Basophils Absolute Auto 0.0 0.0 - 0.2 X10*3/uL [facility] NRBC Abs Auto 0.000 0.0 - 0.012 X10*3/uL [facility] Blood Venous blood specimen / Unknown 05/13/2025 10:36 AM EST 05/13/2025 1:03 PM EST Raul [facility] LAB BLOOD ORDERABLES Final Re sult Performing Organization Address [facility] de Phone Number [facility] [address] [place] [phone] * Iron And Total Iron Binding Capacity (05/13/2025 10:36 AM EST) Only the most recent of2 resultswithin the time period is included. Iron 52 45 - 160 mcg/dL [facility] Total Iron Binding Capacity 334 228 - 428 mcg/dL [facility] Percent Iron Saturation 16 15 - 50 % [facility] Unsaturated Iron Binding 282 ug/dL [facility] Blood Venous blood specimen / Unknown 05/13/2025 10:36 AM EST 05/13/2025 1:03 PM EST [facility] BLOOD ORDERABLES Final Re sult Performing Organization Address City/[facility] Co de Phone Number [facility] [address] [place] [phone] * (ABNORMAL) Reticulocyte Count (05/13/2025 10:36 AM EST) Pathologist [facility] [place] Reticulocytes Absolute 0.080 0.026 - 0.095 X10*6/uL [facility] Immature Retic Fraction 19.4(H) 2.3 - 13.4 % [facility] Retic HGB Equivalent 24.7(L) 30.0 - 35.0 pg [facility] Reticulocyte Percent 1.7 0.5 - 1.8 % [facility] Blood Venous blood specimen / Unknown 05/13/2025 10:36 AM EST 05/13/2025 1:03 PM EST Raul Emerson [facility] LAB BLOOD ORDERABLES Final Re sult Performing Organization Address [facility] Co de Phone Number [facility] [address] [place] [phone] * Transferrin (05/13/2025 10:36 AM EST) Pathologist [facility] [place] Transferrin 314 188 - 341 mg/dL [facility] Comment:THIS TEST WAS PERFOR MED AT:[facility] [place] [id number] NAIR MD Blood Venous blood specimen / Unknown 05/13/2025 10:36 AM EST 05/13/2025 1:03 PM EST Raul Emerson [facility] LAB BLOOD ORDERABLES Final Re sult Performing Organization Address [facility] Phone Number [facility] [address] [place] [phone] * PTH, Intact Without Calcium (05/13/2025 10:36 AM EST) Pathologist [facility] [place] Parathyroid Hormone, Intact 24.8 8.7 - 77.1 pg/mL [facility] 05/13/2025 10:3 6 AM EST 05/13/2025 1:03 PM EST us Viktor Ch MD LAB BLOOD ORDERABL ES Final Result Performing Organization Address [facility]/ZIP Co de Phone Number [facility] [address] [place] [phone] * Ferritin (05/13/2025 10:36 AM EST) Ferritin 22 20 - 250 ng/mL [facility] Blood Venous blood specimen / Unknown 05/13/2025 10:36 AM EST 05/13/2025 1:03 PM EST us Raul Emerson SURVEY RESEARCH ANALYST LAB BLOOD ORDERABLES Final Re sult Performing Organization Address [facility] Co de Phone Number [facility] [address] [place] [phone] * XR Knee 3 Views Right (05/11/2025 2:52 PM EST) Anatomical Region Laterality Modality Lower Extremities, Knee Right Radiogra phic Imaging 05/11/2025 2:52 PM EST Narrative 05/11/2025 3:19 PM EST [address] [address] XRay Report Signed Patient: Guerrero Baird MR#: [id number] : 1970 Acct:[id number] Age/Sex: 55 / M ADM Date: 05/11/25 Loc: HO.HHCX Attending Dr: Bessie Alanis PA-C Ordering Physician: Bessie Alanis PA-C Date of Service: 05/11/25 Procedure(s): XR knee RT 3V Accession Number(s): [id number] cc: Raul Emerson PRODUCT COORDINATOR; Bessie Alanis PA-C Reason for Exam: [id number] [...] by: Kenyon Frye MD 05/11/2025 03:16 PM [facility] Dictated By: Kenyon Frye MD Signed By: <Electronically signed by Kenyon Frye MD in OV> 05/11/25 1516 DD/ 1452 TD/TT: 05/11/25 1510 Doughnut Icer Machine: SHELBY Procedure Note Donotuseinterpreter, Image - 05/11/[address] [address] XRay Report Signed Patient: Vaishali Baird#: [id number] : 1970Acct:[id number] Age/Sex: 55 / MADM Date: 05/11/25 Loc: HO.HHCX Attending Dr: Bessie Alanis PA-C Ordering Physician: Bessie Alanis PA-C Date of Service: 05/11/25 Procedure(s): XR knee RT 3V Accession Number(s): [id number] cc: Raul Emerson PRODUCT COORDINATOR; Bessie Alanis PA-C Reason for Exam: [id number] [...] 05/11/25 1516 DD/ 1452 TD/TT: 05/11/25 1510 Doughnut Icer Machine: SHELBY [facility] External Provider IMG XR PROCEDURES Final Result * XR Knee 3 Views Left (05/11/2025 2:50 PM EST) Anatomical Region Laterality Modality Lower Extremities, Knee Left Radiogra phic Imaging 05/11/2025 2:50 PM EST Narrative 05/11/2025 3:19 PM EST [address] [address] XRay Report Signed Patient: Guerrero Baird MR#: [id number] : 1970 Acct:[id number] Age/Sex: 55 / M ADM Date: 05/11/25 Loc: HO.HHCX Attending Dr: Bessie Alanis PA-C Ordering Physician: Bessie Alanis PA-C Date of Service: 05/11/25 Procedure(s): XR knee LT 3V Accession Number(s): [id number] cc: Raul Emerson NP; Bessie Alanis PA-C [...] by: Kenyon Frye MD 05/11/2025 03:16 PM [facility] Dictated By: Kenyon Frye MD Signed By: <Electronically signed by Kenyon Frye MD in OV> 05/11/25 1516 DD/ 1450 TD/TT: 05/11/25 1510 Doughnut Icer Machine: Procedure Note Donotuseinterpreter, Image - 05/11/[address] [address] XRay Report Signed Patient: Vaishali Baird#: [id number] : 1970Acct:[id number] Age/Sex: 55 / MADM Date: 05/11/25 Loc: HO.HHCX Attending Dr: Bessie Alanis PA-C Ordering Physician: Bessie Alanis PA-C Date of Service: 05/11/25 Procedure(s): XR knee LT 3V Accession Number(s): [id number] cc: Raul Emerson NP; Bessie Alanis PA-C [...] 05/11/25 1516 DD/ 1450 TD/TT: 05/11/25 1510 Doughnut Icer Machine: SHELBY [facility] External Provider IMG XR PROCEDURES Final Result * Vitamin D, 25-Hydroxy, Total, Immunoassay (05/01/2025 11:05 AM EST) Vitamin D 25-OH Total 118.2 >30 ng/mL [facility] Comment: Health Based Reference Values*< 20 ng/mL Cwlfmldzb87-94 ng/mL Insufficient> 30 ng/mL Sufficient*Rebeka TREADWELL. N [...] EST 05/01/2025 1:11 PM EST Raul Emerson SURVEY RESEARCH ANALYST LAB BLOOD ORDERABLES Final Re sult Performing Organization Address [facility]/ZIP Co de Phone Number [facility] [address] [place] [phone] * Vitamin B12 (Cobalamin) and Folate Panel, Serum (05/01/2025 11:05 AM EST) Vitamin B12 697 200 - 900 pg/mL [facility] Comment:NORMAL 200-900 PG/ML INDETERMINATE 160-199 PG/ML DEFICIENT < 160 PG/ML Folate 14.3 > or = 4.0 ng/mL [facility] Comment:Reference Values:> o r = 4.0 ng/mL< 4.0 ng/mL suggests folate deficiency Methotrexate, aminopterin and folinic acid(leucovorin) are chemotherapeutic agents whose molecularstructures are similar to folate; therefore, the Architectfolate assay cannot be used for patients using these drugs. 05/01/2025 11:0 5 AM EST 05/01/2025 1:11 PM EST us Generic External Data Provider LAB BLOOD ORDERAB LES Final Result Performing Organization Address [facility]/ZIP Co de Phone Number [facility] [address] [place] [phone] * PSA, Total With Reflex to PSA, Free (05/01/2025 11:05 AM EST) PSA,Total (Free>4and<10) 1.19 0.00 - 4.00 ng/mL [facility] Comment:A Free PSA was not [...] ORDERABL ES Final Result Performing Organization Address City/[facility]/ZIP Co de Phone Number [facility] [address] [place] [phone] * Tissue Transglutaminase Antibody, IgA (05/01/2025 11:05 AM EST) Transglutaminase IgA <1.0 U/mL [facility] Comment:Value Interpretation ----- <15.0 Antibody not detected> or = 15.0 Antibody detectedTHIS TEST WAS PERFORMED AT:[facility] [place] [id number] NAIR MD 05/01/2025 11:0 5 AM EST 05/01/2025 1:16 PM EST us Generic External Data Provider LAB BLOOD ORDERAB LES Final Result Performing Organization Address City/[facility]/ZIP Co de Phone Number [facility] [address] [place] [phone] * Testosterone, Free (Dialysis) And Total, MS (05/01/2025 11:05 AM EST) Testosterone, Total 593 250 - 1100 ng/dL [facility] Comment:For additional infor mation, please refer tohttp://education.[employer]/faq/YwegcIxnpyslghgfmXPUQBAEEJ926(This link is being provided for informational/educational purposes only.)This test was developed and its analytical performancecharacteristics have been determined by [employer] [place], [place]. It hasnot been cleared or approved by the U.S. Food and DrugAdministration. This assay has been validated pursuantto the CLIA regulations and is used for clinicalpurposes. Testosterone, Free 74.7 35.0 - 155.0 pg/mL [facility] Comment:This test was develo ped and its analytical performancecharacteristics have been determined by [employer] [place], [place]. It hasnot been cleared or approved by the U.S. Food and DrugAdministration. This assay has been validated pursuantto the CLIA regulations and is used for clinicalpurposes.THIS TEST WAS PERFORMED AT:[employer]/[facility] [place] [address]JPLDBMIFRED GARRIDO MD,PHD Blood Venous blood specimen / Unknown 05/01/2025 11:05 AM EST 05/01/2025 1:11 PM EST us Viktor Ch MD LAB BLOOD ORDERABL ES Final Result [facility] [address] [place] [address] [phone] * C-reactive Protein (05/01/2025 11:05 AM EST) C Reactive Protein 0.20 < or = 0.50 mg/dL [facility] 05/01/2025 11:0 5 AM EST 05/01/2025 1:16 PM EST us Generic External Data Provider LAB BLOOD ORDERAB LES Final Result Performing Organization Address [facility] Co de Phone Number [facility] [address] [place] [phone] * (ABNORMAL) Hemoglobin A1c (05/01/2025 11:05 AM EST) Hemoglobin A1c 7.0(H) <6.0 % [facility] Comment:Hemoglobin A1C Refer ence Range Adults: 4.8 - 6.0 % Non diabetic: < 6.0 % Goal: < 7.0 %Additional Action Suggested: > 8.0 %Note: Hemoglobin A1c results are invalid for patients with abnormal amounts of HbF. Blood transfusions may impact the HbA1c concentration in the patient sample. Estimated Average Glucose 154 mg/dL [facility] Comment:eAG = Estimated ave rage glucose which is %A1C expressed asaverage glucose, using the formula of the D7S-FdgvwtmBqhtvzf Glucose study (ADAG), Diabetes Care, Vol.31,#8,Jan. 2007 Blood Venous blood specimen / Unknown 05/01/2025 11:05 AM EST 05/01/2025 1:11 PM EST us Viktor Ch MD LAB BLOOD ORDERABL ES Final Result Performing Organization Address [facility] Co de Phone Number [facility] [address] [place] [phone] * (ABNORMAL) POCT Hgb A1c (05/01/2025 9:45 AM EST) Hemoglobin A1C 6.7(A) 4.0 - 5.7 % QC Media Lot # [id number] Lot# Expiration Date [id number] Blood 05/01/2025 9:45 AM EST us Raul Emerson SURVEY RESEARCH ANALYST POINT OF CARE TEST ENTER/EDIT ORDERABLES Final Result * (ABNORMAL) POCT glucose manually resulted (05/01/2025 9:44 AM EST) Glucose Blood, POC 212(A) 60 - 200 mg/dL QC Media Lot # [id number] Lot# Expiration Date 938,520 Blood Capillary blood specimen / Unknown 05/01/2025 9:44 AM EST Raul Emerson SURVEY RESEARCH ANALYST POINT OF CARE TEST ENTER/EDIT ORDERABLES Final Result * (ABNORMAL) Lipid Panel, Standard (02/02/2025 2:11 PM EDT) Triglycerides 91 <150 mg/dL [facility] Comment:Desirable Triglyceri de: less than 150 mg/dLBorderline High Triglyceride 150-199 mg/dLHigh Triglyceride: 200-499 mg/dLVery High Triglyceride: greater than or equal to 5OO mg/dL Cholesterol 237(H) <200 mg/dL [facility] Comment:Desirable Cholestero l: less than 200 mg/dLBorderline High Cholesterol: 200-239 mg/dLHigh Cholesterol: greater than 239 mg/dL LDL Cholesterol Calculated 159(H) <100 mg/dL [facility] Comment:Desirable LDL: less than 100 mg/dLNear Optimal/Above Optimal LDL: 110- 129 mg/dLBorderline High LDL: 130-159 mg/dLHigh LDL: 160-189 mg/dLVery High LDL: greater than or equal to 190 mg/dL HDL Cholesterol 60 >40 mg/dL [facility] Comment:Desirable HDL: great er than 40 mg/dL Note: This HDL assay may give artificially low results in patients with liver disease. Blood Venous blood specimen / Unknown 02/02/2025 2:11 PM EDT 02/02/2025 4:27 PM EDT Adelita Knutson PRODUCT COORDINATOR LAB BLOOD ORDERABLES Final Resul t [facility] [address] [place] [phone] from Last 3 Months or Most Recently Relevant to Health Maintenance Additional Health Concerns Active Problems Noted Date Diagnosed Date Help patients manage their type 2 diabetes 05/11 Weekly blood pressure task 05/11/2025 Help patients manage their type 2 diabetes 05/11 Patient has chronic kidney disease 05/11/2025 Weekly blood pressure task 05/11/2025 Patient has chronic kidney disease 05/11/2025 Insurance [facility] Care Teams Oracle Iam Consultant Relationship Specialty Start Date End Date Raul Emerson FNP [address] [place] [phone] PCP - General Family Medicine 05/01/25
--- NOTE | 2025-06-12 14:37 | AM.OFFVISNUR ---
Intake Visit Reasons: h pylori Intake Note: Patient presents for collection of?H Pylori?breath test. Patient has been fasting for 1 hour (nothing to eat, drink, no chewing gum or smoking) has not taken any antacid medication for at least 2 weeks and has no allergies to artificial sweeteners. Director Of Research Center Required: Yes Director Of Research Center Services: Director Of Research Center Present Director Of Research Center Name: Zulay Clifford Allergies No Known Allergies Allergy (Verified 06/12/25 14:47) Assessment & Plan Assessment & Plan (1) Acid reflux: Code(s): K21.9 - Gastro-esophageal reflux disease without esophagitis Category: Medical Qualifiers: Esophagitis presence: esophagitis presence not specified Qualified Code(s): K21.9 - Gastro-esophageal reflux disease without esophagitis Plan Patient presents for collection of?H Pylori?breath test. Patient has been fasting for 1 hour (nothing to eat, drink, no chewing gum or smoking) has not taken any antacid medication for at least 2 weeks and has no allergies to artificial sweeteners.???This test checks for an overgrowth of bacteria in your stomach. We all have bacteria but some may have more than others. It is treatable. if the test comes back negative there is nothing else to do. If the test result is positive we will treat you with 2 antibiotics and a medication to decrease the acid in your stomach (PPI) for 2 weeks. Two weeks after you have completed the treatment we will retest you to make sure the overgrowth has resolved. Patient Instructions: Process for specimen collection and reason for testing was explained to the patient. Specimen collection. Patient instructed to take a deep breath and then exhale into the blue bag, filling it up as much as possible. Patient instructed to drink a mixture of water and the artificial sweetener with a straw. A 15 minute wait period was observed. Patient instructed to take a deep breath and then exhale into the pink bag, filling it up as much as possible.? Coding Level of Care Code Established Pt Est Pt Level 1 (05995) Patient Type Established Diagnoses Gastroesophageal reflux disease, unspecified whether esophagitis present K21.9 Esophagitis presence: esophagitis presence not specified
== END 2025-06-12 15:05 | disposition home or self-care (01) ==
LOC: HO.HGI 14:22
PROVIDERS: PCP Internal Medicine; Visit Provider Nurse Practitioner Family
DX: K21.9 Gastro-esophageal reflux disease without esophagitis (principal)

== ENCOUNTER 2025-06-12 15:00 | Outpatient (REF) | payer OTHER, MEDICAID, SELFPAY | END 2025-06-12 15:01 | disposition home or self-care (01) | LOC: HO.LNP 15:00 | PROVIDERS: PCP Internal Medicine; Visit Provider Nurse Practitioner Family | DX: K21.9 Gastro-esophageal reflux disease without esophagitis (principal) | CPT/HCPCS: 83013; 99211 ==